=== PATIENT | male | born 1950 | race Caucasian/White ===

== ENCOUNTER 2024-12-12 05:59 | Emergency (ER) | payer MEDICARE, MEDICAID, SELFPAY ==
[2024-12-12 06:08] VITALS: BP 168/84; BMI 22.7
--- NOTE | 2024-12-12 06:55 | ED.GENMED ---
History of Present Illness
General
Chief Complaint: Crisis Evaluation
Source: patient
Time Seen by Provider: 12/12/24 06:47
History of Present Illness
History of Present Illness:
74-year-old male presents to the emergency room complaining of running out of his medication, Klonopin, 7 days ago. He is feeling withdrawal symptoms which is increased anxiety and restlessness. He states today he felt like slitting his wrists
because of these feelings. He did not actually do anything to hurt himself. Patient receives his medication from his primary care provider. However he ran out of the medicine because he was taking extra as so his primary care doctor would not
refill it early. Otherwise patient has no complaints.
Past History
Past History
ED Past Medical History: CAD, COPD, HTN, [place] (2001, 2003), Psychiatric (Depression) and Other (Hep C, GI bleeding, Cellulitis of the finger, Peripheral neuropahcy, Suicidal behavior, MRSA, Pancreatitis)
ED Past Surgical History: Appendectomy, Cardiac (PTCA with stent 1991, 1992), Tonsilectomy and Other (Hernia repair)
Social History
Tobacco: Smoker
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
Drug: Narcotics (Prescription drug abuse)
Personal:
Living: with family
Employment: Not employed
Family History
Family History: Other (Father with alcoholism and coronary disease and stroke)
Phy Exam
Physical Exam
Physical Exam:
General: Awake, Alert, Oriented X3. No acute distress. Appears stated age
Vitals: unremarkable
Head: Atraumatic
Eyes: Pupils equal, EOMI
Throat: Airway intact, no exudates
Neck: Trachea midline
Lungs: Clear and equal b/l
Heart: Regular rate, no murmurs
Abd: Soft, Nontender, No pulsatile mass
Neuro: Grossly nonfocal exam normal
Skin: Warm, dry, no rash
Extremities: pulses equal b/l, no edema
Course
Orders/Labs/Results
Orders:
Orders
12/12/24 06:15
1:1 Observation - Suicide/ Violent Behavior As Directed
Crisis Consult Urgent
Reason for Consult: SI
12/12/24 06:54
Clonazepam [Klonopin] 1 mg PO NOW STA
12/12/24 07:19
CR Chest - 2 Views Urgent
Comment:
Reason For Exam: copd
12/12/24 07:27
Alcohol Urgent
Aspirin level [Salicylate] Urgent
Basic Metabolic Panel Urgent
Complete Blood Count/With Diff Urgent
TSH Reflex To Free T4 Urgent
Tylenol [Acetaminophen] Urgent
12/12/24 10:40
Urine Drug Abuse Screen Urgent
Date Specimen was Collected: 12/12/24
Time Specimen was Collected: 10:32
Abnormal Lab Results
12/12/24 12/12/24
07:27 10:40
RBC 4.44 L 10^6/uL
(4.70-6.10)
Hgb 12.7 L g/dL
(13.0-18.0)
Hct 37.7 L %
(39.0-52.0)
RDW 21.4 H %
(11.5-14.5)
Abs Immat Gran (auto) 0.6 H 10^3/uL
(0-0.05)
Absolute Monos (auto) 1.0 H 10^3/uL
(0.1-0.6)
Absolute Basos (auto) 0.4 H 10^3/uL
(0-0.2)
Immature Gran % 6.6 H %
(0-0.5)
Lymphocytes % 14.4 L %
(20.5-51.1)
Monocytes % 10.5 H %
(1.7-9.3)
Basophils % 3.8 H %
(0-2)
Sodium 131 L mmol/L
(135-145)
Chloride 97 L mmol/L
(98-107)
Creatinine 0.6 L mg/dL
(0.7-1.3)
Salicylates < 1.0 L mg/dl
(2.0-20.0)
Ur Tricyclics Screen Positive H
(Negative)
12/12/24 07:27
12/12/24 07:27
Vital Signs
Initial and Last Documented VS:
Initial Vital Signs
Temp Pulse Resp BP Pulse Ox
98.9 F 94 22 168/84 97
12/12/24 06:08 12/12/24 06:08 12/12/24 06:08 12/12/24 06:08 12/12/24 06:08
Last Documented Vital Signs
Temp Pulse Resp BP Pulse Ox
97.5 F 75 20 145/86 99
12/12/24 12:00 12/12/24 12:00 12/12/24 12:00 12/12/24 12:00 12/12/24 12:00
MDM/Problems Addressed
Differential Diagnosis Includes:
Suicidal ideations, depression, benzo withdrawal
MDM/Problems Addressed:
Patient presents with suicidal ideations. He is willing to voluntarily sign in for psychiatric care. Physical exam shows no acute or unstable medical conditions. Labs are obtained and showed no unstable conditions that would prevent him from
obtaining inpatient psychiatric care. He does have some chronic medical conditions including COPD and hypertension. However all of these issues are well-controlled at this point. Patient is medically stable and medically cleared for psychiatric
treatment
*Radiology
Radiology exam reviewed: preliminary read by ED provider (No acute disease based on my review of the patient's chest x-ray)
*Pulse Oximetry
Patient hypoxic: no
*Critical Care Note
Total Time (30-74mins, 75-104mins- exclusive of procedures): Not Applicable
ED Attending Note
-
Portions of this chart may have been created with voice recognition software.� Occasional wrong word or��sound alike� substitutions may have occurred due to the inherent limitations of voice recognition software.
Discharge Plan
Departure
Patient Disposition: Psych Facility
Date of Disposition: 12/12/24
Time of Disposition: 09:41
Condition: Fair
Discharge Problem:
Suicidal ideations
Prescriptions:
No Action
trazodone 50 MG tablet
25 mg PO BID@0800,1800
clonazepam 0.5 MG tablet
0.5 mg PO BIDPRN PRN (Reason: anxiety)
clonazepam 0.5 MG tablet
0.5 mg PO DAILY@1800
quetiapine 100 MG tablet
100 mg PO BID
trazodone 100 MG tablet
200 mg PO HS
gabapentin 300 MG capsule
600 mg PO HS
lithium carbonate 300 MG tablet
300 mg PO BID
gabapentin 400 MG capsule
400 mg PO BID@0800,1800
Referrals:
UNKNOWN - PT NOT,INTERVIEWE [Family Provider] -
Interventions
Interventions:
*Risk Screen - Suicide Last Done: 12/12/24 06:08
*General Assessment Last Done: 12/12/24 06:08
*Neglect/Abuse Screening Last Done: 12/12/24 06:08
ED- Fall Risk Assessment Last Done: 12/12/24 07:18
*ED COVID-19 Vaccine History Last Done: 12/12/24 07:18
ED-Psychological Assessment Last Done: 12/12/24 07:18
Discharge Date and Time
Print Language: UPPER SORBIAN
[2024-12-12] MEDS: KLONOPIN 1 MG PO ×2 (07:11→14:56)
[2024-12-12 07:18] VITALS: BP 131/85
[2024-12-12 07:42] LABS: Hematocrit 37.7 % (39.0-52.0); Hemoglobin 12.7 g/dL (13.0-18.0); Mean Corp Hgb Conc. 33.7 g/dL (33.0-37.0); Mean Corpuscular Hgb 28.6 pg (27.0-31.0); Mean Corpuscular Volume 84.9 fL (80.0-94.0); Mean Platelet Volume 9.3 fL (7.4-10.4); Platelet Count 243 10^3/uL (130-400); Red Blood Cell Count 4.44 10^6/uL (4.70-6.10); Red Cell Dist. Width 21.4 % (11.5-14.5); White Blood Cell Count 9.3 10^3/uL (4.8-10.8)
[2024-12-12 07:55] LABS: Acetaminophen 10 ug/ml (10-30); Blood Urea Nitrogen 16 mg/dl (9-20); Calcium 8.8 mg/dl (8.4-10.2); Carbon Dioxide 28 mmol/L (22-30); Chloride 97 mmol/L (98-107); Estimated Creatinine Clearance 117 ml/min; Glucose 98 mg/dl (70-99); Potassium 4.6 mmol/L (3.5-5.1); Salicylate < 1.0 mg/dl (2.0-20.0); Sodium 131 mmol/L (135-145); eGFR > 60.00
[2024-12-12 07:56] LABS: Alcohol None Detected
[2024-12-12 08:16] LABS: % Basophils 3.8 % (0-2); % Eosinophils 5.1 % (0-6); % Immature Granulocytes 6.6 % (0-0.5); % Lymphocytes 14.4 % (20.5-51.1); % Monocytes 10.5 % (1.7-9.3); % Neutrophils 59.6 % (42.2-75.2); Absolute Basophils 0.4 10^3/uL (0-0.2); Absolute Eosinophils 0.5 10^3/uL (0-0.7); Absolute Immature Granulocytes 0.6 10^3/uL (0-0.05); Absolute Lymphocytes 1.3 10^3/uL (1.2-3.4); Absolute Neutrophils 5.6 10^3/uL (1.4-6.5); Nucleated Red Blood Cells % 0 % (-)
[2024-12-12 08:31] LABS: TSH Reflex To Free T4 1.25 uIU/ml (0.47-4.68)
[2024-12-12 11:24] LABS: Amphetamines Negative (Negative); Barbiturates Negative (Negative); Benzodiazepines Negative (Negative); Buprenorphine Negative (Negative); Cocaine Negative (Negative); Marijuana Negative (Negative); Methadone Negative (Negative); Methamphetamines Negative (Negative); Opiates Negative (Negative); Phencyclidine Negative (Negative); Tricyclic Antidepressants Positive (Negative)
[2024-12-12 12:00] VITALS: BP 145/86
[2024-12-12 16:00] VITALS: BP 142/75
--- NOTE | 2024-12-12 19:15 | EDRN ---
Report received, patient is sleeping, should be going to [facility] tonight, transport delayed due to power issues
== END 2024-12-12 22:53 ==
LOC: EMR 05:59
PROVIDERS: EMERGENCY PHYSICIAN Emergency Medicine
DX: R45.851 Suicidal ideations (principal); F41.9 Anxiety disorder, unspecified; F32.A Depression, unspecified; F17.200 Nicotine dependence, unspecified, uncomplicated; I10 Essential (primary) hypertension; I25.10 Atherosclerotic heart disease of native coronary artery without angina pectoris; I25.2 Old myocardial infarction; J44.9 Chronic obstructive pulmonary disease, unspecified; Z86.19 Personal history of other infectious and parasitic diseases; Z95.5 Presence of coronary angioplasty implant and graft; Z79.899 Other long term (current) drug therapy
CPT/HCPCS: 99285; 71046; 80048; 80143; 80179; 80306; 82077; 84443; 85025

== ENCOUNTER 2025-09-09 09:55 | Inpatient (IN) | payer OTHER, MEDICAID, SELFPAY ==
[2025-09-08] VITALS (10 sets, daily range): BP systolic 95–130; BP diastolic 50–119; PULSE 66–76; BMI 20.9; BMI 20.2
[2025-09-08 18:50] LABS: Glucose - Point of Care 91 mg/dl (70-99)
[2025-09-08 19:04] LABS: ALT (SGPT) 19 U/L (0-50); AST (SGOT) 26 U/L (17-59); Albumin 3.7 g/dl (3.5-5.0); Alkaline Phosphatase 67 U/L (38-126); Blood Urea Nitrogen 18 mg/dl (9-20); Calcium 8.8 mg/dl (8.4-10.2); Carbon Dioxide 32 mmol/L (22-30); Chloride 95 mmol/L (98-107); Estimated Creatinine Clearance 80 ml/min; Glucose 86 mg/dl (70-99); Potassium 4.5 mmol/L (3.5-5.1); Sodium 129 mmol/L (135-145); Total Protein 6.8 g/dl (6.3-8.2); eGFR > 60.00
[2025-09-08 19:09] LABS: Hematocrit 34.3 % (39.0-52.0); Hemoglobin 10.6 g/dL (13.0-18.0); Mean Corp Hgb Conc. 30.9 g/dL (33.0-37.0); Mean Corpuscular Volume 91.2 fL (80.0-94.0); Platelet Count 198 10^3/uL (130-400); Red Cell Dist. Width 19.6 % (11.5-14.5)
[2025-09-08 19:16] LABS: Troponin I 0.014 ng/ml
--- NOTE | 2025-09-08 19:26 | ED.GENMED ---
History of Present Illness
General
Chief Complaint: Failure to Thrive
Source: patient
Exam Limitations: none
Time Seen by Provider: 09/08/25 19:03
Nursing documentation reviewed up to this point in time: agreed with
History of Present Illness
History of Present Illness:
Patient presents to ED secondary to fall at home, secondary to feeling lightheaded along with 'tremor'. Patient reports hitting his forehead on the floor when he fell down. Denies loss of consciousness. Denies neck pain. Denies preceding chest
pain or palpitations. Denies nausea, vomiting, or diarrhea. Denies headache. Denies blurry vision. Denies loss of sensation or weakness. Patient reports that his of over 50 years recently passed. Patient reports feeling sad and only
eating maybe 1 meal a day, or whenever he feels hungry. Denies lack of sleep. Denies suicidal ideation. Denies recent change in medications. Denies recent illness.
Past History
Past History
ED Past Medical History: CAD, COPD, HTN, [place] (2001, 2003), Psychiatric (Depression) and Other (Hep C, GI bleeding, Cellulitis of the finger, Peripheral neuropahcy, Suicidal behavior, MRSA, Pancreatitis)
ED Past Surgical History: Appendectomy, Cardiac (PTCA with stent 1991, 1992), Tonsilectomy and Other (Hernia repair)
Social History
Tobacco: Smoker
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
Drug: Narcotics (Prescription drug abuse)
Personal:
Living: with family
Employment: Not employed
Family History
Family History: Other (Father with alcoholism and coronary disease and stroke)
Review of Systems
Review of Systems
Allergies reviewed?: Yes
All Other Systems: ROS reviewed and negative except as documented in HPI and ROS
Constitutional: Reports no symptoms; Denies fever
Respiratory: Reports no symptoms
Cardiac: Reports no symptoms
ABD/GI: Reports no symptoms
Musculoskeletal: Reports no symptoms
Skin: Reports no symptoms
Neurological: Reports weakness and other (tremor)
Phy Exam
Physical Exam
Physical Exam:
Physical Exam
General: no apparent distress, not acutely ill. afebrile
Head: an approx 1cm area of ecchymosis/swelling over left forehead without active bleeding. minimally tender to palpation
Neck: supple. normal range of motion. no midline tenderness
Heart: s1/s2 regular rate and rhythm
Lungs: no acute respiratory distress. clear bilaterally
Abdomen: normal bowel sounds. not tender.
Neuro: alert and oriented x 3. no focal neurological deficits. normal speech
Skin: no rash
Psychiatric: well kept. interactive and cooperative
Extremities: no edema. no calf tenderness.
Course
Orders/Labs/Results
Orders:
Orders
09/08/25 18:33
Electrocardiogram (*1) Urgent
Reason for Study: Vertigo / Dizzy
EKG- Treatment ONCE
09/08/25 18:42
CMP [Comprehensive Metabolic Panel] Urgent
Complete Blood Count/With Diff Urgent
Magnesium Urgent
Comment: ADD ON
Manual Differential Urgent
TSH Reflex To Free T4 Urgent
Comment: ADD ON
Troponin I Urgent
09/08/25 19:24
Add On- LAB Urgent
Tests Added?: TSH to reflex Free 4. Magnesium, serum osm
Orthostatic VS- Treatment ONCE
09/08/25 19:32
0.9% Sodium Chloride 1000 ml [Nss] 1,000 ml IV BOLUS
09/08/25 19:39
CT Head W/o Iv Contrast Urgent
Comment:
Reason For Exam: trauma to left frontal scalp
09/08/25 20:40
0.9% Sodium Chloride 500 ml [Nss] 500 ml IV BOLUS
09/08/25 21:24
CR Chest - 2 Views Urgent
Comment:
Reason For Exam: cough/sob
09/08/25 21:46
Bladder Scan- Treatment ONCE
Uribe Placement- Treatment ONCE
Reason for insertion: Acute Retention
09/08/25 21:48
Albuterol Nebs [Ventolin Nebules] 2.5 mg INH R NOW STA
Dexamethasone Sod Phosphate [Decadron] 6 mg IV NOW STA
09/08/25 22:00
0.9% Sodium Chloride 500 ml [Nss] 500 ml IV 100 mls/hr
09/08/25 22:19
Admit/Transfer Patient As Directed
Co-Sign Provider:
Level of Care: Observation services
Assign to:: Telemetry
Physician / Group: robinson
Diagnosis: orthostatic hypotension, fall
Reason for Telemetry: Arrhythmia
Date to Stop Telemetry: 09/11/25
Time to Stop Telemetry: 11:00
Code Status As Directed
Resuscitation Status: Do not resuscitate
Reached after discussion with pt or family/Healthcare POA: Yes
Urine Osmolality Random [Osmolality, Random Urine] Urgent
Date Specimen was Collected: 09/08/25
Time Specimen was Collected: 22:14
Urine Sodium Urgent
Date Specimen was Collected: 09/08/25
Time Specimen was Collected: 22:14
PRN Pain Medication Management As Directed
May give lesser potent ordered pain med per pt: Yes
preference::
Protocol:: Medication orders for pain may be administered in a
manner that supports deferring to patient preference
when the pt is:
- Requesting an ordered lesser potent pain medication.
Least to most potent pain medications are defined
as: acetaminophen < NSAID < tramadol < opioids
(morphine, oxycodone, hydromorphone).
- Requesting a lesser dose of the same medication IF
ORDERED.
- Requesting a less intrusive route of administration
if both routes are prescribed by the provider (PO <
IV).
11/13/25 22:20
COVID-19 Antigen Urgent
Source: Nasal Swab
D-Dimer Urgent
Urinalysis Reflex To Culture Urgent
Date Specimen was Collected: 09/08/25
Time Specimen was Collected: 22:14
Urine Microscopic Reflex Cult Urgent
DNR Bracelet Application ONCE
09/11/25 11:00
DC Protocol for Telemetry ONCE
Abnormal Lab Results
09/08/25 09/08/25 09/08/25
18:42 22:19 22:20
RBC 3.76 L 10^6/uL
(4.70-6.10)
Hgb 10.6 L g/dL
(13.0-18.0)
Hct 34.3 L %
(39.0-52.0)
MCHC 30.9 L g/dL
(33.0-37.0)
RDW 19.6 H %
(11.5-14.5)
Lymphocytes (Manual) 14 L %
(20-51)
Eosinophils (Manual) 10 H %
(0-6)
D-Dimer 0.95 H ug/mlFEU
(0.00-0.50)
Sodium 129 L mmol/L
(135-145)
Chloride 95 L mmol/L
(98-107)
Carbon Dioxide 32 H mmol/L
(22-30)
Urine Bacteria (Reflex) Few A
(Negative)
Urine Osmolality 252 L mOsm/kg
(300-900)
Urine Albumin (Reflex) 1+ A
(Neg - Trace)
09/08/25 18:42
09/08/25 18:42
Vital Signs
Initial and Last Documented VS:
Initial Vital Signs
Temp Pulse Resp BP Pulse Ox
98.4 F 75 16 110/59 92
09/08/25 18:35 09/08/25 18:35 09/08/25 18:35 09/08/25 18:35 09/08/25 18:35
Last Documented Vital Signs
Temp Pulse Resp BP Pulse Ox
98.4 F 58 16 110/59 92
09/08/25 18:35 09/08/25 22:45 09/08/25 22:45 09/08/25 22:00 09/08/25 20:45
MDM/Problems Addressed
MDM/Problems Addressed:
Orthostatic vital signs noted. When standing up, patient noted to become mildly hypertensive, but more importantly, very unstable on his feet and shaking, as if trying to prevent himself from falling down. Patient assisted back onto the stretcher
and lay down.
Patient found to be hypoxic (87% room air) on initial arrival, improved with supplemental oxygen. In addition, after 1.5 L of normal saline, patient unable to urinate. As such, bladder scan performed, which reveals urine greater than 1 L. Patient
with history of BPH, reports that he has required Uribe catheter in the past secondary to urinary difficulties. Uribe catheter will be inserted in ED, with consultation to urology.
Dr. Galarza, urology, notified via [facility] text.
*Pulse Oximetry
SaO2: 96
Oxygen Mode of Delivery: Room air
Patient hypoxic: yes
*EKG
Interpreted by ED Provider?: Yes
EKG Intrepretation Date: 09/08/25
Heart Rate: 70
Rate: normal
Rhythm: sinus
[place]: normal axis
Interval: normal interval
*Critical Care Note
Total Time (30-74mins, 75-104mins- exclusive of procedures): Not Applicable
ED Attending Note
-
Portions of this chart may have been created with voice recognition software.� Occasional wrong word or��sound alike� substitutions may have occurred due to the inherent limitations of voice recognition software.
Discharge Plan
Departure
Patient Disposition: Admit
Date of Disposition: 09/08/25
Time of Disposition: 21:53
Admit to: Telemetry
Presentation/result/management discussed w/ accepting MD/DO: Hospitalist
Discharge Problem:
Weakness, Acute hyponatremia, Acute urinary retention, COPD exacerbation
Interventions
Interventions:
*Risk Screen - Suicide Last Done: 09/08/25 18:35
*General Assessment Last Done: 09/08/25 20:07
*Neglect/Abuse Screening Last Done: 09/08/25 18:35
*ED- Fall Risk Assessment Last Done: 09/08/25 18:35
*ED COVID-19 Vaccine History Last Done: 09/08/25 20:07
*ED Influenza Vaccine History Last Done: 09/08/25 20:07
*Nursing Disposition Last Done: 09/08/25 23:09
Discharge Date and Time
Discharge Date/Time: 09/08/25 23:09
[2025-09-08 19:48] LABS: Absolute Neutrophils -Man Diff 5.3 10^3/uL (1.4-6.5); Anisocytosis 2+; Hypochromasia 1+; Normal RBC Morphology No; Platelets Checked Yes; Poikilocytosis 1+
[2025-09-08 19:49] LABS: Ovalocytes 1+; Total Cells Counted 100
[2025-09-08 20:03] LABS: Magnesium 1.7 mg/dl (1.6-2.3)
[2025-09-08] MEDS: NSS 1000 IV (20:13)
[2025-09-08] MEDS: NSS 500 IV ×2 (20:43→23:58)
[2025-09-08] MEDS: DECADRON 6 MG IV (22:15)
[2025-09-08] MEDS: VENTOLIN NEBULES 2.5 MG INH (22:15)
--- NOTE | 2025-09-08 22:23 | HPS.HSE ---
Family Physician
-
Family Physician: Tre Cosme MD
Chief Complaint
-
fall, shortness of breath
History of Present Illness
75-year-old male past medical history of BPH status post TURP, history of urinary retention, CAD, COPD, orthostatic hypotension, anxiety/depression, peripheral neuropathy, former alcohol use disorder, active smoker, presenting with fall at home.
He states that he has had lightheadedness and low blood pressure with ambulation for several years after prior MS.
He felt lightheaded and had a tremor. He hit his forehead on the floor when he fell down. Denies headache or blurry vision. Denies loss of consciousness. Denies neck pain. Denies chest pain or palpitations. Denies nausea vomiting or diarrhea.
He has been having shortness of breath for years secondary to COPD. Shortness of breath has been dry but changed to more productive over the past year. Denies any sore throat or bodyaches.
His recently . He reports that he has been eating and sleeping well. Denies suicidal ideation. He has had suicide attempts in the past.
He has a history of significant alcohol use in the past. Smokes daily.
Medical History
Past Medical History
Past Medical History: Reports Other (BPH status post TURP, history of urinary retention, CAD, COPD, orthostatic hypotension, anxiety/depression, peripheral neuropathy, former alcohol use disorder, active smoker)
Past Surgical History: Reports Other (Appendectomy, Cardiac (PTCA with stent 1991, 1992), Tonsilectomy and Other (Hernia repair))
Social History
Tobacco: Non-smoker
Alcohol: None
Drug: None
Family History
Family History: Not pertinent
Allergies / Home Medications
Allergies reflects when Allergies were last updated in [facility].
Home Medications with original date entered in [facility]
Allergy/Medication List:
Allergies
Allergy/AdvReac Type Severity Reaction Status Date / Time
clopidogrel bisulfate (From AdvReac Intermediate upper GI Verified 08/09/18 11:03
Plavix) bleed
Home Medications
clonazepam 0.5 mg tablet 0.5 mg PO BIDPRN PRN anxiety 06/04/18
clonazepam 0.5 mg tablet 0.5 mg PO DAILY@1800 06/04/18
gabapentin 300 mg capsule 600 mg PO HS 06/04/18
gabapentin 400 mg capsule 400 mg PO BID@0800,1800 06/04/18
lithium carbonate 300 mg tablet 300 mg PO BID 06/04/18
quetiapine 100 mg tablet 100 mg PO BID 06/04/18
trazodone 100 mg tablet 200 mg PO HS 06/04/18
trazodone 50 mg tablet 25 mg PO BID@0800,1800 06/04/18
Review of Systems
-
History Source: Patient
A 12 point ROS was completed and negative except as noted: Yes
Constitutional: Reports No Symptoms
EENT: Reports No Symptoms
Respiratory: Reports No Symptoms
Cardiac: Reports No Symptoms
Abdomen/GI: Reports No Symptoms
: Reports No Symptoms
Musculoskeletal: Reports No Symptoms
Skin: Reports No Symptoms
Neurological: Reports No Symptoms
Endocrine: Reports No Symptoms
Hematologic/Lymphatic: Reports No Symptoms
Psych: Reports No Symptoms
Physical Exam
Vital Signs
Vital Signs
Temp Pulse Resp BP Pulse Ox
98.4 F 69 17 98/55 92
09/08/25 18:35 09/08/25 21:00 09/08/25 21:00 09/08/25 21:00 09/08/25 20:45
Physical Exam
General: Well Developed, Well Nourished and No Apparent Distress
HEENT: NormoCephalic, Moist mucous membranes and Atraumatic
Respiratory: Wheezes
Cardiac: S1/S2 and Regular Rhythm; No Murmur or Rub
GI: Soft, Non Tender, Non Distended and Normal Bowel Sounds; No Organomegaly
Rectal: Deferred by Provider
Musculoskeletal: No Clubbing, No Cyanosis and No Edema
Skin: No Rash
Neuro: Nonfocal/grossly intact
Laboratory Results
-
09/08/25 18:42
09/08/25 18:42
Laboratory Results
Total Bilirubin 0.9 mg/dl (0.2-1.3) 09/08/25 18:42
AST 26 U/L (17-59) 09/08/25 18:42
ALT 19 U/L (0-50) 09/08/25 18:42
Alkaline Phosphatase 67 U/L (38-126) 09/08/25 18:42
Troponin I 0.014 ng/ml 09/08/25 18:42
Data Reviewed
-
Lab Data: Labs Reviewed by me
Old Records: Reviewed
Impression/Plan
-
IMPRESSION:
PLAN:
# Falls likely secondary to orthostatic hypotension
# History of orthostatic hypotension
- IV fluids given
-Check orthostatic vitals
- PT OT
# Urinary retention secondary to BPH
# History of BPH status post TURP
-Bladder scan revealed 1500 cc
- Uribe catheter placed
# Acute hypoxemia secondary to possible acute COPD exacerbation versus chronic COPD/active smoker
-Minimal wheezing on examination and symptoms appear to be more chronic rather than acute exacerbation
- O2 saturation 87%
- COVID pending
- DuoNebs every 6 hours
-Dexamethasone 4 mg every 12
CAD
Anxiety/depression
Peripheral neuropathy likely secondary to former alcohol use
Former alcohol use disorder
Active smoker
- Nicotine patch
DNR/DNI
DVT prophylaxis�heparin
Regular diet
[2025-09-08 22:28] LABS: Urine Character Clear (Clear)
[2025-09-08 22:38] LABS: D-Dimer 0.95 ug/mlFEU (0.00-0.50)
[2025-09-08 22:45] LABS: COVID-19 Antigen Negative (Negative)
[2025-09-08 22:55] LABS: Urine Red Blood Cell 0-2 /HPF (0-2)
--- NOTE | 2025-09-08 23:24 | PTCARENOTE ---
Pt arrived onto floor via stretcher. Pt AAOx3 and a open shank coverer to the bed. Pt with no complaints of pain at this time. Pt oriented to room and call strange; will continue to monitor.
[2025-09-09] VITALS (11 sets, daily range): BP systolic 86–130; BP diastolic 46–72; PULSE 59–72; O2SAT 93
[2025-09-09] MEDS: NSS IV ×2 (04:31→16:53)
[2025-09-09] MEDS: KLONOPIN 1 MG PO ×3 (06:33→21:46)
[2025-09-09 07:10] LABS: Hematocrit 35.4 % (39.0-52.0); Hemoglobin 10.7 g/dL (13.0-18.0); Mean Corp Hgb Conc. 30.2 g/dL (33.0-37.0); Mean Corpuscular Volume 93.9 fL (80.0-94.0); Platelet Count 185 10^3/uL (130-400); Red Cell Dist. Width 19.6 % (11.5-14.5)
[2025-09-09 07:19] LABS: ALT (SGPT) 17 U/L (0-50); AST (SGOT) 25 U/L (17-59); Albumin 3.4 g/dl (3.5-5.0); Alkaline Phosphatase 62 U/L (38-126); Blood Urea Nitrogen 14 mg/dl (9-20); Calcium 8.2 mg/dl (8.4-10.2); Carbon Dioxide 32 mmol/L (22-30); Chloride 101 mmol/L (98-107); Estimated Creatinine Clearance 88 ml/min; Glucose 155 mg/dl (70-99); Potassium 4.8 mmol/L (3.5-5.1); Sodium 135 mmol/L (135-145); Total Protein 6.3 g/dl (6.3-8.2); eGFR > 60.00
[2025-09-09] MEDS: DUONEB 3 ML INH ×4 (07:41→19:18)
[2025-09-09 07:47] LABS: Absolute Neutrophils -Man Diff 2.6 10^3/uL (1.4-6.5); Normal RBC Morphology No; Platelets Checked Yes
[2025-09-09 07:48] LABS: Anisocytosis 1+; Hypochromasia 1+; Polychromasia 1+
[2025-09-09 07:49] LABS: Acanthocytes 1+; Ovalocytes 1+; Total Cells Counted 100; Toxic Granulation 1+
--- NOTE | 2025-09-09 07:50 | W.PN.HOSP.TC ---
Today's Communication/Plan
-
see a/p
Assessment / Plan
Assessment / Plan
Physical Exam
General: No acute distress, appears relatively comfortable at this time.
HEENT: NormoCephalic, Moist mucous membranes and Atraumatic
Respiratory: clear to auscultation b/l
Cardiac: S1/S2 and Regular Rhythm; No Murmur or Rub
GI: Soft, Non Tender, Non Distended and Normal Bowel Sounds; No Organomegaly
Musculoskeletal: No Clubbing, No Cyanosis and No Edema
Skin: No Rash
Neuro: AOx3 conversant coherent
Psych: Calm
75M BPH TURP CAD COPD Orthostatic hypotension Anxiety/Depression Neuropathy Chronic Pain on Suboxone Former ETOH abuse current Tobacco here for evaluation fall found to be hypoxic requiring oxygen supplementation 3L and retaining urine requiring
Uribe placement. CXR would note right middle lobe foreign body determined to be a Dime following removal via bronchoscopy by Pulm. Patient denies any recollection of aspirating coin.
# Acute hypoxemia likely 2/2 Dime aspiration possible associate COPD exacerbation
-Pulm eval appreciated s/p bronchoscopy foreign body removal 09/09
-DuoNebs every 6 hours
-Dexamethasone 4 mg every 12
# Falls likely secondary to orthostatic hypotension
# History of orthostatic hypotension
- IV fluids given
-Monitor Orthostatic vitals
- PT OT appreciated SNF rehab
# Urinary retention secondary to BPH
# History of BPH status post TURP
-Bladder scan revealed 1500 cc
- Uribe catheter placed
-Urology Eval appreciated Flomax discontinued given risk of falls, outpt follow up with his urologist at [facility] recommended.
#CAD
-cont asa statin
Anxiety/depression/Insomnia
Neuropathy, Chronic pain
-cont duloxetine, tid klonopin
-cont gabapentin duloxetine
-hold doxepin and bedtime klonopin due to concerns polypharmacy contributing to fall as above
-cont buprenorphine 4 mg daily (substituted for patient's home Suboxone)
-notably patient reports taking suboxone as needed daily instead of scheduled and at significantly reduced dose as noted in pdmp (0.5 mg daily prn instead of 1.5 mg daily)
Gluteal Cleft MASD
-wound care eval appreciated
-Tylenol PRN mild pain, Oxycodone 2.5 mg prn mod severe pain
Active smoker
- Nicotine patch
DNR/DNI
DVT prophylaxis�heparin
Regular diet
Offered to update NOK/family, patient declined
I spent a total of 50 minutes with the patient or on the floor. More than 50% of this time involved counseling and coordination of care.
Anticipated Discharge: 24 - 48 hours
Subjective/Interval History
-
Date of Service: September 09, 2025
Seen and examined at bedside in no acute distress resting comfortably in bed. reports pain from sacral wnd. On nasal cannula 3L. Denies sob.
Objective Data
-
Labs:
Laboratory Results
09/09/25
06:11
WBC 4.4 L
Hgb 10.7 L
Hct 35.4 L
Plt Count 185
Sodium 135
Potassium 4.8
Chloride 101
Carbon Dioxide 32 H
BUN 14
Creatinine 0.7
Glucose 155 H
Calcium 8.2 L
Total Bilirubin 0.5
AST 25
ALT 17
Alkaline Phosphatase 62
Vital Signs:
Vital Signs
Temp Pulse Resp BP Pulse Ox
97.4 F 59 18 113/55 97
09/09/25 03:27 09/09/25 07:44 09/09/25 07:44 09/09/25 03:27 09/09/25 07:44
I&O
09/08/25 09/09/25 09/10/25
06:59 06:59 06:59
Intake Total 1180 / 1180
Output Total 3400 / 3400
Balance -2219 / -2219
[2025-09-09] MEDS: NSS 1000 IV ×2 (08:55→23:34)
[2025-09-09] MEDS: NICODERM TRANSDERMAL 14 MG TRANSDERM (08:56)
[2025-09-09] MEDS: SUBUTEX 8 MG SL (08:56)
[2025-09-09] MEDS: HEPARIN 5000 UNITS SC ×2 (08:56→21:46)
[2025-09-09] MEDS: DECADRON 4 MG IV ×2 (08:58→21:47)
--- NOTE | 2025-09-09 10:29 | CON.PUL ---
Consultation
Consultation Request
Date/Time Consultation Requested: 09/09/2025
Date/Time Consultation Performed: 09/09/2025
Reason for Consultation: Concern for foreign body in airway
Medical History
-
Chief Complaint: Dizziness, shortness of breath
History of Present Illness:
Patient is a very pleasant 75-year-old gentleman with history of BPH and longstanding smoking history as well as underlying COPD who presented to the hospital for lightheadedness and the symptoms of orthostasis which he has had for a long time and
increased shortness of breath over the last few days. Patient reports chronic cough related to smoking and COPD for which he uses as needed albuterol only. He has not been seen by hall monitor in the past and does not recall ever having pulmonary
function testing performed. Patient does not report any episode of choking. He does not report or recall any episode of chewing on a plane or any foreign body. He was admitted to the hospital service and had a chest x-ray performed which is
concerning for around metallic foreign body in the right mainstem area. Patient reports increased cough and shortness of breath over the last few days and noted to be wheezing on exam. Patient was started on bronchodilators as well as IV steroids
and pulmonary consultation was requested for further input regarding concern for foreign body in the airway.
Past Medical History
Past Medical History: Reports Other (BPH status post TURP, history of urinary retention, CAD, COPD, orthostatic hypotension, anxiety/depression, peripheral neuropathy, former alcohol use disorder, active smoker)
Past Surgical History: Reports Other (Appendectomy, Cardiac (PTCA with stent 1991, 1992), Tonsilectomy and Other (Hernia repair))
Social History
Tobacco: Patient smokes a pack to pack and 1/2/day, 70-[id number] smoking history.
Alcohol: None
Drug: None
Family History
Family History: Not pertinent
Allergies / Home Medications
Allergies
Allergy/AdvReac Type Severity Reaction Status Date / Time
clopidogrel bisulfate (From AdvReac Intermediate upper GI Verified 08/09/18 11:03
Plavix) bleed
Home Medications
�Medication �Instructions �Recorded �Confirmed �Last Taken �Type
albuterol 90 mcg PRN SOB 09/09/25 Unknown History
aspirin 81 mg capsule 81 mg PO DAILY Blood Clot 09/09/25 09/09/25 Unknown History
Prevention/Tx
atorvastatin 20 mg tablet 20 mg PO DAILY High Cholesterol 09/09/25 09/09/25 Unknown History
buprenorphine 8 mg-naloxone 2 mg 1.5 tab sublingual DAILY Pain 09/09/25 09/09/25 Unknown History
sublingual tablet
clonazepam 0.5 mg tablet 0.5 mg PO HS 09/09/25 09/09/25 Unknown History
clonazepam 1 mg tablet 1 mg PO TID Mental Health/Anxiety 09/09/25 09/09/25 Unknown History
cyclobenzaprine 10 mg tablet 10 mg PO BID PRN muscle spasms 09/09/25 09/09/25 Unknown History
doxepin 50 mg capsule 50 mg PO HS Mental Health/Anxiety 09/09/25 09/09/25 Unknown History
duloxetine 30 mg capsule,delayed 30 mg PO DAILY Depression 09/09/25 09/09/25 Unknown History
release sprinkle
duloxetine 40 mg capsule,delayed 40 mg PO HS Depression 09/09/25 09/09/25 Unknown History
release
fluticasone furoate 100 1 inh inhalation DAILY 09/09/25 09/09/25 Unknown History
mcg-vilanterol 25 mcg/dose Lung/Breathing Issues
inhalation powder (Breo Ellipta)
gabapentin 300 mg capsule 300 mg PO TID Neurological 09/09/25 09/09/25 Unknown History
Condition
svcnbonctrcb-dgzhroah-norxif tablet 1 tab PO DAILY Supplement 09/09/25 09/09/25 Unknown History
nicotine 21 mg/24 hr daily 1 patch transdermal DAILY Smoking 09/09/25 09/09/25 Unknown History
transdermal patch Cessation
polyethylene glycol 3350 17 gram 17 g PO DAILY Constipation 09/09/25 09/09/25 Unknown History
oral powder packet (Miralax)
tamsulosin 0.4 mg capsule 0.4 mg PO DAILY Urinary Issue 09/09/25 09/09/25 Unknown History
Review of Systems
-
Hematologic/Lymphatic: Other (All 14 systems reviewed and negative except as stated above in the history of present illness.)
Vitals / Labs / Diagnostic Testing
Vital Signs
Temp Pulse Resp BP Pulse Ox
98.1 F 59 18 99/47 96
09/09/25 07:49 09/09/25 07:49 09/09/25 07:49 09/09/25 07:49 09/09/25 07:49
Lab Data
09/09/25 06:11
09/09/25 06:11
Diagnostic Testing:
Physical Exam
-
HEENT: Normocephalic
Cardiovascular: S1/S2
Respiratory: Wheeze (Mild end expiratory wheezing, right more than left)
GI: Soft and Non Distended
Neurology: Awake, Alert and Oriented
Skin: Warm
General: Comfortable
Assessment
-
#1. Suspected Foreign body in airway
- Suspect small round foreign body in right main stem area. Patient denies h/o chewing or swallowing on any coin or metallic object
- Plan for inspection bronchoscopy later today with the goal to remove foreign body. Explained patient the risks of the procedure including possibility of inability to remove the object and need for additional care, which may include transfer to
higher level of care with availability of Cryoprobe if the object is impacted. Patient ate breakfast at 8 AM this morning, placed order for n.p.o.
- Continue IV steroids, add Duoneb
#2. Acute hypoxic respiratory failure with acute exacerbation of COPD
- Currently mild wheezing in exam, suggestive of COPD exacerbation vs related to foreign body
- Add Duoneb qid scheduled, continue IV Steroids
- No infiltrates noted, not suggestive of pneumonia
- Will pursue BAL with bronchoscopy
- Patient has more than 68-pgtj-aegm smoking history, needs pulmonary function testing including spirometry, diffusion capacity assessment, lung volumes as well as 6-minute walk test as outpatient
- Recommend follow-up with pulmonary clinic as outpatient, information added to discharge section
- Supplemental O2 as needed
#3. H/o Smoking
- >60 pack years smoking history, continues to smoke
- Likely has advanced underlying COPD, needs PFTs as out patient
- Patient also qualifies for LDCT for lung cancer screening, will leave information in the discharge section for out patient follow up.
Other medical diagnoses:
- BPH with urinary retention, urology service on case
- Anxiety/depression
- Prior history of alcohol use disorder
- Peripheral neuropathy
- Coronary artery disease, history of myocardial infarction
- Prior history of suicidal behavior
Total time spent on this consultation/encounter __65__ minutes which includes review of history, physical exam, medications, laboratory data, personal review of imaging, extensive review of outpatient records, discussion with care team and
respiratory therapy.
Data:
CXR 08/2025: Radiopaque foreign body is seen in the medial aspect of the right mid to lower lung. This likely represents foreign body within the bronchus intermedius. It is located more laterally and anteriorly than would be expected for an
esophageal foreign body.
The lungs appear clear. Cardiac silhouette and vascular markings appear within normal limits.
ECHO 05/2018: Estimated ejection fraction is 55-60%. No regional wall motion abnormalities
are seen. Normal diastolic function.
Normal right ventricular size and function.
Mild to moderate, eccentric (posteriorly directed) mitral regurgitation.
Probably trileaflet aortic valve. Aortic valve opens normally.
Mild tricuspid regurgitation. Estimated pulmonary artery pressure of 20-25
mmHg.
--- NOTE | 2025-09-09 11:11 | WOUNDNOTE ---
[facility] RN NOTE: Reviewed chart and met with patient. Patient reports sitting in wet brief for long periods of time during the night. Upon assessment MASD is noted in his gluteal cleft. Wounds were cleaned with saline and Calazime and silicone border
foam applied. Reviewed good skin management when wearing brief (i.e changing more frequently and using barrier ointment). Patient verbalized understanding of instruction. Patient demonstrates good ability to turn in bed and ambulates with walker.
Heels intact. Air cushion in chair. Patient reports poor appetite since recently passed. Orders confirmed and discharge and care plan updated. Will follow as needed.
[2025-09-09] MEDS: ROXICODONE 2.5 MG PO ×2 (11:32→22:24)
--- NOTE | 2025-09-09 12:38 | CONS.URO ---
Consultation
-
Date/Time Consultation Performed: 0800 09/09
Performing Provider: Lennyfer
Reason for Consultation: Retention
Medical History
History of Present Illness
&4M with history of BPH and prior episode of acute urinary retention around the time of hospitalization this year
Prior history of TURP and is followed by his urologist in [place]
After last episode of retention he was supposed to follow up there for a trial of void, but removed the linder himself
He has had some worsening voiding symptoms over past several months
Now admitted for syncopal episode at home
On eval he was found to be in retention with 1500cc in bladder and a linder was placed
Urology consulted for recommendations
Past Medical History
Past Medical History: Other (BPH status post TURP, history of urinary retention, CAD, COPD, orthostatic hypotension, anxiety/depression, peripheral neuropathy, former alcohol use disorder, active smoker)
Past Surgical History: Other (TURP)
Social History
Tobacco: Non-smoker
Family History
Family History: Reviewed & Not Pertinent
Allergies/Home Medications
Allergies
Allergy/AdvReac Type Severity Reaction Status Date / Time
clopidogrel bisulfate (From AdvReac Intermediate upper GI Verified 06/04/18 11:03
Plavix) bleed
Home Medications
�Medication �Instructions �Recorded �Confirmed �Type
albuterol 90 mcg PRN SOB 09/09/25 History
aspirin 81 mg capsule 81 mg PO DAILY Blood Clot 09/09/25 09/09/25 History
Prevention/Tx
atorvastatin 20 mg tablet 20 mg PO DAILY High Cholesterol 09/09/25 09/09/25 History
buprenorphine 8 mg-naloxone 2 mg 1.5 tab sublingual DAILY Pain 09/09/25 09/09/25 History
sublingual tablet
clonazepam 0.5 mg tablet 0.5 mg PO HS 09/09/25 09/09/25 History
clonazepam 1 mg tablet 1 mg PO TID Mental Health/Anxiety 09/09/25 09/09/25 History
cyclobenzaprine 10 mg tablet 10 mg PO BID PRN muscle spasms 09/09/25 09/09/25 History
doxepin 50 mg capsule 50 mg PO HS Mental Health/Anxiety 09/09/25 09/09/25 History
duloxetine 30 mg capsule,delayed 30 mg PO DAILY Depression 09/09/25 09/09/25 History
release sprinkle
duloxetine 40 mg capsule,delayed 40 mg PO HS Depression 09/09/25 09/09/25 History
release
fluticasone furoate 100 1 inh inhalation DAILY 09/09/25 09/09/25 History
mcg-vilanterol 25 mcg/dose Lung/Breathing Issues
inhalation powder (Breo Ellipta)
gabapentin 300 mg capsule 300 mg PO TID Neurological 09/09/25 09/09/25 History
Condition
sbanpqqjtmwc-kseeiqwd-qfwmqc tablet 1 tab PO DAILY Supplement 09/09/25 09/09/25 History
nicotine 21 mg/24 hr daily 1 patch transdermal DAILY Smoking 09/09/25 09/09/25 History
transdermal patch Cessation
polyethylene glycol 3350 17 gram 17 g PO DAILY Constipation 09/09/25 09/09/25 History
oral powder packet (Miralax)
tamsulosin 0.4 mg capsule 0.4 mg PO DAILY Urinary Issue 09/09/25 09/09/25 History
Review of Systems
-
EENT: Denies Tearing
Physical Exam
Vital Signs
Vital Signs
Temp Pulse Resp BP Pulse Ox
98.0 F 59 18 94/52 97
09/09/25 11:03 09/09/25 11:21 09/09/25 11:21 09/09/25 11:03 09/09/25 11:21
Lab / Testing Results
Laboratory Results
09/09/25 06:11
09/09/25 06:11
Physical Exam
General: Well Developed, Well Nourished and No Apparent Distress
GI: Soft and Non Tender
Genito-urinary: No Costovertebral Tend, Clear Urine and Linder Catheter
Neuro: AO x 3
Psych: Calm and Intact Judgement
Assessment / Plan
-
75M with hx of BPH s/p TURP and recurrent urinary retention
Admitted with syncope and fall at home
Acute on chronic retention with 1500cc in bladder
- Discharge with linder catheter in place
- Tamsulosin was started but given syncope and fall would recommend stopping this if he is thought to be high risk for hypotension and syncope
- Outpatient follow up with his urologist in [place] for additional evaluation
Urology will sign off - please call with further questions
--- NOTE | 2025-09-09 14:02 | WOUNDNOTE ---
SACRUM and Gluteal Cleft
[2025-09-09] MEDS: DUONEB INH (15:56)
--- NOTE | 2025-09-09 16:25 | CM ---
Initial assessment completed. Patient is a 75-year-old male past medical history of BPH status post TURP, history of urinary retention, CAD, COPD, orthostatic hypotension, anxiety/depression, peripheral neuropathy, former alcohol use disorder,
active smoker, presenting with fall at home.
Patient resides alone in an apartment, elevator access. Independent w/ cane for ambulation, independent w/ ADLs and personal care. Patient has food delivery service, cab service for appointments.
PCP: Tre Cosme
Pharmacy: [facility]
Therapy rec SNF at d/c
Plan: SNF recommended
[2025-09-09] MEDS: MELATONIN 5 MG PO (22:24)
[2025-09-10] VITALS (7 sets, daily range): BP systolic 101–143; BP diastolic 50–73; PULSE 66–74
[2025-09-10 07:04] LABS: Hematocrit 32.6 % (39.0-52.0); Hemoglobin 9.6 g/dL (13.0-18.0); Mean Corp Hgb Conc. 29.4 g/dL (33.0-37.0); Mean Corpuscular Volume 93.4 fL (80.0-94.0); Platelet Count 164 10^3/uL (130-400); Red Cell Dist. Width 19.7 % (11.5-14.5)
[2025-09-10] MEDS: DUONEB 3 ML INH ×4 (07:19→19:29)
[2025-09-10 07:21] LABS: Blood Urea Nitrogen 13 mg/dl (9-20); Calcium 8.2 mg/dl (8.4-10.2); Carbon Dioxide 30 mmol/L (22-30); Chloride 102 mmol/L (98-107); Estimated Creatinine Clearance 88 ml/min; Glucose 118 mg/dl (70-99); Magnesium 1.9 mg/dl (1.6-2.3); Potassium 4.4 mmol/L (3.5-5.1); Sodium 133 mmol/L (135-145); eGFR > 60.00
--- NOTE | 2025-09-10 07:56 | W.PN.HOSP.TC ---
Today's Communication/Plan
-
discharge planning SNF rehab
wean O2 supplementation as tolerated
Psych eval
PT/OT
steroids bronchodilators
Assessment / Plan
Assessment / Plan
Physical Exam
General: No acute distress, appears relatively comfortable at this time.
HEENT: NormoCephalic, Moist mucous membranes and Atraumatic
Respiratory: clear to auscultation b/l
Cardiac: S1/S2 and Regular Rhythm; No Murmur or Rub
GI: Soft, Non Tender, Non Distended and Normal Bowel Sounds; No Organomegaly
Musculoskeletal: No Clubbing, No Cyanosis and No Edema
Skin: No Rash
Neuro: AOx3 conversant coherent
Psych: Calm
75M BPH TURP CAD COPD Orthostatic hypotension Anxiety/Depression Neuropathy Chronic Pain on Suboxone Former ETOH abuse current Tobacco here for evaluation fall found to be hypoxic requiring oxygen supplementation 3L and retaining urine requiring
Uribe placement. CXR would note right middle lobe foreign body determined to be a Dime following removal via bronchoscopy by Pulm. Patient denies any recollection of aspirating coin.
# Acute hypoxemia likely 2/2 Dime aspiration possible associate COPD exacerbation
-Pulm eval appreciated s/p bronchoscopy foreign body removal 09/09
-DuoNebs every 6 hours
-Dexamethasone 4 mg every 12
# Falls likely secondary to orthostatic hypotension
# History of orthostatic hypotension
- IV fluids given
-Monitor Orthostatic vitals
- PT OT appreciated SNF rehab
# Urinary retention secondary to BPH
# History of BPH status post TURP
-Bladder scan revealed 1500 cc
- Uribe catheter placed
-Urology Eval appreciated Flomax discontinued given risk of falls, outpt follow up with his urologist at [place] recommended.
#CAD
-cont asa statin
Anxiety/depression/Insomnia
Neuropathy, Chronic pain
Polypharmacy
-cont tid klonopin
-cont gabapentin
-duloxetine reduced to 30 mg HS
-hold bedtime klonopin due to concerns polypharmacy contributing to fall as above
-Doxepin resumed at reduced dose 25 mg HS
-patient reports tapering off suboxone, occasionally takes as needed for pain.
-scheduled buprenorphine discontinued
-significant concern polypharmacy contributing to cognitive impairment, appears improved on reduced regimen as above, however patient has no memory aspirating dime as above or how he came to hospital.
-Psych eval requested
Gluteal Cleft MASD
-wound care eval appreciated
-Tylenol PRN mild pain, Oxycodone 2.5 mg prn mod severe pain
Active smoker
- Nicotine patch
DNR/DNI
DVT prophylaxis�heparin
Regular diet
I spent a total of 45 minutes with the patient or on the floor. More than 50% of this time involved counseling and coordination of care.
Anticipated Discharge: 24 - 48 hours
Subjective/Interval History
-
Date of Service: September 10, 2025
No acute distress, sitting up comfortably in chair. Overall reports improvement in symptoms. Weaning down on oxygen supplementation.
Objective Data
-
Labs:
Laboratory Results
09/10/25
06:31
WBC 10.7
Hgb 9.6 L
Hct 32.6 L
Plt Count 164
Sodium 133 L
Potassium 4.4
Chloride 102
Carbon Dioxide 30
BUN 13
Creatinine 0.7
Glucose 118 H
Calcium 8.2 L
Vital Signs:
Vital Signs
Temp Pulse Resp BP Pulse Ox
98.4 F 58 18 125/60 95
09/10/25 03:38 09/10/25 07:20 09/10/25 07:20 09/10/25 03:38 09/10/25 07:20
I&O
09/09/25 09/10/25 09/11/25
06:59 06:59 06:59
Intake Total 1180 / 1180 690 / 690
Output Total 3400 / 3400 2790 / 2790
Balance -2219 / -2219 -2099 / -2099
[2025-09-10] MEDS: SUBUTEX 4 MG SL (09:38)
[2025-09-10] MEDS: CYMBALTA DELAYED RELEASE 30 MG PO (09:39)
[2025-09-10] MEDS: NEURONTIN 300 MG PO ×3 (09:39→20:59)
[2025-09-10] MEDS: KLONOPIN 1 MG PO ×3 (09:40→20:58)
[2025-09-10] MEDS: ASPIR LOW (ENTERIC COATED) 81 MG PO (09:40)
[2025-09-10] MEDS: LIPITOR 20 MG PO (09:40)
[2025-09-10] MEDS: DECADRON 4 MG IV ×2 (09:40→20:58)
[2025-09-10] MEDS: THERAGRAN 1 TABLET PO (09:40)
[2025-09-10] MEDS: HEPARIN 5000 UNITS SC ×2 (09:41→20:59)
[2025-09-10] MEDS: NICODERM TRANSDERMAL 14 MG TRANSDERM (09:42)
--- NOTE | 2025-09-10 09:53 | PTCARENOTE ---
pt aox3, forgetful. pt denies sob, 02 1.5l, states that he gets dizzy when standing, orthos being checked per md order, linder in place with yellow urine, oob to chair for meals, call strange in reach
[2025-09-10] MEDS: NSS 1000 IV (10:07)
--- NOTE | 2025-09-10 15:09 | CM ---
CM reviewed chart, patient seen bedside.
Patient obtained emergency contact for patient- son, Jun Ivan [phone].
Patient reports his son is only available after 5:00 p.m. or on the weekends.
Patient very upset as passed three weeks ago, family has not been in to visit him.
Patient agreeable for SNF- aware facilities limited due to insurance- reports insurance switching to [place] [phone] in October.
Psych in to meet with patient.
CM will continue to follow for all d/c planning needs.
Plan; SNF, referrals placed. Will need [employer] auth.
--- NOTE | 2025-09-10 15:57 | W.PN.UPDATE ---
Update Note
Progress Note Update
Psychiatric evaluation dictated.
Patient las very long psychiatric history reporting 30+ inpatient hospitalizations including several overdoses with stays in ICU and having cut his wrists several times. He has history of alcoholism but reports he is sober for many years; still a
smoker. of 54 years only 3 weeks ago.
Interestingly it was found he inhaled a dime which was removed bronchoscopically; he does not remember inhaling it but denies it being a suicide attempt. He is seeing an OP psychiatrist and is on cocktail of psychotropic meds. Cymbalta was decreased
to 30 mg daily from 70 mg and doxepin to 25 mg hs from 50. He is concerned about the reduction but his sodium level is slightly low at 133.
Given the severity of past history I would continue current treatment as he seems stable.
Will follow up in hospital.
--- NOTE | 2025-09-10 16:29 | W.PN.PUL3 ---
Today's Communication / Plan
-
Dime removed during bronchoscopy yesterday
He continues to smoke - -> continue nicotine patch
Outpatient PFTs and 6MWT recommended - -> office follow up will be arranged
Wean steroids - -> tomorrow will start prednisone 40mg daily and reduce by 10mg every 4th day until off
DuoNebs QID
DC home on Breo ellipta
Monitor off ABx
Follow up RLL BAL
Pulmonary service will now sign off. Please call back with any questions or concerns.
Assessment
-
#1. Foreign body in airway (dime)
- Small round foreign body in right main stem/BI area per imaging with CXR.
- Pt. underwent bronchoscopy yesterday and a dime was removed from bronchus intermedius with mucoid impaction. Patient denies h/o chewing or swallowing on any coin or metallic object
- Follow up RLL BAL (Cx shows NGTD)
- Monitor off ABx
- Continue IV steroids, Duoneb
#2. Acute hypoxic respiratory failure with acute exacerbation of COPD
- On 09/09 he was wheezing in exam, this is now resolved. Wheezing is suggestive of COPD exacerbation vs related to foreign body
- Added Duoneb qid scheduled, continue IV Steroids
- Continue to wean steroids as he clinically improves - -> tomorrow will start prednisone 40mg daily and reduce by 10mg every 4th day until off
- Given his Hx of eosinophilia (1000 in February 2017; 500 in November 2024), believe that he is benefiting from a LABA/ICS. If he continues to be SOB, however, then would need triple inhaler therapy
- No infiltrates noted, not suggestive of pneumonia
- Patient has more than 71-dghj-bamj smoking history and continues to smoke; needs pulmonary function testing including spirometry, diffusion capacity assessment, lung volumes as well as 6-minute walk test as outpatient
- Recommend follow-up with pulmonary clinic as outpatient, information added to discharge section
- Supplemental O2 as needed to keep SpO2 >90%
#3. H/o Smoking
- >60 pack years smoking history, continues to smoke
- Likely has advanced underlying COPD, needs PFTs as outpatient
- Patient also qualifies for LDCT for lung cancer screening, will leave information in the discharge section for out patient follow up.
Other medical diagnoses:
- BPH with urinary retention, urology service on case
- Anxiety/depression
- Prior history of alcohol use disorder
- Peripheral neuropathy
- Coronary artery disease, history of myocardial infarction
- Prior history of suicidal behavior
Pulmonary service will now sign off. Outpatient office follow-up will be arranged. Thank you for allowing us to be involved in the care of this patient. Please call back with any questions or concerns.
Patient was seen and evaluated on 09/10/2025. Total time spent today was 38 minute for this encounter. Time includes reviewing laboratory tests/imaging results, reviewing pertinent medical records, obtaining and reviewing medical history,
performing an appropriate physical exam, ordering medications, tests and procedures. Time also includes documentation of this encounter, coordinating patient care and communicating with other healthcare professionals. Total time does not include
separately billed tests or procedures performed on this date of service.
Data:
CXR 08/2025: Radiopaque foreign body is seen in the medial aspect of the right mid to lower lung. This likely represents foreign body within the bronchus intermedius. It is located more laterally and anteriorly than would be expected for an
esophageal foreign body.
The lungs appear clear. Cardiac silhouette and vascular markings appear within normal limits.
ECHO 05/2018: Estimated ejection fraction is 55-60%. No regional wall motion abnormalities
are seen. Normal diastolic function.
Normal right ventricular size and function.
Mild to moderate, eccentric (posteriorly directed) mitral regurgitation.
Probably trileaflet aortic valve. Aortic valve opens normally.
Mild tricuspid regurgitation. Estimated pulmonary artery pressure of 20-25
mmHg.
Subjective Data
-
Date of Service:
Date of Service: September 10, 2025
Chief Complaint: Pulmonary Follow Up
Subjective:
Patient seen and evaluated this afternoon at bedside (late note entry). Currently denies shortness of breath. Continues to smoke at least 1 PPD. Currently on to 2 L/min and breathing comfortably.
Review of Systems
General: Other (Negative unless mentioned above)
Objective Data
Data Reviewed
Vital Signs / I&O / Oxygen:
Vital Signs
Temp Pulse Resp BP Pulse Ox
97.6 F 58 18 134/65 95
09/10/25 07:17 09/10/25 07:20 09/10/25 07:20 09/10/25 07:17 09/10/25 07:20
Intake and Output
09/09/25 09/10/25 09/11/25
06:59 06:59 06:59
Intake Total 1180 / 1180 690 / 690
Output Total 3400 / 3400 2790 / 2790 1850 / 1850
Balance -2220 / -2220 -2100 / -2100 -1850 / -1850
SaO2 95
Nasal Cannula flow liters per 3
minute
Physical Exam
General: Respiratory Distress (negative), Comfortable, Chills (negative) and Sweats (negative)
HEENT: Normocephalic and Anicteric
Cardiovascular: S1-S2 and Peripheral Edema (negative)
Respiratory: Wheeze (negative), Crackles (Bibasilar (L >R)), Rhonchi (negative) and Non-Labored Respirations
GI: Soft, Non Distended, Non Tender and Normal Bowel Sounds
Neurology: Awake, Alert, Oriented and Tremors (negative)
Skin: Warm, Dry, Cyanosis (negative) and Jaundice (negative)
Labs/Micro/Reports
Lab Data
09/10/25 06:31
09/10/25 06:31
Microbiology
09/09/25 03:24 Nose MRSA Screen - Final
No Methicillin Resistant Staphylococcus aureus isolated.
09/09/25 15:25 Bronch Right Lower Lobe Gram Stain - Preliminary
09/09/25 15:25 Bronch Right Lower Lobe Fungal Culture - Preliminary
Culture in progress.
Positive cultures are reported as soon as detected.
Final report to follow in four to five weeks.
[2025-09-10] MEDS: SINEQUAN 25 MG PO (20:58)
[2025-09-10] MEDS: TUMS CHEWABLE TABLET 200 MG PO (22:11)
[2025-09-11 03:44] VITALS: BP 151/72
[2025-09-11 07:03] LABS: Hematocrit 34.7 % (39.0-52.0); Hemoglobin 10.5 g/dL (13.0-18.0); Mean Corp Hgb Conc. 30.3 g/dL (33.0-37.0); Mean Corpuscular Volume 93.3 fL (80.0-94.0); Platelet Count 175 10^3/uL (130-400); Red Cell Dist. Width 19.5 % (11.5-14.5)
[2025-09-11 07:16] LABS: Blood Urea Nitrogen 13 mg/dl (9-20); Calcium 8.5 mg/dl (8.4-10.2); Carbon Dioxide 29 mmol/L (22-30); Chloride 104 mmol/L (98-107); Estimated Creatinine Clearance 103 ml/min; Glucose 105 mg/dl (70-99); Potassium 4.5 mmol/L (3.5-5.1); Sodium 137 mmol/L (135-145); eGFR > 60.00
[2025-09-11 07:25] LABS: Magnesium 1.9 mg/dl (1.6-2.3)
[2025-09-11] MEDS: DUONEB 3 ML INH ×4 (07:43→19:37)
--- NOTE | 2025-09-11 08:19 | W.PN.HOSP.TC ---
Today's Communication/Plan
-
wean O2 supplementation as tolerated
maintain Uribe
IV valium prn anxiety/agitation
discharge planning SNF rehab
Duoneb switched from scheduled to PRN
steroid taper
Scheduled Buprenorphine 8 mg daily
Assessment / Plan
Assessment / Plan
Physical Exam
General: No acute distress, appears relatively comfortable at this time.
HEENT: NormoCephalic, Moist mucous membranes and Atraumatic
Respiratory: clear to auscultation b/l
Cardiac: S1/S2 and Regular Rhythm; No Murmur or Rub
GI: Soft, Non Tender, Non Distended and Normal Bowel Sounds; No Organomegaly
Musculoskeletal: No Clubbing, No Cyanosis and No Edema
Skin: No Rash
Neuro: AOx3 conversant coherent
Psych: Calm
75M BPH TURP CAD COPD Orthostatic hypotension Anxiety/Depression Neuropathy Chronic Pain on Suboxone Former ETOH abuse current Tobacco here for evaluation fall found to be hypoxic requiring oxygen supplementation 3L and retaining urine requiring
Uribe placement. CXR would note right middle lobe foreign body determined to be a Dime following removal via bronchoscopy by Pulm. Patient denies any recollection of aspirating coin.
# Acute hypoxemia likely 2/2 Dime aspiration possible associate COPD exacerbation
-Pulm eval appreciated s/p bronchoscopy foreign body removal 09/09
-DuoNebs every 6 hours switched to PRN
-Dexamethasone tapered to Prednisone 40 mg to be reduced by 10 mg every 4th day till off as per pulm
# Falls likely secondary to orthostatic hypotension
# History of orthostatic hypotension
-IV fluids given
-Monitor Orthostatic vitals
-PT OT appreciated SNF rehab
# Urinary retention secondary to BPH
# History of BPH status post TURP
-Bladder scan revealed 1500 cc
- Uribe catheter placed
-Urology Eval appreciated Flomax discontinued given risk of falls, outpt follow up with his urologist at [facility] recommended, discharge with Uribe recommended.
#CAD
-cont asa statin
Anxiety/depression/Insomnia
Neuropathy, Chronic pain
Polypharmacy
-cont tid Klonopin, IV valium prn agitation/anxiety/panic attack (required a dose 09/11 due to panic over passing of his )
-cont gabapentin
-duloxetine reduced to 30 mg HS
-hold bedtime klonopin due to concerns polypharmacy contributing to fall as above
-Doxepin resumed at reduced dose 25 mg HS
-patient reports tapering off Suboxone, occasionally takes as needed for pain, unclear how much or how often patient uses at home, cont w/ scheduled 8 mg buprenorphine daily for now.
-significant concern polypharmacy contributing to cognitive impairment, appears improved on reduced regimen as above, however patient has no memory aspirating dime as above or how he came to hospital.
-Psych eval appreciated
Gluteal Cleft MASD
-wound care eval appreciated
-Tylenol PRN mild pain, Oxycodone 2.5 mg prn mod severe pain
Active smoker
- Nicotine patch
DNR/DNI
DVT prophylaxis�heparin
Regular diet
Discussed with patient and patient's son also named Jun [phone]
I spent a total of 45 minutes with the patient or on the floor. More than 50% of this time involved counseling and coordination of care.
Anticipated Discharge: 24 - 48 hours
Subjective/Interval History
-
Date of Service: September 11, 2025
patient panicking reporting need to be home with 's 'things.' Eventually calmed down after prn valium, early dose Klonopin, and much verbal redirection. Assisted patient with his cellphone to look at pictures of his - which also helped
significantly..
Objective Data
-
Labs:
Laboratory Results
09/11/25
06:34
WBC 8.4
Hgb 10.5 L
Hct 34.7 L
Plt Count 175
Sodium 137
Potassium 4.5
Chloride 104
Carbon Dioxide 29
BUN 13
Creatinine 0.5 L
Glucose 105 H
Calcium 8.5
Vital Signs:
Vital Signs
Temp Pulse Resp BP Pulse Ox
98.3 F 62 16 151/72 97
09/11/25 03:44 09/11/25 07:46 09/11/25 07:46 09/11/25 03:44 09/11/25 07:46
I&O
09/10/25 09/11/25 09/12/25
06:59 06:59 06:59
Intake Total 690 / 690 1140 / 1140
Output Total 2790 / 2790 3990 / 3990 3250 / 3250
Balance -2100 / -2100 -2850 / -2850 -3250 / -3250
[2025-09-11 08:29] VITALS: BP 155/90; BP 174/90; PULSE 88; PULSE 95
[2025-09-11] MEDS: LIPITOR 20 MG PO (08:33)
[2025-09-11] MEDS: ASPIR LOW (ENTERIC COATED) 81 MG PO (08:33)
[2025-09-11] MEDS: DELTASONE 40 MG PO (08:33)
[2025-09-11] MEDS: NEURONTIN 300 MG PO ×3 (08:34→21:02)
[2025-09-11] MEDS: THERAGRAN 1 TABLET PO (08:34)
[2025-09-11] MEDS: KLONOPIN 1 MG PO ×3 (08:34→21:02)
[2025-09-11] MEDS: NICODERM TRANSDERMAL 14 MG TRANSDERM (08:34)
[2025-09-11] MEDS: HEPARIN 5000 UNITS SC ×2 (08:34→20:56)
--- NOTE | 2025-09-11 10:33 | W.PN.UPDATE ---
Update Note
Progress Note Update
Patient is in good mood this AM, reports he slept well and has good appetite. Still does not recall how the coin could have lodged in his bronchus.
Denies significant anxiety; very focused on being able to continue the Klonopin 1 mg tid feeling he would relapse should it be lowered or stopped.
For now I would continue given his past history.
We will continue F/U.
[2025-09-11 11:18] VITALS: BP 120/69
[2025-09-11] MEDS: VALIUM INJECTION 5 MG IV (13:59)
--- NOTE | 2025-09-11 14:12 | PTCARENOTE ---
Pt reports feeling anxious and feelings of having a panic attack currently. Reports feelings of wanting to leave because wants to see 's stuff at the house. Hospitalist present on the floor and requested pt to get prn Valium and to give
scheduled Klonopin now (early). Patient received medication and looking at photos of family. Pt seems to have calmed down. plan of care ongoing.
[2025-09-11] MEDS: SUBUTEX 8 MG SL (14:23)
[2025-09-11 15:00] VITALS: BP 143/74
[2025-09-11 19:59] VITALS: BP 139/63
[2025-09-11] MEDS: CYMBALTA DELAYED RELEASE 30 MG PO (21:02)
[2025-09-11] MEDS: SINEQUAN 25 MG PO (21:03)
[2025-09-11 23:25] VITALS: BP 128/55
[2025-09-12 03:48] VITALS: BP 139/67
[2025-09-12 07:32] VITALS: BP 110/55; BP 111/54; BP 124/65; PULSE 60; PULSE 62; PULSE 73
[2025-09-12 08:02] LABS: Hematocrit 35.4 % (39.0-52.0); Hemoglobin 10.7 g/dL (13.0-18.0); Mean Corp Hgb Conc. 30.2 g/dL (33.0-37.0); Mean Corpuscular Volume 94.1 fL (80.0-94.0); Platelet Count 177 10^3/uL (130-400); Red Cell Dist. Width 19.3 % (11.5-14.5)
[2025-09-12] MEDS: DELTASONE 40 MG PO (08:14)
[2025-09-12] MEDS: NICODERM TRANSDERMAL 14 MG TRANSDERM (08:14)
[2025-09-12] MEDS: ASPIR LOW (ENTERIC COATED) 81 MG PO (08:14)
[2025-09-12] MEDS: LIPITOR 20 MG PO (08:15)
[2025-09-12] MEDS: KLONOPIN 1 MG PO ×3 (08:15→21:00)
[2025-09-12] MEDS: NEURONTIN 300 MG PO ×3 (08:15→21:00)
[2025-09-12] MEDS: HEPARIN 5000 UNITS SC (08:15)
[2025-09-12] MEDS: THERAGRAN 1 TABLET PO (08:15)
[2025-09-12] MEDS: SUBUTEX 8 MG SL (08:15)
[2025-09-12 09:07] LABS: Blood Urea Nitrogen 16 mg/dl (9-20); Calcium 8.7 mg/dl (8.4-10.2); Carbon Dioxide 31 mmol/L (22-30); Chloride 101 mmol/L (98-107); Estimated Creatinine Clearance 88 ml/min; Glucose 79 mg/dl (70-99); Magnesium 1.8 mg/dl (1.6-2.3); Potassium 3.9 mmol/L (3.5-5.1); Sodium 135 mmol/L (135-145); eGFR > 60.00
[2025-09-12 10:02] VITALS: BP 108/60; O2SAT 95
[2025-09-12 11:29] VITALS: BP 106/51
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
[2025-09-12 15:49] VITALS: BP 128/58
[2025-09-12 15:57] LABS: Iron 39 ug/dl (49-181)
[2025-09-12 16:06] LABS: Total Iron Binding Capacity 360 ug/dl (261-462)
--- NOTE | 2025-09-12 16:08 | W.PN.HOSP.TC ---
Today's Communication/Plan
-
Stable for discharge to rehab
Assessment / Plan
Assessment / Plan
75-year-old with a fall. Patient was found to be hypoxic requiring 3 L of oxygen and urinary retention also.
Head CT-no acute changes
CVS: S1-S2 normal
Chest: CTA B/L
Abdomen: Soft, NT , Bowel sounds present
Extremities: No edema, normal pulses
# Acute hypoxic respiratory failure likely secondary to aspiration and COPD exacerbation
Status post bronchoscopy and foreign body (Dime) removal on 09/09/2025 from the right middle lobe
DuoNebs every 6 hours and as needed
Continue Breo Ellipta or equivalent upon discharge
Dexamethasone taper
Wean oxygen as tolerated
# Falls likely secondary to orthostatic hypotension
# Urine retention likely secondary to enlarged prostate
History of TURP bladder scan here showed 1500 cc of urine
Uribe catheter placed.
Flomax discontinued given falls. Outpatient urology follow-up with [facility] recommended and discharged with Uribe
# Coronary disease-history of cardiac stents in 2001 and 2003 continue aspirin and statin
# Valvular heart disease-mild to moderate mitral regurgitation, mild tricuspid regurgitation
# Anemia-check iron studies
# Hyponatremia-resolved
# Peripheral neuropathy NOS-continue gabapentin
# Hyperlipidemia-continue statin
# Anxiety/depression/insomnia-3 times daily Klonopin. Holding bedtime dose of Klonopin
IV Valium-required a dose on 09/11 due to passing of his (3 weeks ago)- Now stopped
Continue duloxetine
Continue doxepin 25 mg at bedtime
Patient reported tapering off of Suboxone occasionally takes for pain-unclear how often he was using it at home. Continue scheduled 8 mg buprenorphine for now
Likely has cognitive impairment-no recollection of aspiration
Psychiatric valuation appreciated
Patient has history of suicidal attempt in the past
# Gluteal area MASD-wound care
# History of alcohol use disorder in the past
# History of hepatitis C
# Active smoker-nicotine patch-cessation counseling
# DVT prophylaxis-Lovenox
# DNR
D/W Son
D/W Case management re Discharge
Part of this note was created using voice recognition system. Occasional wrong word or��sound alike� substitutions may have inadvertently occurred due to the inherent limitations of voice recognition software. If noted kindly bring it to my
attention for correction.
Anticipated Discharge: Within 24 hours
Subjective/Interval History
-
Date of Service: September 12, 2025
Objective Data
-
Labs:
Laboratory Results
09/12/25
06:44
WBC 9.3
Hgb 10.7 L
Hct 35.4 L
Plt Count 177
Sodium 135
Potassium 3.9
Chloride 101
Carbon Dioxide 31 H
BUN 16
Creatinine 0.7
Glucose 79
Calcium 8.7
Vital Signs:
Vital Signs
Temp Pulse Resp BP Pulse Ox
98.1 F 66 20 128/58 95
09/12/25 15:49 09/12/25 15:49 09/12/25 15:49 09/12/25 15:49 09/12/25 15:49
I&O
09/11/25 09/12/25 09/13/25
06:59 06:59 06:59
Intake Total 1140 / 1140 1320 / 1320
Output Total 3990 / 3990 9900 / 9900
Balance -2850 / -2850 -8580 / -8580
[2025-09-12 16:33] LABS: Ferritin 15.4 ng/ml (17.9-464.0)
[2025-09-12 16:47] LABS: Vitamin B12 > 1000 pg/ml (239-931)
[2025-09-12] MEDS: LOVENOX 40 MG SC (18:12)
[2025-09-12] MEDS: CYMBALTA DELAYED RELEASE 30 MG PO (21:00)
[2025-09-12] MEDS: SINEQUAN 25 MG PO (21:00)
[2025-09-12 23:00] VITALS: BP 136/74
[2025-09-13 07:00] VITALS: BP 95/57
[2025-09-13 07:56] LABS: Hematocrit 37.8 % (39.0-52.0); Hemoglobin 11.5 g/dL (13.0-18.0); Mean Corp Hgb Conc. 30.4 g/dL (33.0-37.0); Mean Corpuscular Volume 91.3 fL (80.0-94.0); Platelet Count 196 10^3/uL (130-400); Red Cell Dist. Width 19.4 % (11.5-14.5)
[2025-09-13] MEDS: SUBUTEX 8 MG SL (08:09)
[2025-09-13] MEDS: ASPIR LOW (ENTERIC COATED) 81 MG PO (08:10)
[2025-09-13] MEDS: LIPITOR 20 MG PO (08:10)
[2025-09-13] MEDS: THERAGRAN 1 TABLET PO (08:10)
[2025-09-13] MEDS: NEURONTIN 300 MG PO ×3 (08:10→21:28)
[2025-09-13] MEDS: KLONOPIN 1 MG PO ×3 (08:11→21:29)
[2025-09-13] MEDS: NICODERM TRANSDERMAL 14 MG TRANSDERM (08:11)
[2025-09-13 08:18] LABS: Blood Urea Nitrogen 18 mg/dl (9-20); Calcium 8.5 mg/dl (8.4-10.2); Carbon Dioxide 32 mmol/L (22-30); Chloride 100 mmol/L (98-107); Estimated Creatinine Clearance 103 ml/min; Glucose 85 mg/dl (70-99); Magnesium 1.8 mg/dl (1.6-2.3); Potassium 4.5 mmol/L (3.5-5.1); Sodium 132 mmol/L (135-145); eGFR > 60.00
[2025-09-13] MEDS: DELTASONE 40 MG PO (08:32)
--- NOTE | 2025-09-13 09:42 | CM ---
Addendum entered by Moira Omer 09/13/25 12:00:
CM called [facility] to initiate auth. Requesting clinicals faxed to [phone] for review
Pending ref # [id number]
Original Note:
Chart reviewed. Plan is for patient to d/c to SNF
[facility] accepted, discussed w/ [facility]/admissions, confirmed physician can prescribe patient Suboxone
TT OT to see patient for auth initiation
Updated patient bedside, continue to be agreeable to SNF. Cont supplemental O2, wean as tolerated
Plan: [facility]
[2025-09-13 11:25] VITALS: BP 106/56; BP 91/57; PULSE 69; O2SAT 88
--- NOTE | 2025-09-13 11:54 | W.PN.HOSP.TC ---
Today's Communication/Plan
-
Medically stable for discharge
Assessment / Plan
Assessment / Plan
75-year-old with a fall. Patient was found to be hypoxic requiring 3 L of oxygen and urinary retention also.
Head CT-no acute changes
CVS: S1-S2 normal
Chest: few scattered Wheezes.
Abdomen: Soft, NT , Bowel sounds present
Extremities: No edema, normal pulses
# Acute hypoxic respiratory failure likely secondary to aspiration and COPD exacerbation
Status post bronchoscopy and foreign body (Dime) removal on 09/09/2025 from the right middle lobe
DuoNebs every 6 hours and as needed
Continue Breo Ellipta or equivalent upon discharge
Steroid taper
Off O2
# Falls likely secondary to orthostatic hypotension
# Urine retention likely secondary to enlarged prostate
History of TURP bladder scan here showed 1500 cc of urine
Uribe catheter placed.
Flomax discontinued given falls. Outpatient urology follow-up with [facility] recommended and discharged with Uribe
# Coronary disease-history of cardiac stents in 2001 and 2003 continue aspirin and statin
# Valvular heart disease-mild to moderate mitral regurgitation, mild tricuspid regurgitation
# Anemia-NASEEM- Add IV iron.
# Hyponatremia-resolved
# Peripheral neuropathy NOS-continue gabapentin
# Hyperlipidemia-continue statin
# Anxiety/depression/insomnia-
Holding bedtime dose of Klonopin
IV Valium-required a dose on 09/11 due to passing of his (3 weeks ago)- Now stopped
Continue duloxetine 30 mg, 3 times daily Klonopin., Continue doxepin 25 mg at bedtime
Patient reported tapering off of Suboxone occasionally takes for pain-unclear how often he was using it at home. Continue scheduled 8 mg buprenorphine for now
Likely has cognitive impairment-no recollection of aspiration
Psychiatric valuation appreciated
Patient has history of suicidal attempt in the past
# Gluteal area MASD-wound care
# History of alcohol use disorder in the past
# History of hepatitis C
# Active smoker-nicotine patch-cessation counseling
# DVT prophylaxis-Lovenox
# DNR
D/W Son yesterday
D/W Case management re Discharge
Part of this note was created using voice recognition system. Occasional wrong word or��sound alike� substitutions may have inadvertently occurred due to the inherent limitations of voice recognition software. If noted kindly bring it to my
attention for correction.
Anticipated Discharge: Today
Subjective/Interval History
-
Date of Service: September 13, 2025
Objective Data
-
Labs:
Laboratory Results
09/13/25
07:38
WBC 12.2 H
Hgb 11.5 L
Hct 37.8 L
Plt Count 196
Sodium 132 L
Potassium 4.5
Chloride 100
Carbon Dioxide 32 H
BUN 18
Creatinine 0.6 L
Glucose 85
Calcium 8.5
Vital Signs:
Vital Signs
Temp Pulse Resp BP Pulse Ox
97.6 F 60 18 95/57 95
09/13/25 07:00 09/13/25 07:00 09/13/25 07:00 09/13/25 07:00 09/13/25 07:00
I&O
09/12/25 09/13/25 09/14/25
06:59 06:59 06:59
Intake Total 1320 / 1320 2820 / 2820
Output Total 9900 / 9900 4500 / 4500 50 / 50
Balance -8580 / -8580 -1680 / -1680 -50 / -50
--- NOTE | 2025-09-13 13:44 | W.PN.UPDATE ---
Update Note
Progress Note Update
patient seen chart reviewed. discussed with nursing. mr parry was able to talk about current situation...the loss of his , his worries about clearing up his disability issue, his possible transfer to snf. he was particularly concerned about
which snf he will be referred to. said he has had experiences with different some + some a waste of time and he is not interested in going to the ones who exist simply to make money. he said he feels he can go home safely. he has friends and family
who are supportive. he also may be a candidate for PT in the home which [employer] is more likely to pay for. re snf, i checked with cm and he has [employer] which limits his choices. he informed me that as of oct 27 he will have [employer] [facility] as he had
been unhappy with [employer]. we also talked about the issue of getting him a new rep payee or him taking care of his own disability payments. i feel he is capable of handling his own finances. i told him he should call and get the from which he
will need to have signed by his doctor attesting to his capacity to handle his own finances . he can call me (i gave him my number here at ) if he needs help. (it is my impression that he will be dc today or tomorrow. he should be dc on current
med. i would give him a one week supply of klonopin and his other meds as follows gabapentin 300 mg tid cymbalta 30 mg qd doxepin 25 mg q hs and buprenorphine 8 mg daily. patient does seem to be coping with the of his but obviously this
does not happen in three or four weeks. he says he has several friends who are widows or widowers and they have formed a support group informally.
[2025-09-13] MEDS: FERRLECIT 110 MG IV (13:52)
[2025-09-13 14:57] VITALS: BP 112/55
[2025-09-13] MEDS: LOVENOX 40 MG SC (18:23)
[2025-09-13] MEDS: SINEQUAN 25 MG PO (21:28)
[2025-09-13] MEDS: CYMBALTA DELAYED RELEASE 30 MG PO (21:29)
[2025-09-13 22:59] VITALS: BP 102/51
--- NOTE | 2025-09-14 04:21 | DOWNTIME ---
There was a [employer] Client Capacity Analyst Downtime on 09/14/2025 from 0100 to 09/14/2025 at 0255. Downtime documentation of patient's care, including medication administrations, has been reconciled in the electronic record per guidelines. Refer to the
patient's paper chart under the miscellaneous tab to see printed paper medication records and downtime forms.
[2025-09-14] MEDS: ASPIR LOW (ENTERIC COATED) 81 MG PO (07:18)
[2025-09-14] MEDS: NEURONTIN 300 MG PO ×2 (07:18→16:24)
[2025-09-14] MEDS: LIPITOR 20 MG PO (07:19)
[2025-09-14] MEDS: THERAGRAN 1 TABLET PO (07:19)
[2025-09-14] MEDS: KLONOPIN 1 MG PO ×2 (07:20→16:24)
[2025-09-14] MEDS: SUBUTEX 8 MG SL (07:20)
[2025-09-14] MEDS: NICODERM TRANSDERMAL 14 MG TRANSDERM (07:20)
[2025-09-14 07:25] VITALS: BP 117/63
[2025-09-14] MEDS: DELTASONE 30 MG PO (09:08)
[2025-09-14] MEDS: MUCINEX 600 MG PO (09:08)
--- NOTE | 2025-09-14 09:27 | CM ---
CM received approved auth from [facility]. Start date 09/13 NRD 09/15
Approved auth # [id number]
Updated hospitalist, patient stable for discharge today
Updated [facility] admissions, with auth info
Patient updated bedside. IMM verbally reviewed, copy provided, copy on chart
Patient possibly can transport via w/c van
[facility]
Report: [phone]

Plan: D/c to [facility] today
[2025-09-14] MEDS: FERRLECIT 110 MG IV (13:46)
--- NOTE | 2025-09-14 14:18 | W.PN.HOSP.TC ---
Today's Communication/Plan
-
Discharge
Assessment / Plan
Assessment / Plan
75-year-old with a fall. Patient was found to be hypoxic requiring 3 L of oxygen and urinary retention also.
Head CT-no acute changes
CVS: S1-S2 normal
Chest: CTA
Abdomen: Soft, NT , Bowel sounds present
Extremities: No edema, normal pulses
# Acute hypoxic respiratory failure likely secondary to aspiration and COPD exacerbation
Status post bronchoscopy and foreign body (Dime) removal on 09/09/2025 from the right middle lobe
DuoNebs every 6 hours and as needed
Continue Breo Ellipta upon discharge
Steroid taper
Off O2
# Falls likely secondary to orthostatic hypotension
# Urine retention likely secondary to enlarged prostate
History of TURP bladder scan here showed 1500 cc of urine
Uribe catheter placed.
Flomax discontinued given falls. Outpatient urology follow-up with [facility] recommended and discharge with Uribe
# Coronary disease-history of cardiac stents in 2001 and 2003 continue aspirin and statin
# Valvular heart disease-mild to moderate mitral regurgitation, mild tricuspid regurgitation
# Anemia-NASEEM- PO iron for DC
# Hyponatremia-resolved
# Peripheral neuropathy NOS-continue gabapentin
# Hyperlipidemia-continue statin
# Anxiety/depression/insomnia-
Holding bedtime dose of Klonopin
IV Valium-required a dose on 09/11 due to passing of his (3 weeks ago)- Now stopped
Continue duloxetine 30 mg, 3 times daily Klonopin., Continue doxepin 25 mg at bedtime
Patient reported tapering off of Suboxone occasionally takes for pain-unclear how often he was using it at home. Continue scheduled 8 mg buprenorphine for now
Likely has cognitive impairment-no recollection of aspiration
Psychiatric evaluation appreciated
Patient has history of suicidal attempt in the past
# Gluteal area MASD-wound care
# History of alcohol use disorder in the past
# History of hepatitis C
# Active smoker-nicotine patch-cessation counseling
# DVT prophylaxis-Lovenox
# DNR
D/W RN
D/W Case management re Discharge
Pt not very happy re SNF, But wants to go and see.
He is aware needs an Appt with pcp and Psyche as OP.
Psyche prescribes his Klonopin. He is aware needs to get script from her.
More than 30 minutes spent in discharge including
Final examination of the patient
Summarizing hospital stay
Instructions for continuing care to all relevant caregivers
Preparation of discharge records, prescriptions, and referral forms
Part of this note was created using voice recognition system. Occasional wrong word or��sound alike� substitutions may have inadvertently occurred due to the inherent limitations of voice recognition software. If noted kindly bring it to my
attention for correction.
Anticipated Discharge: Today
Subjective/Interval History
-
Date of Service: September 14, 2025
Objective Data
-
Vital Signs:
Vital Signs
Temp Pulse Resp BP Pulse Ox
98.1 F 62 12 117/63 91
09/14/25 07:25 09/14/25 07:25 09/14/25 07:25 09/14/25 07:25 09/14/25 07:25
I&O
09/13/25 09/14/25 09/15/25
06:59 06:59 06:59
Intake Total 2820 / 2820 1500 / 1500
Output Total 4500 / 4500 4300 / 4300
Balance -1680 / -1680 -2800 / -2800
--- NOTE | 2025-09-14 14:24 | W.DS.TRANS ---
Addendum entered and electronically signed by Matt Mario MD 09/14/25 16:36:
Dictation- [id number]
Original Note:
DC Summary - Cutter Machine
-
Discharge Instructions:
Discharge Diagnosis/Procedures Acute hypoxic respiratory failure secondary to
COPD exacerbation and aspiration
Falls
Urine retention status post Uribe catheter
placement
Coronary artery disease with history of stents
Valvular heart disease-mild to moderate MR, mild
TR
Iron deficiency anemia
Hyponatremia
Peripheral neuropathy
Hyperlipidemia
Anxiety/depression/insomnia
Active smoker
Diet As tolerated
Activity As tolerated
Driving Restrictions As prior to admission
Others Tests Chest x-ray 4 to 6 weeks
Other Services PT,OT
Instructions:
Stand-Alone Forms:
Changes to Home Medications: Yes
Discharge Medications:
DC Medications w/original date entered in [facility]
albuterol 90 mcg PRN SOB 09/09/25
aspirin 81 mg capsule 81 mg PO DAILY Blood Clot Prevention/Tx 09/09/25
atorvastatin 20 mg tablet 20 mg PO DAILY High Cholesterol 09/09/25
duloxetine 30 mg capsule,delayed release sprinkle 30 mg PO DAILY Depression 09/09/25
fluticasone furoate 100 mcg-vilanterol 25 mcg/dose inhalation powder (Breo Ellipta) 1 inh inhalation DAILY Lung/Breathing Issues 09/09/25
gabapentin 300 mg capsule 300 mg PO TID Neurological Condition 09/09/25
ceucomahhcat-rftwblko-wttaul tablet 1 tab PO DAILY Supplement 09/09/25
nicotine 21 mg/24 hr daily transdermal patch 1 patch transdermal DAILY Smoking Cessation 09/09/25
polyethylene glycol 3350 17 gram oral powder packet (Miralax) 17 g PO DAILY Constipation 09/09/25
acetaminophen 325 mg tablet 650 mg (2 x 325 mg) PO Q4HPRN PRN pain/fever/headache #0 tabs 09/14/25
buprenorphine HCl 8 mg sublingual tablet 8 mg sublingual DAILY pain #3 tabs 09/14/25
clonazepam 1 mg tablet 1 mg PO TID Mental Health/Anxiety #9 tabs 09/14/25
cyclobenzaprine 5 mg tablet 5 mg PO BID PRN spasm #14 tabs 09/14/25
doxepin 50 mg capsule 25 mg (1/2 x 50 mg) PO HS Mental Health/Anxiety #0 caps 09/14/25
ferrous sulfate 325 mg (65 mg iron) tablet 325 mg PO DAILY anemia #30 tabs 09/14/25
guaifenesin 600 mg tablet, extended release 12 hr 600 mg PO Q12 cough #0 tabs 09/14/25
prednisone 10 mg tablet See Rx Instructions .Route .COMPLEX Lung/breathing issues #30 tabs 09/14/25
Home Medication Changes
new
ferrous sulfate 325 mg (65 mg iron) tablet 325 mg PO DAILY anemia #30 tabs 09/14/25
guaifenesin 600 mg tablet, extended release 12 hr 600 mg PO Q12 cough #0 tabs 09/14/25
prednisone 10 mg tablet See Rx Instructions .Route .COMPLEX Lung/breathing issues #30 tabs 09/14/25
Dose change
nicotine 21 mg/24 hr daily transdermal patch 1 patch transdermal DAILY Smoking Cessation 09/09/25
polyethylene glycol 3350 17 gram oral powder packet (Miralax) 17 g PO DAILY Constipation 09/09/25
doxepin 50 mg capsule 25 mg (1/2 x 50 mg) PO HS Mental Health/Anxiety #0 caps 09/14/25
Cymbalta
Pending Results: No
[2025-09-14] MEDS: FLEXERIL 5 MG PO (14:43)
[2025-09-14 15:10] VITALS: BP 124/67
--- NOTE | 2025-09-14 16:36 | W.DS.TRANS ---
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
-
Discharge Instructions:
Discharge Diagnosis/Procedures Acute hypoxic respiratory failure secondary to
COPD exacerbation and aspiration
Falls
Urine retention status post Uribe catheter
placement
Coronary artery disease with history of stents
Valvular heart disease-mild to moderate MR, mild
TR
Iron deficiency anemia
Hyponatremia
Peripheral neuropathy
Hyperlipidemia
Anxiety/depression/insomnia
Active smoker
Diet As tolerated
Activity As tolerated
Driving Restrictions As prior to admission
Others Tests Chest x-ray 4 to 6 weeks
Other Services PT,OT
Instructions:
Stand-Alone Forms:
Changes to Home Medications: Yes
Discharge Medications:
DC Medications w/original date entered in [employer]
albuterol 90 mcg PRN SOB 09/09/25
aspirin 81 mg capsule 81 mg PO DAILY Blood Clot Prevention/Tx 09/09/25
atorvastatin 20 mg tablet 20 mg PO DAILY High Cholesterol 09/09/25
duloxetine 30 mg capsule,delayed release sprinkle 30 mg PO DAILY Depression 09/09/25
fluticasone furoate 100 mcg-vilanterol 25 mcg/dose inhalation powder (Breo Ellipta) 1 inh inhalation DAILY Lung/Breathing Issues 09/09/25
gabapentin 300 mg capsule 300 mg PO TID Neurological Condition 09/09/25
xstgamtwaijj-hbsmarvm-dcbkuw tablet 1 tab PO DAILY Supplement 09/09/25
nicotine 21 mg/24 hr daily transdermal patch 1 patch transdermal DAILY Smoking Cessation 09/09/25
polyethylene glycol 3350 17 gram oral powder packet (Miralax) 17 g PO DAILY Constipation 09/09/25
acetaminophen 325 mg tablet 650 mg (2 x 325 mg) PO Q4HPRN PRN pain/fever/headache #0 tabs 09/14/25
buprenorphine HCl 8 mg sublingual tablet 8 mg sublingual DAILY pain #3 tabs 09/14/25
clonazepam 1 mg tablet 1 mg PO TID Mental Health/Anxiety #9 tabs 09/14/25
cyclobenzaprine 5 mg tablet 5 mg PO BID PRN spasm #14 tabs 09/14/25
doxepin 50 mg capsule 25 mg (1/2 x 50 mg) PO HS Mental Health/Anxiety #0 caps 09/14/25
famotidine 20 mg tablet (Pepcid) 20 mg PO BID while on steroids #14 tabs 09/14/25
ferrous sulfate 325 mg (65 mg iron) tablet 325 mg PO DAILY anemia #30 tabs 09/14/25
guaifenesin 600 mg tablet, extended release 12 hr 600 mg PO Q12 cough #0 tabs 09/14/25
prednisone 10 mg tablet See Rx Instructions .Route .COMPLEX Lung/breathing issues #30 tabs 09/14/25
sennosides 8.6 mg tablet (senna) 8.6 mg PO BID Constipation #30 tabs 09/14/25
Home Medication Changes
new
famotidine 20 mg tablet (Pepcid) 20 mg PO BID while on steroids #14 tabs 09/14/25
ferrous sulfate 325 mg (65 mg iron) tablet 325 mg PO DAILY anemia #30 tabs 09/14/25
guaifenesin 600 mg tablet, extended release 12 hr 600 mg PO Q12 cough #0 tabs 09/14/25
prednisone 10 mg tablet See Rx Instructions .Route .COMPLEX Lung/breathing issues #30 tabs 09/14/25
sennosides 8.6 mg tablet (senna) 8.6 mg PO BID Constipation #30 tabs 09/14/25
Doxepin dose change
Pending Results: No
[2025-09-14] MEDS: CITROMA 300 ML PO (16:39)
[2025-09-14] MEDS: LOVENOX SC (18:56)
[2025-09-14 19:20] VITALS: BP 111/61
--- NOTE | 2025-09-14 22:32 | W.PN.UPDATE ---
Update Note
Progress Note Update
pt seen to discuss impending discharge. in good spirits, though states he wishes he would be going home rather than to rehab. hoping for a quick stay there. Spoke about loss of , becomes teary but able to refocus on remaining family. continuing
psychotropic agents as he has been receiving here.
== END 2025-09-14 20:43 | DRG 163 ==
LOC: 4 WEST ACU 09:55
PROVIDERS: Emergency Medicine; Internal Medicine; ADMITTING PHYSICIAN Hospitalist; ATTENDING PHYSICIAN Hospitalist; CONSULT PHYSICIAN Psychiatry & Neurology Psychiatry; CONSULT PHYSICIAN Urology; EMERGENCY PHYSICIAN Emergency Medicine; FAMILY PHYSICIAN Family Medicine; OTHER PHYSICIAN Internal Medicine
PROC: 0B9F8ZX Drainage of Right Lower Lung Lobe, Via Natural or Artificial Opening Endoscopic, Diagnostic (ICD-10-PCS; 2025-09-09)
PROC: 0BCF8ZZ Extirpation of Matter from Right Lower Lung Lobe, Via Natural or Artificial Opening Endoscopic (ICD-10-PCS; 2025-09-09)
DX: J44.1 Chronic obstructive pulmonary disease with (acute) exacerbation (principal); J96.01 Acute respiratory failure with hypoxia; E87.1 Hypo-osmolality and hyponatremia; T17.898A Other foreign object in other parts of respiratory tract causing other injury, initial encounter; F17.200 Nicotine dependence, unspecified, uncomplicated; Z91.51 Personal history of suicidal behavior; I95.1 Orthostatic hypotension; I25.10 Atherosclerotic heart disease of native coronary artery without angina pectoris; F10.10 Alcohol abuse, uncomplicated; Z66 Do not resuscitate; W44.9XXA Unspecified foreign body entering into or through a natural orifice, initial encounter; E11.40 Type 2 diabetes mellitus with diabetic neuropathy, unspecified; D50.9 Iron deficiency anemia, unspecified; F41.1 Generalized anxiety disorder; G47.00 Insomnia, unspecified; Z91.52 Personal history of nonsuicidal self-harm; Z62.810 Personal history of physical and sexual abuse in childhood; Z11.52 Encounter for screening for COVID-19
CPT/HCPCS: 51702; 51798; 70450; 71046; 80048; 80053; 81003; 81015; 82607; 82728; 82962; 83540; 83550; 83735; 83935; 84100; 84300; 84443; 84484; 85025; 85027; 85379; 87015; 87070; 87102; 87106; 87116; 87205; 87811; 93005; 94640; 96361; 96374; 97163; 97167; 97530; 97535; 99285; 99406; J2916

== ENCOUNTER 2025-10-08 16:14 | Inpatient (IN) | payer OTHER, MEDICAID, SELFPAY ==
[2025-10-08] VITALS (32 sets, daily range): BP systolic 91–198; BP diastolic 60–104; BMI 23.6
--- NOTE | 2025-10-08 14:29 | ED.GENMED ---
History of Present Illness
General
Chief Complaint: Overdose Intentional
Source: patient
Exam Limitations: none
Time Seen by Provider: 10/08/25 14:21
History of Present Illness
History of Present Illness:
See MDM
Past History
Past History
ED Past Medical History: CAD, COPD, HTN, AL (2001, 2003), Psychiatric (Depression) and Other (Hep C, GI bleeding, Cellulitis of the finger, Peripheral neuropahcy, Suicidal behavior, MRSA, Pancreatitis)
ED Past Surgical History: Appendectomy, Cardiac (PTCA with stent 1991, 1992), Tonsilectomy and Other (Hernia repair)
Social History
Tobacco: Smoker
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
Drug: Narcotics (Prescription drug abuse)
Personal:
Living: with family
Employment: Not employed
Family History
Family History: Other (Father with alcoholism and coronary disease and stroke)
Phy Exam
Physical Exam
Physical Exam:
See MDM
Course
Orders/Labs/Results
Orders:
Orders
10/08/25 14:29
EKG [Electrocardiogram (*1)] Urgent
Reason for Study: Chest Pain
10/08/25 14:53
Acetaminophen Urgent
Alcohol Urgent
Complete Blood Count/With Diff Urgent
Comprehensive Metabolic Panel Urgent
Magnesium Urgent
Salicylate Urgent
Triglycerides Routine
Comment: baseline levels with propofol infusion
10/08/25 15:09
Propofol 1,000,000 Mcg/100 ml [Diprivan] 1,000,000 mcg in 100 ml IV NOW
Indication:: Light Sedation
Begin Infusion:: Now
Goal:: RASS 0 to -2
Maximum dose in mcg/kg/min:: 50
Initial dose based on RASS:: Yes
If RASS is:: +1 or pt hemodynamically unstable (SBP < 90mmHg), initiate at 10 mcg/kg/min
If RASS is:: +2, initiate at 20 mcg/kg/min
If RASS is:: greater than or equal to +3, initiate at 30 mcg/kg/min
Titration Instructions:: Titrate by 5-10 mcg/kg/min every 5 minutes until RASS 0 to -2 achieved.
Taper Instructions:: If RASS is at or below goal for 4 consecutive hours decrease infusion by
Taper Instructions:: 5-10 mcg/kg/min every 2 hours to off.
Over-sedation Instructions:: If CPOT 0-2 (at goal) AND RASS -3 to -5 (below goal) decrease sedative by
Over-sedation Instructions:: 50% first. If pain score remains at goal and RASS remains below goal in
Over-sedation Instructions:: 1 hour, decrease opioid infusion by 50%.
Notify provider:: immediately if patient exhibits signs/symptoms of propofol-related
Notify provider:: infusion syndrome.
Additional Instructions:: Patient MUST be mechanically ventilated and MUST receive analgesia.
10/08/25 15:11
Charcoal, Activated [Actidose-Aqua] 25 grams TUBE NOW STA
Charcoal/Sorbitol Solution [Actidose with Sorbitol] 25 grams TUBE NOW STA
Propofol 1,000,000 Mcg/100 ml [Diprivan] 1,000,000 mcg in 100 ml .ROUTE .STK-MED
10/08/25 15:27
CR Chest Portable - 1 View Urgent
Comment:
Reason For Exam: intubated
Reason Study Needs to be Portable: Patient Unstable
Ventilator Initial Settings [RESP] Urgent
Tidal Volume: 500
Rate: 16
FIO2: 60
PEEP: 5
10/08/25 15:48
Admit/Transfer Patient As Directed
Co-Sign Provider:
Level of Care: Inpatient admission
Assign to:: ICU
Physician / Group: Hospitalist
Diagnosis: Medication overdose
Reason for Hospitalization: Medication overdose
Expected length of stay greater than two midnights?: Yes
ELOS- Estimated Length of Stay in days: 3
I certify the patient meets the requirements for IP care: Yes
PRN Pain Medication Management As Directed
May give lesser potent ordered pain med per pt: Yes
preference::
Protocol:: Medication orders for pain may be administered in a
manner that supports deferring to patient preference
when the pt is:
- Requesting an ordered lesser potent pain medication.
Least to most potent pain medications are defined
as: acetaminophen < NSAID < tramadol < opioids
(morphine, oxycodone, hydromorphone).
- Requesting a lesser dose of the same medication IF
ORDERED.
- Requesting a less intrusive route of administration
if both routes are prescribed by the provider (PO <
IV).
10/08/25 15:50
Code Status As Directed
Resuscitation Status: Full Code
10/08/25 16:01
Add On- LAB Urgent
Tests Added?: PT, PTT, INR, d- DIMER
10/08/25 16:07
Hourly Shift Manager Consult Urgent
Consulting Provider: Amilcar Odell
Was physician already notified: Yes
10/08/25 16:21
Urine Drug Abuse Screen Urgent
Date Specimen was Collected: 10/08/25
Time Specimen was Collected: 16:20
10/08/25 16:22
Arterial Blood Gas Routine
%Oxygen/Room Air: 96 intubated
Urinalysis Reflex To Culture Urgent
Date Specimen was Collected: 10/08/25
Time Specimen was Collected: 16:20
10/08/25 17:01
0.9% Sodium Chloride 1000 ml [Nss] 1,000 ml IV 100 mls/hr
Bisacodyl [Dulcolax] 10 mg RECTAL [id number] PRN
Docusate W/Senna [Senokot-S] 1 tablet PO BIDPRN PRN
Polyethylene Glycol Powder [Miralax] 17 grams PO DAILYPRN PRN
10/08/25 17:01
Activity As Directed
Activity Level: Out of Bed-Early Mobility
Neurological Checks As Directed
Frequency: Per unit guidelines
Pneumatic Compression Sleeves As Directed
Type: Knee high
Vital Signs As Directed
Frequency: Per unit guidelines
DX Deep Vein Thrombosis Video Routine
10/09/25 06:00
Basic Metabolic Panel IN AM
Complete Blood Count/With Diff IN AM
10/09/25 08:00
Polyethylene Glycol Powder [Miralax] 17 grams TUBE DAILY
Polyethylene Glycol Powder [Miralax] 17 grams TUBE DAILY
Abnormal Lab Results
10/08/25
14:53
WBC 12.0 H 10^3/uL
(4.8-10.8)
RBC 4.29 L 10^6/uL
(4.70-6.10)
Hgb 12.3 L g/dL
(13.0-18.0)
Hct 38.7 L %
(39.0-52.0)
MCHC 31.8 L g/dL
(33.0-37.0)
RDW 22.1 H %
(11.5-14.5)
Abs Immat Gran (auto) 1.2 H 10^3/uL
(0-0.05)
Absolute Monos (auto) 1.2 H 10^3/uL
(0.1-0.6)
Absolute Eos (auto) 0.8 H 10^3/uL
(0-0.7)
Absolute Basos (auto) 0.3 H 10^3/uL
(0-0.2)
Immature Gran % 9.6 H %
(0-0.5)
Monocytes % 9.8 H %
(1.7-9.3)
Eosinophils % 7.0 H %
(0-6)
Basophils % 2.3 H %
(0-2)
Creatinine 0.6 L mg/dL
(0.7-1.3)
Salicylates < 1.0 L mg/dl
(2.0-20.0)
Acetaminophen < 10 L ug/ml
(10-30)
10/08/25 14:53
10/08/25 14:53
Vital Signs
Initial and Last Documented VS:
Initial Vital Signs
Pulse Resp BP Pulse Ox
85 20 122/79 98
10/08/25 14:21 10/08/25 14:21 10/08/25 14:21 10/08/25 14:21
Last Documented Vital Signs
Temp Pulse Resp BP Pulse Ox
98.7 F 81 16 112/71 98
10/08/25 14:31 10/08/25 16:20 10/08/25 16:20 10/08/25 16:20 10/08/25 16:00
Procedures
Intubations
Procedure completed by: Rikki Canales DO
Method of Intubation: glidescope
Tube size (cm): 8.0
Placement confirmed by: auscutation, CXR, capnography and direct visualization
Breath sounds after intubation: equal
Intubation complications: no complications
MDM/Problems Addressed
Differential Diagnosis Includes:
Note:
CHIEF COMPLAINT(S)
Overdose.
HISTORY OF PRESENT ILLNESS
The patient is a 75-year-old male who presented to the emergency department following an intentional ingestion of multiple medications in a suicide attempt. The patient reported taking a significant quantity of various medications a couple of hours
prior to presentation, including 180 tablets of gabapentin 300 mg, 60 tablets of gabapentin 100 mg, 20 tablets of cyclobenzaprine 10 mg, 90 tablets of doxepin 75 mg, and 90 tablets of duloxetine 30 mg. There is an empty bottle of 90 tablets of
clonazepam 0.5 mg but he states he did not take that. The patient indicated distress related to personal events occurring approximately five to six weeks ago. He also mentioned contact with a suicide hotline. The patient denied ingesting his other
medication, namely paroxetine, stating that the bottle was empty.
PHYSICAL EXAM
General: Awake and alert. Answers all questions appropriately
Skin: Warm, dry.
Head: Normocephalic, atraumatic
Neck: Appears supple, trachea midline.
Eyes, Ears, Nose, Mouth, and Throat: Moist mucous membranes. Pupils equal and reactive
Cardiovascular: No signs of cyanosis. Regular rate and rhythm
Respiratory: Respirations are non-labored.
Abdomen: Non-distended
Musculoskeletal: No deformities
Neurological: No focal neurological deficit observed.
Psychiatric: Depressed
PLAN
- Conduct basic blood work to monitor the patients physical condition post-ingestion.
- Continuous monitoring for any acute changes in condition.
- Psychosocial support and psychiatric evaluation.
DIFFERENTIAL DIAGNOSIS
The Differential Diagnosis includes, in no particular order and is not limited to:
- Medication overdose
- Intentional self-harm
- Depression
- Anxiety disorder
- Substance use disorder
- Altered mental status due to polypharmacy
- Acute intoxication
- Sedative-hypnotic overdose
- Antidepressant overdose
- Benzodiazepine overdose
SUMMARY OF ENCOUNTER
The patient was seen in the emergency department due to an overdose involving multiple medications in an apparent suicide attempt. His ingestion included large quantities of gabapentin, cyclobenzaprine, doxepin, clonazepam, and duloxetine. He is
currently awake and conversant. Basic blood work and continuous observation have been initiated. An EKG was performed indicating normal sinus rhythm. Psychosocial support and psychiatric evaluation are part of the ongoing management plan.
DISPOSITION
Discharge planning or admission decisions not explicitly detailed requires ongoing assessment based on the patients clinical progress and psychiatric evaluation outcomes.
ASSESSMENT
Polypharmacy overdose in context of suspected intentional self-harm with components of major depressive disorder or another underlying psychological condition.
EMERGENCY TREATMENTS ADMINISTERED
No emergency medications have been administered as the patient is stable and monitoring is ongoing.
MANAGEMENT OF THE PATIENTS CARE WAS DISCUSSED WITH
Admission or psychiatric consultation suggested but not specifically mentioned in the transcript; requires further evaluation.
INDEPENDENT REVIEW OF LABS AND INTERPRETATION OF TESTS
Basic blood work ordered to monitor the metabolic profile and drug levels post-overdose.
MEDICAL DECISION MAKING
- Number and Complexity of Problems Addressed: Polypharmacy overdose due to intentional self-harm with potentially severe mental health implications.
- Data:
- Category 1: Basic lab tests ordered to evaluate metabolic derangements following ingestion.
- Category 2: My independent interpretation of the EKG shows normal sinus rhythm.
- Risk: High due to medication overdose with potential for life-threatening complications. Close psychiatric follow-up and monitoring indicated.
DIAGNOSIS
- Polypharmacy overdose (ICD-10: T50.902A)
- Intentional self-harm (ICD-10: X84.0XXA)
- Major depressive disorder, recurrent, severe, without psychotic features (ICD-10: F33.2) (requires confirmation through psychiatric evaluation)
EKG
My independent EKG interpretation is:
- Time of EKG: Not specified
- Rhythm: Sinus rhythm
- Heart Rate: 79 beats per minute
- [place]: Normal axis
- MS Interval: Within normal limits
- QRS Duration: Within normal limits
- QT Interval: Within normal limits
- ST Segment: No ST elevation
- T Wave: Not specified
- Arrhythmias: None noted
CARE-UPDATE
10/08/25 - 14:52
The patient is at risk for altered mental status and potential seizures due to the quantity and type of medications ingested. Symptomatic treatment will be provided, with consideration of charcoal administration, although there is a high risk of
vomiting and aspiration. Electrolyte levels will be optimized. The patient is likely to be admitted to the ICU for close monitoring and management. Poison control involved. They discussed keeping calcium above 8 and potassium above 4. We also
discussed giving bicarb as needed if QRS widening is seen
10/08/25 - 15:08
Patient became excessively sleepy and difficult to arouse with painful stimuli. Developed hypoxia while asleep. Decision made to intubate.
SUMMARY OF ENCOUNTER
The patient, a 75-year-old male, presented to the emergency department following an intentional overdose involving multiple medications. He ingested a significant quantity of gabapentin, cyclobenzaprine, doxepin, clonazepam, and duloxetine as part
of a suicide attempt. Due to the patients worsening mental status, he was intubated for airway protection and began receiving activated charcoal to reduce absorption of the ingested medications. Poison control was consulted, advising monitoring of
the patients mental status and QRS interval, and administering bicarbonate if any QRS widening occurs. They also suggested maintaining calcium levels above 8 and potassium levels above 4.
DISPOSITION
Admit for further workup and care.
ASSESSMENT
Polypharmacy overdose due to intentional self-harm with potential complications related to central nervous system depression and cardiovascular effects.
EMERGENCY TREATMENTS ADMINISTERED
Activated charcoal administered following intubation for gastric decontamination.
MANAGEMENT OF THE PATIENTS CARE WAS DISCUSSED WITH
Consultation with the poison control center to provide guidance on monitoring and treatment parameters post-overdose.
PLAN
Admit the patient for close monitoring and further treatment. Continue to monitor and manage the patient�s QRS interval, and maintain appropriate electrolyte levels as per poison control recommendations. Begin psychiatric evaluation once the patient
is medically stable. Continue supportive care.
MEDICAL DECISION MAKING
- Number and Complexity of Problems Addressed: Chronic conditions affecting care include polypharmacy overdose, intentional self-harm, and potential underlying major depressive disorder.
- Data:
- Category 1: My independent interpretation of the EKG shows normal sinus rhythm with no acute abnormalities; however, ongoing monitoring is needed in light of potential changes due to drug effects.
- Category 3: Discussion of management with poison control center regarding post-overdose monitoring and treatment strategies.
DIAGNOSIS
- Polypharmacy overdose (ICD-10: T50.902A)
- Intentional self-harm (ICD-10: X84.0XXA)
- Major depressive disorder, recurrent, severe, without psychotic features (ICD-10: F33.2) (pending psychiatric evaluation)
*Pulse Oximetry
Patient hypoxic: no
*Critical Care Note
Total Time (30-74mins, 75-104mins- exclusive of procedures): 35 min
comment:
The high probability of a clinically significant, sudden or life threatening deterioration of the neurovascular system(s) required my full and direct attention, intervention and personal management. The aggregate critical care time was 35 minutes.
This time is in addition to time spent performing reported procedures but includes the following:
[x] Data Review and interpretation
[x] Patient assessment and monitoring of vital signs
[x] Documentation
[x] Medication orders and management
ED Attending Note
-
Portions of this chart may have been created with voice recognition software.� Occasional wrong word or��sound alike� substitutions may have occurred due to the inherent limitations of voice recognition software.
Discharge Plan
Departure
Patient Disposition: Admit
Date of Disposition: 10/08/25
Time of Disposition: 15:35
Admit to: ICU
Presentation/result/management discussed w/ accepting MD/DO: Hospitalist
Discharge Problem:
Intentional overdose, Acute respiratory distress
[2025-10-08 15:22] LABS: Hematocrit 38.7 % (39.0-52.0); Hemoglobin 12.3 g/dL (13.0-18.0); Mean Corp Hgb Conc. 31.8 g/dL (33.0-37.0); Mean Corpuscular Volume 90.2 fL (80.0-94.0); Platelet Count 275 10^3/uL (130-400); Red Cell Dist. Width 22.1 % (11.5-14.5)
--- NOTE | 2025-10-08 15:34 | W.PN.UPDATE ---
Addendum entered and electronically signed by Rosa Gutierrez MD 10/08/25 16:03:
EKG: NSR @ 79, QTc 424
tylenol, salicylate level neg; no alcohol detected
Original Note:
Update Note
Progress Note Update
This is an addendum to H&P written by resident physician Dr. Zakia Ross
I saw and examined the patient.
The DAYCARE ASSISTANT's note was reviewed and I agree with the note.
Comment:
Mr. Jun Ivan is a 75 yo man with hx COPD, CAD s/p PCI, mild to moderate MR, HLD, anxiety/depression, recent admission 09/08-09/14 for urinary retention s/p linder and foreign body in lower lung (s/p bronch with recovered dime) presents to the
ER after suicide attempt. Suicide hotline was called, pateint was alert on arrival; EMS provided a bag of empty medication bottles:
Gabapentin 300mg 90 caps; Gabapentin 100mg 60 caps ; Flexeril 10mg 20 tabs; Doxepin 75mg 90 tabs; Clonazepam 0.5mg 90 tabs (patient initially denied taking); Duloxetine 30mg 90 tabs; missing blister caps Gabapentin 300mg
Triage VS: BP 122/79, SpO2 95% RA; RR 16
LABS: WBC 12, Hg 12.3, PLT 275, Na 137, K+ 4.4, CO2 28, Cr 0.6, Glucose 70, Mag 2.3, liver enzymes WNL
Suicide Attempt
Intentional Overdose of Gabapentin, Flexeril, Doxepin, likely Clonazepam, Duloxetine
-patient with progressive sedation during ER stay and intubated for airway protection
-follow up CXR
-ABG in one hour
-IV Propofol gtt initiated
-Activated Charcoal given
-ER discussed case with Toxicology - recommending keeping Ca > 8, K > 4; sodium bicarb if QTc prolongation
-repeat labs this evening
-monitor on telemetry, EKG q 6 hours
-Marketing Executive consult
-patient will need 1:1 and Psychiatry consult when extubated
COPD - FIRE SUPPORT MAN inhalers
s/p steroid taper last admission
CAD s/p PCI
med rec to be done when patient awake
Total Critical Care Time 60 minutes. I was immediately available to the patient and staff. I personally examined, reviewed labs, diagnostic images/reports, interpretations, treatment plans, discussed patient care with other providers and family
or caregivers (if patient is unable to make decisions), entered orders as appropriate and documented the medical record.
[2025-10-08 15:36] LABS: ALT (SGPT) 26 U/L (0-50); AST (SGOT) 31 U/L (17-59); Acetaminophen < 10 ug/ml (10-30); Albumin 4.4 g/dl (3.5-5.0); Alkaline Phosphatase 77 U/L (38-126); Blood Urea Nitrogen 15 mg/dl (9-20); Calcium 9.1 mg/dl (8.4-10.2); Carbon Dioxide 28 mmol/L (22-30); Chloride 103 mmol/L (98-107); Estimated Creatinine Clearance 119 ml/min; Glucose 70 mg/dl (70-99); Magnesium 2.3 mg/dl (1.6-2.3); Potassium 4.4 mmol/L (3.5-5.1); Salicylate < 1.0 mg/dl (2.0-20.0); Sodium 137 mmol/L (135-145); Total Protein 7.6 g/dl (6.3-8.2); Triglycerides 88 mg/dl (10-149); eGFR > 60.00
[2025-10-08 15:50] LABS: Nucleated Red Blood Cells % 0 % (-)
--- NOTE | 2025-10-08 16:07 | HPS.HSE ---
Family Physician
-
Family Physician: INTERVIEWE UNKNOWN - PT NOT
Chief Complaint
-
Suicidal ideation
History of Present Illness
75-year-old male past medical history of BPH status post TURP, history of urinary retention, CAD, COPD, orthostatic hypotension, anxiety/depression, peripheral neuropathy, former alcohol use disorder, active smoker, presented to ED after suicidal
attempt. Patient overdosed himself with Flexeril, clonazepam, gabapentin and called the suicide hotline for help. The suicide hotline called 911 and the patient was brought to the ED. There are empty bottles of the above medications. Recent
passing away of .
Upon arrival to the ED he was awake, toxicology was called and activated charcoal was given. However he desaturated around 15:00 and patient was intubated for airway protection. Propofol drip started. Vent setting: tidal volume 464 ml, ppeak 27,
rate 16.
Medical History
Past Medical History
Past Medical History: Reports Other (BPH status post TURP, history of urinary retention, CAD, COPD, orthostatic hypotension, anxiety/depression, peripheral neuropathy, former )
Past Surgical History: Reports Other
Social History
Unable to obtain full social history at this time due to: Patient Intubation
Family History
Family History: Not pertinent
Allergies / Home Medications
Allergies reflects when Allergies were last updated in [facility].
Home Medications with original date entered in [facility] [facility]
Allergy/Medication List:
Allergies
Allergy/AdvReac Type Severity Reaction Status Date / Time
clopidogrel bisulfate (From AdvReac Intermediate upper GI Verified 10/08/25 14:48
Plavix) bleed
Home Medications
albuterol 90 mcg PRN SOB 09/09/25
aspirin 81 mg capsule 81 mg PO DAILY Blood Clot Prevention/Tx 09/09/25
atorvastatin 20 mg tablet 20 mg PO DAILY High Cholesterol 09/09/25
duloxetine 30 mg capsule,delayed release sprinkle 30 mg PO DAILY Depression 09/09/25
fluticasone furoate 100 mcg-vilanterol 25 mcg/dose inhalation powder (Breo Ellipta) 1 inh inhalation DAILY Lung/Breathing Issues 09/09/25
gabapentin 300 mg capsule 300 mg PO TID Neurological Condition 09/09/25
jlwnzxjaodmf-otznvlhf-gfqgpb tablet 1 tab PO DAILY Supplement 09/09/25
nicotine 21 mg/24 hr daily transdermal patch 1 patch transdermal DAILY Smoking Cessation 09/09/25
polyethylene glycol 3350 17 gram oral powder packet (Miralax) 17 g PO DAILY Constipation 09/09/25
acetaminophen 325 mg tablet 650 mg (2 x 325 mg) PO Q4HPRN PRN pain/fever/headache #0 tabs 09/14/25
buprenorphine HCl 8 mg sublingual tablet 8 mg sublingual DAILY pain #3 tabs 09/14/25
clonazepam 1 mg tablet 1 mg PO TID Mental Health/Anxiety #9 tabs 09/14/25
cyclobenzaprine 5 mg tablet 5 mg PO BID PRN spasm #14 tabs 09/14/25
doxepin 50 mg capsule 25 mg (1/2 x 50 mg) PO HS Mental Health/Anxiety #0 caps 09/14/25
famotidine 20 mg tablet (Pepcid) 20 mg PO BID while on steroids #14 tabs 09/14/25
ferrous sulfate 325 mg (65 mg iron) tablet 325 mg PO DAILY anemia #30 tabs 09/14/25
guaifenesin 600 mg tablet, extended release 12 hr 600 mg PO Q12 cough #0 tabs 09/14/25
prednisone 10 mg tablet See Rx Instructions .Route .COMPLEX Lung/breathing issues #30 tabs 09/14/25
sennosides 8.6 mg tablet (senna) 8.6 mg PO BID Constipation #30 tabs 09/14/25
Review of Systems
-
Unable to obtain full review of systems at this time due to: Patient Intubation
Physical Exam
Vital Signs
Vital Signs
Temp Pulse Resp BP Pulse Ox
98.7 F 78 16 122/79 95
10/08/25 14:31 10/08/25 14:31 10/08/25 14:31 10/08/25 14:31 10/08/25 14:31
Physical Exam
General: Intubated
Respiratory: Clear
Cardiac: S1/S2 and Regular Rhythm
GI: Soft and Non Distended
Musculoskeletal: No Edema
Laboratory Results
-
10/08/25 14:53
10/08/25 14:53
Laboratory Results
Total Bilirubin 0.9 mg/dl (0.2-1.3) 10/08/25 14:53
AST 31 U/L (17-59) 10/08/25 14:53
ALT 26 U/L (0-50) 10/08/25 14:53
Alkaline Phosphatase 77 U/L (38-126) 10/08/25 14:53
Data Reviewed
-
Lab Data: Labs Reviewed by me and Discussed with Physician
Impression/Plan
-
IMPRESSION:
Suicide attempt
History of COPD
History of CAD s/p PCI
History of BPH
Active smoker
History of anxiety/depression
PLAN:
Suicide attempt
Intentional overdose of Flexeril, clonazepam, gabapentin
Patient was awake initially however desaturated pretty quickly and was intubated for airway protection
Check chest x ray now
IV propofol gtt. initiated
Toxicology consulted, advised to keep calcium>8 , K>4, sodium bicarb if QTc prolongation
Repeat BMP in evening
Check ABG in an hour
Monitor on telemetry
Staffing And Scheduling Coordinator aware
Consider 1:1 observation when extubated.
Consult psychiatry post extubation
IV PPI -- protection from stress ulcer.
History of COPD
Continue home inhaler/mucinex when extubated
Hold prednisone.
History of CAD s/p PCI
History of BPH
Active smoker
History of anxiety/depression
Full code
SCD
[2025-10-08 16:34] LABS: Urine Character Cloudy (Clear)
[2025-10-08 16:48] LABS: Urine Squamous Cell 0-2 /LPF (Few)
[2025-10-08 16:50] LABS: B.E. 1.4 mmol/L; HCO3 27.2 mmol/L (21-28); O2 Saturation % 97.6 % (94-98); PCO2 47 mmHg (35-48); PO2 79 mmHg (83-108)
[2025-10-08] MEDS: ACTIDOSE WITH SORBITOL 25 GRAMS TUBE (17:13)
[2025-10-08] MEDS: DIPRIVAN 100 IV ×2 (17:13→21:00)
[2025-10-08 18:10] LABS: INR 1.06; PT 13.9 Sec (11.4-14.6)
[2025-10-08 18:11] LABS: APTT 31.3 Sec (23.4-35.0)
[2025-10-08] MEDS: NSS 1000 IV (18:11)
[2025-10-08 18:13] LABS: D-Dimer 0.88 ug/mlFEU (0.00-0.50)
--- NOTE | 2025-10-08 18:45 | PTCARENOTE ---
Pt arrived to [id number] via stretcher from ER at 1700. Pt received intubated w/ #8 ETT, 24cm Rt lip. Placed on vent by RT: AC 16, 500, 40%, +5, Pox 97%. OGT present and clamped at time of arrival w/ residual dark coloring from charcoal administered
in ER- despite flushing tubing, unable to verify distance marking. Pt turned side to side for assessment and care- reached for ETT w/ repositioning. Bilateral soft wrist restraints in place to protect tubing. Pt received w/ Propofol infusing at
30mcg/kg/min. Dr Odell in room to assess pt- order received to exchange pt's existing Uribe catheter from home- replaced w/ #16F temp sensing Uribe catheter (temp sensor not providing accurate temp and not in use). UA obtained and sent to lab.
Bilateral SCDs placed per order. Silicone bordered foam placed to stage 1 pressure wound noted to sacrum. Dry scabbed area to lateral Lt foot ROBERT. Physical assessment completed as documented. Safe environment maintained. No family present- per ER
RN, pt stated he did not have family that he wanted to notify. GAS ANALYST states that Dr Gutierrez stated intent to attempt to contact family noted on medical record.
--- NOTE | 2025-10-08 20:30 | PTCARENOTE ---
Patient received Intubated/Ventilator. #8.0 ETT 24cm Right lip. Ventilator settings: AC Rate 16 TV 500 PEEP 5 FiO2 40%. SpO2 98%. Patient arouses with verbal and tactile stimulation. Pupils size 3 with sluggish to brisk reaction - Equal in
size and reaction. Patient moves all extremities. Strong hand strength. Will not follow commands. Attempts to grab endotracheal tube when awake. Diprivan gtt. IVF at 100 ml/hr. Lungs with scattered rhonchi. Suctioned for thick tannish, brown
secretions via endotracheal tube. Sinus Rhythm. Heart rate 70's. Blood pressure via cuff right upper extremity 118/73 (86). Patient with no c/o chest pain, pressure or discomfort. Abdomen soft, nontender, nondistended. Hypoactive to
normoactive bowel sounds. No BM. No emesis. Orogastric tube intact - Clamped. Uribe catheter - Temperature sensing - Light agustina to yellow urine - Outputs as documented. No edema noted. Positive pulses. Afebrile. Assessment as documented.
[2025-10-08] MEDS: SUBLIMAZE 75 MCG IV (20:54)
[2025-10-08] MEDS: SUBLIMAZE 100 IV (21:00)
[2025-10-08 22:43] LABS: Hematocrit 33.9 % (39.0-52.0); Hemoglobin 10.9 g/dL (13.0-18.0)
--- NOTE | 2025-10-08 23:00 | PTCARENOTE ---
Fentanyl bolus and gtt per order. New PIV #20P placed left wrist. EKG completed. Lab collected and sent. Poison control called ICU and updated on patient. Assessment as documented.
[2025-10-08 23:05] LABS: Triglycerides 114 mg/dl (10-149)
[2025-10-08 23:08] LABS: Blood Urea Nitrogen 15 mg/dl (9-20); Calcium 8.3 mg/dl (8.4-10.2); Carbon Dioxide 26 mmol/L (22-30); Chloride 107 mmol/L (98-107); Estimated Creatinine Clearance 102 ml/min; Glucose 93 mg/dl (70-99); Magnesium 2.3 mg/dl (1.6-2.3); Potassium 4.1 mmol/L (3.5-5.1); Sodium 138 mmol/L (135-145); eGFR > 60.00
[2025-10-09] VITALS (72 sets, daily range): BP systolic 74–187; BP diastolic 40–122
[2025-10-09] MEDS: DIPRIVAN 100 IV ×5 (01:20→23:43)
[2025-10-09] MEDS: NSS 1000 IV ×5 (03:30→22:02)
[2025-10-09 04:57] LABS: B.E. 1.2 mmol/L; HCO3 26.0 mmol/L (21-28); O2 Saturation % 100.0 % (94-98); PCO2 41 mmHg (35-48); PO2 110 mmHg (83-108)
[2025-10-09 05:37] LABS: Hematocrit 34.5 % (39.0-52.0); Hemoglobin 10.8 g/dL (13.0-18.0); Mean Corp Hgb Conc. 31.3 g/dL (33.0-37.0); Mean Corpuscular Volume 92.7 fL (80.0-94.0); Platelet Count 202 10^3/uL (130-400); Red Cell Dist. Width 22.1 % (11.5-14.5)
[2025-10-09 05:42] LABS: Blood Urea Nitrogen 15 mg/dl (9-20); Calcium 8.3 mg/dl (8.4-10.2); Carbon Dioxide 26 mmol/L (22-30); Chloride 106 mmol/L (98-107); Estimated Creatinine Clearance 102 ml/min; Glucose 86 mg/dl (70-99); Magnesium 2.3 mg/dl (1.6-2.3); Potassium 4.3 mmol/L (3.5-5.1); Sodium 136 mmol/L (135-145); eGFR > 60.00
--- NOTE | 2025-10-09 06:00 | PTCARENOTE ---
Patient given CHG bath and linens changed. EKG completed. Portable CXR completed. AM labs collected and sent. Continues on Fentanyl gtt and Propofol gtt. Assessment/Interventions as documented.
[2025-10-09 07:19] LABS: Nucleated Red Blood Cells % 0.2 % (-)
[2025-10-09] MEDS: SUBLIMAZE 50 MCG IV ×6 (07:56→19:54)
--- NOTE | 2025-10-09 08:20 | PTCARENOTE ---
Assumed care of pt at 0730 following shift report. Pt received intubated, on ventilator at ordered settings w/ POx mid 90's. Propofol and Fentanyl gtts infusing- titrated per ordered parameters. MAEW, inconsistently following commands. Attempting
to communicate w/ gestures/mouthing words- Pt w/ periods of restlessness/agitation. Fentanyl bolus given per DEC. OGT remains in place and clamped. Uribe catheter draining clear dark yellow urine. Physical assessment completed as documented.
Turned/repositioned and comfort care/hygiene provided. Safe environment maintained.
--- NOTE | 2025-10-09 08:28 | CON.INTV ---
Consultation
Consultation Request
Date/Time Consultation Requested: 10/08/20251606
Date/Time Consultation Performed: 10/09/2025825
Requesting Provider: Dr. Ross
Performing Provider: Dr. Odell
Reason for Consultation: Drug overdose; intubated
Medical History
-
Chief Complaint: Drug overdose/AMS
History of Present Illness:
75-year-old male with a past medical history of suspected COPD, history of smoking, BPH with urinary retention, anxiety/depression, history of alcohol use disorder, peripheral neuropathy, history of suicidal behavior, and CAD with history of NE who
presents with suicide attempt. Patient recently lost his and felt depressed. He stated that he took all of the medications including his gabapentin, Flexeril, doxepin, clonazepam, and duloxetine. Patient arrived to the ER with blister packs
and medications where all the doses were missing. Many of the blister packs were missing as well. Initially he was afebrile, pulse rate 85, respiratory rate 20, BP 122/79 and saturating 97% on room air. Toxicology called and activated
charcoal was given. He did end up desaturating into the mid 80s and was intubated for airway protection. Initial labs showed Hb 12.3, WBC 12, absolute eosinophil count of 800, urinalysis with positive nitrites, +2 leukocyte esterase, with urine
toxicology negative and alcohol level negative. CXR showed no acute disease of the chest. Patient was started on propofol and admitted to the ICU for further care. Website Optimization Strategist service consulted for additional management/recommendations.
When I saw the patient this morning, he was resting in bed, intubated on AC/CMV at 16/500/50%/5, with PIP 18 cmH2O, VTe 420 mL, and breathing at 16 breaths/min. Heart rate currently 61, and SpO2 99%. Currently sedated on fentanyl at 100 mcg/h and
propofol at 50 mcg/kg/min. When he does awaken from sedation, he becomes significantly agitated, tries to sit up and take the tube out.
PMHx: History of suspected COPD, history of smoking, BPH with urinary retention, anxiety/depression, history of alcohol use disorder, peripheral neuropathy, history of suicidal behavior, CAD with history of NE with coronary stents x 3, colonic
arterial rupture s/p surgical correction, history of GI bleed, history of pancreatitis, bipolar disorder, depression
PSHx: TURP, T&A, left hernia repair, right elbow surgery, left foot fifth toe amputation, coronary stents x 3, screen placed in artery and colon secondary to rupture,
Past Medical History
Past Medical History: Other (Above as per HPI)
Past Surgical History: Other (Above as per HPI)
Social History
Tobacco: Smoker (>37-xfhg-mrcp history)
Alcohol: Former
Drug: None
Family History
Family History: Reviewed & Not Pertinent
Allergies / Home Medications
Allergies
Allergy/AdvReac Type Severity Reaction Status Date / Time
clopidogrel bisulfate (From AdvReac Intermediate upper GI Verified 10/08/25 14:48
Plavix) bleed
Home Medications
�Medication �Instructions �Recorded �Confirmed �Last Taken �Type
albuterol 90 mcg PRN SOB 09/09/25 Unknown History
aspirin 81 mg capsule 81 mg PO DAILY Blood Clot 09/09/25 09/09/25 Unknown History
Prevention/Tx
atorvastatin 20 mg tablet 20 mg PO DAILY High Cholesterol 09/09/25 09/09/25 Unknown History
duloxetine 30 mg capsule,delayed 30 mg PO DAILY Depression 09/09/25 09/09/25 Unknown History
release sprinkle
fluticasone furoate 100 1 inh inhalation DAILY 09/09/25 09/09/25 Unknown History
mcg-vilanterol 25 mcg/dose Lung/Breathing Issues
inhalation powder (Breo Ellipta)
gabapentin 300 mg capsule 300 mg PO TID Neurological 09/09/25 09/09/25 Unknown History
Condition
blcyhynqggje-lehdslde-ybkmqy tablet 1 tab PO DAILY Supplement 09/09/25 09/09/25 Unknown History
nicotine 21 mg/24 hr daily 1 patch transdermal DAILY Smoking 09/09/25 09/09/25 Unknown History
transdermal patch Cessation
polyethylene glycol 3350 17 gram 17 g PO DAILY Constipation 09/09/25 09/09/25 Unknown History
oral powder packet (Miralax)
acetaminophen 325 mg tablet 650 mg (2 x 325 mg) PO Q4HPRN PRN 09/14/25 Unknown Rx
pain/fever/headache #0 tabs
buprenorphine HCl 8 mg sublingual 8 mg sublingual DAILY pain #3 tabs 09/14/25 Unknown Rx
tablet
clonazepam 1 mg tablet 1 mg PO TID Mental Health/Anxiety 09/14/25 09/09/25 Unknown Rx
#9 tabs
cyclobenzaprine 5 mg tablet 5 mg PO BID PRN spasm #14 tabs 09/14/25 Unknown Rx
doxepin 50 mg capsule 25 mg (1/2 x 50 mg) PO HS Mental 09/14/25 09/09/25 Unknown Rx
Health/Anxiety #0 caps
famotidine 20 mg tablet (Pepcid) 20 mg PO BID while on steroids #14 09/14/25 Unknown Rx
tabs
ferrous sulfate 325 mg (65 mg 325 mg PO DAILY anemia #30 tabs 09/14/25 Unknown Rx
iron) tablet
guaifenesin 600 mg tablet, 600 mg PO Q12 cough #0 tabs 09/14/25 Unknown Rx
extended release 12 hr
prednisone 10 mg tablet See Rx Instructions .Route 09/14/25 Unknown Rx
.COMPLEX Lung/breathing issues #30
tabs
sennosides 8.6 mg tablet (senna) 8.6 mg PO BID Constipation #30 tabs 09/14/25 Unknown Rx
Review of Systems
-
Unable to Obtain full review of systems at this time due to: Patient Intubation
Vitals / Labs / Diagnostic Testing
Vital Signs
Temp Pulse Resp BP Pulse Ox
97.5 F 62 8 107/60 97
10/09/25 11:59 10/09/25 10:27 10/09/25 10:27 10/09/25 10:00 10/09/25 12:00
Lab Data
10/09/25 04:41
10/09/25 04:41
Laboratory Results
10/08/25 10/08/25 10/09/25
16:22 17:50 04:13
PT 13.9
INR 1.06
APTT 31.3
pH 7.37 7.41
pCO2 47 41
pO2 79 L 110 H
HCO3 27.2 26.0
O2 Delivery Level
Diagnostic Testing:
Physical Exam
-
HEENT: Normocephalic, Anicteric and Other (ETT in place)
Cardiovascular: S1/S2 and Peripheral Edema (negative)
Respiratory: Wheeze (negative), Rales (negative), Rhonchi (negative), Non-Labored Respirations and Other (Mechanical breath sounds heard bilaterally)
GI: Soft, Non Distended, Non Tender and Normal Bowel Sounds
Neurology: Tremors (negative) and Other (Sedated, although occasionally awakening and becomes extremely agitated)
Skin: Warm and Dry
General: Respiratory Distress (negative), Comfortable, Fever (negative) and Chills (negative)
Assessment
-
Assessment: 75-year-old male with a past medical history of suspected COPD, history of smoking, BPH with urinary retention, anxiety/depression, history of alcohol use disorder, peripheral neuropathy, history of suicidal behavior, and CAD with
history of NE who presents with suicide attempt. Patient recently lost his and felt depressed. He stated that he took all of the medications including his gabapentin, Flexeril, doxepin, clonazepam, and duloxetine. Patient arrived to the ER
with blister packs and medications where all the doses were missing. Many of the blister packs were missing as well. Initially he was afebrile, pulse rate 85, respiratory rate 20, BP 122/79 and saturating 97% on room air. Toxicology
called and activated charcoal was given. He did end up desaturating into the mid 80s and was intubated for airway protection. Initial labs showed Hb 12.3, WBC 12, absolute eosinophil count of 800, urinalysis with positive nitrites, +2 leukocyte
esterase, with urine toxicology negative and alcohol level negative. CXR showed no acute disease of the chest. Patient was started on propofol and admitted to the ICU for further care. Website Optimization Strategist service consulted for additional
management/recommendations.
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
x 3, colonic arterial rupture s/p surgical correction, history of GI bleed, history of pancreatitis, bipolar disorder, depression
Impression:
#Ventilator dependent respiratory failure s/p suicide attempt
#Suicide attempt with ingestion of multiple home medications
#Hypotension which is likely sedation related
#Abnormal urinalysis with concern for UTI
#History of COPD on Breo as an outpatient
#Elevated eosinophil count (peak count of 1100 and November 2016; levels are now 800 on admission)
#CAD s/p PCI
#Chronic anemia
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
Plan:
- Patient was reported to have taken many packs of his medications, unclear the exact quantity of what he took
- He was feeling depressed regarding his 's
- There were empty bottles of Flexeril, clonazepam, and gabapentin and activated charcoal given to the patient in the ER
- Do not suction the activated charcoal to allow it to pass entirely through the guide
- Once patient extubated, will need psychiatry consult with 1:1
- Continue with mechanical ventilation with daily SAT/SBT if clinically appropriate
- Maintain plateau pressure <30 and titrate FiO2 + PEEP to keep SpO2 >90-94%
- Continue aspiration precautions; keep HOB >30-45�
- prn nebulized bronchodilators - not currently bronchospastic
- Oropharyngeal + deep ETT suctioning with subglottic as needed
- Daily CXR + blood gas
- Daily vent adjustments as needed based on blood gas and SaO2
- Low level of sedation with goal RASS as 0 to -2 - -> patient is requiring high amounts of fentanyl + propofol; start Precedex in an attempt to wean down on propofol
- Maintain MAP>65, with low threshold to start vasopressors
- Give additional bolus of IVF now given he is having hypotension with reduced urine output, which is likely sedation related
- Maintenance IVF
- Trend UOP and sCr; I/O
- Given abnormal urinalysis, start ceftriaxone; follow-up urine culture
- Patient is a tobacco smoker and has suspected COPD
- Given that he takes Breo as an outpatient, start DuoNebs + budesonide
- No wheezing on exam, hence no need for systemic steroids at this time
- Nicotine patch
- Replete electrolytes with K>4, Mg>2
- Maintain euglycemia with goal BG 140-180; check A1C
- Trend H/H and transfuse if needed to keep Hb>7g/dL; keep plt>20k, unless there is concern for bleeding then keep plt>50k
- Bowel regimen
- Early nutrition
-Stress ulcer prophylaxis: Not indicated at this juncture given not in shock and no current concern for sepsis
- DVT ppx
Critical care statement: A total of 37 minutes of critical care time was provided for this patient today. This includes management of unstable vital signs, evaluation of the patient at bedside, reviewing the patient's pertinent medical records
including radiographs, microbiology, laboratory evaluations, and discussion with primary team, consultants, pharmacy, nutrition, physical therapy, case management, charge nurse, critical care nursing, and respiratory therapy.
--- NOTE | 2025-10-09 08:43 | W.PN.HOSP.TC ---
Today's Communication/Plan
-
Wean from ventilator per pulmonary
Place him on one-to-one and obtain psychiatry evaluation after extubation
Assessment / Plan
Assessment / Plan
Suicide Attempt
Intentional Overdose of possible gabapentin, Flexeril, Doxepin, likely Clonazepam, Duloxetine
Anxiety/depression
-patient with progressive sedation during ER stay and intubated for airway protection
-IV Propofol gtt initiated
-Activated Charcoal given
-ER discussed case with Toxicology - recommending keeping Ca > 8, K > 4; sodium bicarb if QTc prolongation
- Potassium more than 4 and calcium more than 8. QTc this morning is 431.
-repeat labs this morning are okay
-monitor on telemetr
- Serum and urine drug screen is negative
-patient will need 1:1 and Psychiatry consult when extubated
- Wean and extubate per pulmonary
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
s/p steroid taper last admission
No active bronchospasm
CAD s/p PCI
No acute ST/T changes on admitting EKG
Will reassume his medications once extubated
Discussed with WELT BEATER
Total time spent on today's encounter was 52 minutes which included time spent in counseling the patient/family regarding diagnosis and treatment plan as listed above, goals of care, and symptom management. Case was discussed with nursing staff,
specialists, and care coordinators/case management. All labs and imaging personally reviewed by me. Remainder the time spent in detailed review of previous records, lab data, imaging, and other medical provider documentation.
Portions of this chart may have been created with voice recognition software. Occasional wrong word or 'sound alike' substitutions may have occurred due to the inherent limitations of voice recognition software.
Anticipated Discharge: > 48 hours
Subjective/Interval History
-
Date of Service: October 09, 2025
Patient is intubated and sedated.
Patient woke up provide I called his name and started to become agitated. He is clinically lethargic.
According to RN patient having waves of agitation and sedation.
Objective Data
-
Labs:
Laboratory Results
10/08/25 10/09/25 10/09/25
22:35 04:13 04:41
WBC 9.7
Hgb 10.9 L 10.8 L
Hct 33.9 L 34.5 L
Plt Count 202 D
HCO3 26.0
Sodium 138 136
Potassium 4.1 4.3
Chloride 107 106
Carbon Dioxide 26 26
BUN 15 15
Creatinine 0.5 L 0.6 L
Glucose 93 86
Calcium 8.3 L 8.3 L
Vital Signs:
Vital Signs
Temp Pulse Resp BP Pulse Ox
97.6 F 56 18 122/64 97
10/09/25 07:39 10/09/25 06:45 10/09/25 06:45 10/09/25 06:05 10/09/25 08:01
I&O
10/08/25 10/09/25 10/10/25
06:59 06:59 06:59
Intake Total 1413 / 1532 242.5 / 242.5
Output Total 625 / 665 80 / 80
Balance 788 / 867 162.5 / 162.5
Review of Systems
-
Unable to obtain full review of systems at this time due to: Patient Intubation
Physical Exam
-
General: No Apparent Distress
Respiratory: Clear to Auscultation (Anterior) and Non Labored Respirations; Negative Accessory Resp Muscle Use
Cardiac: Regular Rhythm and S1/S2; Negative Tachycardic
GI: Soft, Nondistended and Normal Bowel Sounds
Musculoskeletal: No Edema
Neuro: Sedated
Data Reviewed
-
Labs: Labs Reviewed by me
--- NOTE | 2025-10-09 10:49 | PTCARENOTE ---
Spontaneous awakening trial/ SBT. Sedation on hold at 1000 and by 1015 pt awake, agitated, nodding appropriately to questions and trying to communicate w/ gestures and mouthing words (very difficult to understand). Pt appears angry. Attempts to
reassure, provide emotional support unsuccessful. Pt attempting to remove ETT and combative w/ staff. When pt not agitated and combative and pt more restful, pt noted to have periods of apnea w/ Pox dropping into mid 80's. RR 6-10 bpm. SBT ended at
1040 due to dropping POx and extreme agitation requiring four staff members to keep pt from self extubating. Fentanyl bolus given and Fentanyl and Propofol gtts resumed. Dr Hunt in room to evaluate pt and updated on events.
[2025-10-09] MEDS: MIRALAX 17 GRAMS TUBE (11:00)
[2025-10-09] MEDS: PRECEDEX 100 IV ×2 (13:48→20:17)
--- NOTE | 2025-10-09 15:40 | PTCARENOTE ---
Pt's SBP in 70-80's w/ MAPs in 50's. Dr Odell notified and orders received. 1L NSS bolus started infusing. Will monitor
--- NOTE | 2025-10-09 16:00 | PTCARENOTE ---
1550 pt becoming increasingly agitated and combative. Attempting to remove ETT using tongue and placing secure airway in jeopardy. When informed pt that the ETT was important to his safety, pt became more angry and started shaking his head 'no'.
When asked pt if his 'no' meant that he didn't want to be safe and would like to harm self, he emphatically nodded his head. Resp Therapy called to bedside to help resecure ETT. Fentanyl bolus given and Propofol gtt restarted in conjunction w/
infusing Precedex gtt. Will continue to monitor closely.
--- NOTE | 2025-10-09 16:30 | PTCARENOTE ---
Pt's son 'Bill' here to visit. Updated on pt's present condition, including pt's recent agitation w/ clearly expressed desire to continue to harm self. Pt's son indicated that this was typical of his's father's behavior 'I'm 55 and I've been dealing
with this all my life'. Pt's son given bag brought in from home w/ pt that contain empty prescription bottles and blister packs of meds. Son planning to take bag w/ bottles/pills with him when he goes home. Son provided phone number for ICU and
encouraged to call for updates if desired. Son presently sitting at bedside. Pt currently resting quietly w/ eyes closed- no further restlessness/agitation
[2025-10-09] MEDS: LEVOPHED 250 IV (19:02)
[2025-10-09] MEDS: SUBLIMAZE 100 IV (19:58)
--- NOTE | 2025-10-09 20:00 | PTCARENOTE ---
Rec'd pt w/ wrists restrained for pt safety, precedex gtt at 0.8, dip gtt at 30mic, fent at 100mic, pre med w/ fent 50mic before turning & moving ett, VINCENT at 2mm, sluggish, SR, to keep MAP > 65 w/ levo, bp very labile, see flow sheet for
titrations, weak distal pulses, skin warm/dry, #8 oral ett- repos in center at 24 cm, ac 16, tv 500, 5 peep, decr to 40% by resp, sat 100, lungs w/ few rhonchi, decr in basessm amt thick stinson secretions, oral [place] clamped for med, hypo bowel sounds,
no bm, abd soft, no vomiting, npo, linder draining agustina urine
[2025-10-09] MEDS: SENNA SYRUP 8.8 MG TUBE (21:00)
[2025-10-10] VITALS (68 sets, daily range): BP systolic 72–179; BP diastolic 41–76; PULSE 58; BMI 21.1
--- NOTE | 2025-10-10 | PTCARENOTE ---
sys reviewed, changes noted, CHG bath done, linens changed
[2025-10-10] MEDS: PROTONIX IV 40 MG IV ×2 (01:07→08:17)
[2025-10-10] MEDS: ROCEPHIN 2000 MG IV ×2 (01:07→23:25)
[2025-10-10] MEDS: NSS (PRESERVATIVE FREE) 10 ML IV ×2 (01:07→08:17)
[2025-10-10] MEDS: STERILE WATER FOR INJECTION 20 ML IV ×2 (01:08→23:25)
[2025-10-10 03:23] LABS: Hematocrit 33.6 % (39.0-52.0); Hemoglobin 10.4 g/dL (13.0-18.0); Mean Corp Hgb Conc. 31.0 g/dL (33.0-37.0); Mean Corpuscular Volume 91.8 fL (80.0-94.0); Platelet Count 187 10^3/uL (130-400); Red Cell Dist. Width 21.8 % (11.5-14.5)
[2025-10-10] MEDS: PRECEDEX 100 IV ×3 (03:39→18:29)
[2025-10-10 03:45] LABS: Blood Urea Nitrogen 11 mg/dl (9-20); Calcium 7.9 mg/dl (8.4-10.2); Carbon Dioxide 23 mmol/L (22-30); Chloride 110 mmol/L (98-107); Estimated Creatinine Clearance 102 ml/min; Glucose 81 mg/dl (70-99); Magnesium 2.0 mg/dl (1.6-2.3); Potassium 4.3 mmol/L (3.5-5.1); Sodium 136 mmol/L (135-145); eGFR > 60.00
[2025-10-10] MEDS: SUBLIMAZE 50 MCG IV ×2 (03:45→08:10)
--- NOTE | 2025-10-10 04:41 | PTCARENOTE ---
sys reviewed, ett repos on left side at 24 cm, new ett palacios applied
[2025-10-10] MEDS: SUBLIMAZE 100 IV (04:59)
[2025-10-10 05:10] LABS: B.E. -1.7 mmol/L; HCO3 24.3 mmol/L (21-28); O2 Saturation % 98.4 % (94-98); PCO2 45 mmHg (35-48); PO2 83 mmHg (83-108)
[2025-10-10] MEDS: DIPRIVAN 100 IV (05:51)
[2025-10-10] MEDS: MIRALAX 17 GRAMS TUBE (08:05)
[2025-10-10] MEDS: SENNA SYRUP 8.8 MG TUBE (08:05)
[2025-10-10] MEDS: PULMICORT 0.5 MG INH ×2 (08:16→20:43)
[2025-10-10] MEDS: DUONEB 3 ML INH ×4 (08:16→20:42)
[2025-10-10] MEDS: NICODERM TRANSDERMAL 14 MG TRANSDERM (08:17)
--- NOTE | 2025-10-10 08:33 | W.PN.INTV ---
Today's Communication / Plan
Recommendations
- Tolerated SAT/SBT well, extubated to nasal cannula
- Psychiatry consult
- Wean Precedex as tolerated
Assessment
-
Assessment: 75-year-old male with a past medical history of suspected COPD, history of smoking, BPH with urinary retention, anxiety/depression, history of alcohol use disorder, peripheral neuropathy, history of suicidal behavior, and CAD with
history of CO who presents with suicide attempt. Patient recently lost his and felt depressed. He stated that he took all of the medications including his gabapentin, Flexeril, doxepin, clonazepam, and duloxetine. Patient arrived to the ER
with blister packs and medications where all the doses were missing. Many of the blister packs were missing as well. Initially he was afebrile, pulse rate 85, respiratory rate 20, BP 122/79 and saturating 97% on room air. Toxicology
called and activated charcoal was given. He did end up desaturating into the mid 80s and was intubated for airway protection. Initial labs showed Hb 12.3, WBC 12, absolute eosinophil count of 800, urinalysis with positive nitrites, +2 leukocyte
esterase, with urine toxicology negative and alcohol level negative. CXR showed no acute disease of the chest. Patient was started on propofol and admitted to the ICU for further care. Fire Prevention Inspector service consulted for additional
management/recommendations.
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
x 3, colonic arterial rupture s/p surgical correction, history of GI bleed, history of pancreatitis, bipolar disorder, depression
Assessment and plan
#1. Acute hypoxic respiratory failure in the setting of suicide attempt, probably medication overdose
- S/p intubation and mechanical ventilation in the setting of hypoxia and inability to protect airway
- 10/10, tolerated SAT/SBT well, stopped all sedation, extubated to nasal cannula
#2. Suicide attempt with ingestion of multiple home medications
- Status post activated charcoal emergency room
- Intubated for airway protection, extubated 10/10
- Psychiatric consult
#3. Hypotension which is likely sedation related
- Resolved since off sedation and extubated.
#4. Abnormal urinalysis with concern for UTI
-IV Rocephin, await cultures
#5. History of COPD
- on Breo as an outpatient
- Continue budesonide and DuoNeb as scheduled
Other medical diagnoses:
- Elevated eosinophil count (peak count of 1100 and November 2016; levels are now 800 on admission)
- H/o CAD s/p PCI
- Chronic anemia
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
- Anxiety. Resume clonazepam. Requiring Precedex postextubation
Critical Care time 48 mins -- The patient is admitted for acute critical illness for the treatment of vital organ failure and/or prevention of further life-threatening conditions. Total care includes time spent in review of history, physical exam,
medications, hemodynamic/ventilator parameters, laboratory data, imaging and discussion with house staff, pharmacy, respiratory therapy, checker and packer, and nursing.
Subjective Dataa
Subjective Data
Date of Service:
Date of Service: October 10, 2025
Subjective:
Patient intubated, mechanically ventilated and sedated
Review of Systems
General: Unobtainable - Sedation
Genitourinary: Other
Objective Data
Data Reviewed
Vital Signs / I&O / Oxygen:
Vital Signs
Temp Pulse Resp BP Pulse Ox
98.1 F 75 18 90/51 100
10/10/25 07:22 10/10/25 08:20 10/10/25 08:20 10/10/25 06:30 10/10/25 08:21
Intake and Output
10/09/25 10/10/25 10/11/25
06:59 06:59 06:59
Intake Total 1413 / 1532 5090.1 / 5229.3 139.2 / 139.2
Output Total 625 / 665 2210 / 2385 175 / 175
Balance 788 / 867 2880.1 / 2844.3 -35.8 / -35.8
SaO2 [A/C] 95
SaO2 100
Physical Exam
General: Comfortable
HEENT: Normocephalic
Cardiovascular: S1-S2
Respiratory: Non-Labored Respirations
GI: Soft and Non Distended
Neurology: Awake and Alert
Skin: Warm
Labs/Micro/Reports
Lab Data
10/10/25 03:01
10/10/25 03:01
Laboratory Results
10/10/25
04:30
pH 7.34 L
pCO2 45
pO2 83
HCO3 24.3
O2 Delivery Level
[2025-10-10 09:29] LABS: Glycohemoglobin (HgbA1c) 5.1 % (4.0-5.9)
[2025-10-10] MEDS: NSS 1000 IV (09:44)
[2025-10-10] MEDS: TYLENOL 650 MG PO ×2 (11:20→17:38)
[2025-10-10] MEDS: ATIVAN 0.5 MG IV (11:21)
--- NOTE | 2025-10-10 12:04 | PTCARENOTE ---
Patient extubated at 1045, on 5L NC. Oral secretions suctioned. Patient agitated stating 'I have a lot to say and its not [place] Hodge'. Pt reports feeling anxiety and demanding his clonazepam. Pt clenching fist, unable to get accurate Sp02
reading.
Support provided, offered to put on TV or music, pt declined. 0.5mg IV Ativan given. Pt febrile 103. Passed bedside swallow eval. Tylenol given. Blood cultures drawn and sent.
[2025-10-10] MEDS: CALCIUM GLUCONATE 100 IV (12:47)
--- NOTE | 2025-10-10 12:47 | W.PN.HOSP.TC ---
Today's Communication/Plan
-
Extubated remains in stable respiratory status.
Aspiration precautions
Speech assessment
Psychiatry assessment.
Maintain Uribe.
Ceftriaxone pending urine and blood culture.
Monitor temperature trend
Assessment / Plan
Assessment / Plan
Impression
VDRF.
Suicidal attempt with ingestion of multiple home medications.
Transient hypotension secondary to sedation
Fever
Suspected catheter associated UTI
Other conditions
COPD.
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
Chronic anemia.
Plan
Ventilator dependent respiratory failure secondary to intentional overdose with multiple substances.
Stable respiratory status and patient extubated on 10/10.
Imaging with no evidence of focal infiltrate.
Blood gas with no evidence of CO2 retention
Continue aspiration precautions.
Speech assessment postintubation
Transient hypotension without evidence of sepsis or septic shock and possibly related to sedation.
Improved with IV fluids.
Continue monitoring.
Intentional overdose with multiple medications.
History of anxiety and depression
Suspect benzodiazepine dependence while on clonazepam standing dose at 0.5 mg 3 times daily.
Preadmission regimen including duloxetine, clonazepam, gabapentin
Psychiatry evaluation for further recommendations
Continue suicidal precautions
COPD with no evidence of exacerbation.
On Breo elliptica [employer] R[employer]TON.
CAD with history of PCI.
Resume aspirin, statin,
Suspect catheter associated UTI.
Chronic indwelling Uribe catheter exchanged on admission.
Urine cultures pending
Blood cultures pending.
Empiric ceftriaxone initiated
On Flomax
Anticipated Discharge: 24 - 48 hours
Subjective/Interval History
-
Date of Service: October 10, 2025
Objective Data
-
Labs:
Laboratory Results
10/10/25 10/10/25
03:01 04:30
WBC 12.2 H
Hgb 10.4 L
Hct 33.6 L
Plt Count 187
HCO3 24.3
Sodium 136
Potassium 4.3
Chloride 110 H
Carbon Dioxide 23
BUN 11
Creatinine 0.5 L
Glucose 81
Calcium 7.9 L
Vital Signs:
Vital Signs
Temp Pulse Resp BP Pulse Ox
102.5 F H 79 16 93/69 96
10/10/25 11:02 10/10/25 12:30 10/10/25 12:30 10/10/25 12:30 10/10/25 12:08
I&O
10/09/25 10/10/25 10/11/25
06:59 06:59 06:59
Intake Total 1413 / 1532 5090.1 / 5229.3 724.4 / 724.4
Output Total 625 / 665 2210 / 2385 995 / 995
Balance 788 / 867 2880.1 / 2844.3 -270.6 / -270.6
Physical Exam
-
General: Well Developed and No Apparent Distress
HEENT: Normocephalic, Atraumatic and Moist Mucous Membranes
Respiratory: Clear to Auscultation
Cardiac: Regular Rhythm and S1/S2; Negative Murmur, Rub or Gallop
GI: Soft, Nontender, Nondistended and Normal Bowel Sounds; Negative Organomegaly
Rectal: Deferred by Provider
Musculoskeletal: No Clubbing, No Cyanosis and No Edema
Skin: Negative Rash
Neuro: Nonfocal/Grossly Intact
--- NOTE | 2025-10-10 15:32 | PTCARENOTE ---
Patient clenching fist and shaking head. States 'I need something for anxiety'. Dr. Cervantes made aware. Ordered 1mg PO Clonazepam x1 now; administered per the MAR. Patient states he takes 1mg Clonazepam TID at home. Upon reassessment pt resting eyes
closed in bed, respirations even and unlabored. Precedex tapered down to 0.8mcg/hr/min. 100% Sp02 on 5L NC. 02 decreased to 2L NC, Sp02 96-100%. Offered to help patient out of bed into a chair. Pt refused. 1:1 sitter at bedside for SI. Psych consult
in place and pending.
--- NOTE | 2025-10-10 16:42 | CM ---
Patient seen at bedside, Patient son spoke with CM via phone. Patient son stated that his father lived alone in an apartment. Patient 08/23/25 and patient has been very depressed. Patient son stated that his father is a recovering
alcoholic and he is concerned about his ability to care for himself. Patient niece was the caregiver prior to her move to [place]. Patient had been seen at home with VN according to patient for the last 2 weeks. Patient son does feel that this was
intentional, pending Psych assessment. Pending psych assessment. CM will continue to follow for discharge planning needs.
Plan; pending psych assessment. psych placement pending medical treatment plan
--- NOTE | 2025-10-10 16:45 | PTCARENOTE ---
Dr. Quinn at bedside speaking with patient.
[2025-10-10] MEDS: LOVENOX 40 MG SC (17:16)
--- NOTE | 2025-10-10 17:47 | PTCARENOTE ---
Evening reassessment: A/O x3, [place]. Follows commands. + PERRLA. Reports chronic anxiety since his late passing. 2-3L NC in place, Sp02 95-100%. Lungs dim with rhonchi at bases R>L. +cough, scant yellow sputum. NSR on tele. SBP 90s-130s. Afebrile
since this morning. PRN Tylenol provided for SUÁREZ after dinner. Tolerating regular diet, great appetite. Swallowing w/o s/s of aspiration. IVF stopped. Uribe draining yellow urine with some sediment. No BM, +BS throughout. Sacrum is intact with
non-blanchable redness. Foam mepliex in place. Refused OOB today. Patient has been encouraged to reposition self while in bed, able to pull himself up in bed. SCDs on. Precedex weaning down; infusing via Right PIV. New PIV placed earlier today to
Left wrist; saline locked. 18g LAC and 20g in LFA removed d/t infiltration & phlebitis. Pt denies pain in those areas. 1:1 at bedside. Offered pt to turn on TV or music, pt declined.
[2025-10-10] MEDS: SENOKOT 8.6 MG PO (19:07)
--- NOTE | 2025-10-10 19:17 | PTCARENOTE ---
Rec'd pt on 1:1 suicide observation, precedex being weaned off as lucio, presently at 0.5, oriented, cooperative, NUGENT, Sinus lasha, bp stable, weak distal pulses, skin warm/dry, o2 decr to 2 liters nc, sat 99, lungs decr in bases, + bowel sounds, no
bm, abdsoft, no n/v, lucio diet, linder draining yellow uirne
--- NOTE | 2025-10-10 21:29 | PTCARENOTE ---
c/o chest pain- ekg done, - B MCKAYLA Ramos aware, ekg showed NSR w/o changes, 2200 klonopin dose given as ordered
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
--- NOTE | 2025-10-10 22:51 | PTCARENOTE ---
still w/ chest discomfort, 'at home I take klonopin to help relieve the Pain', Eugenie Ramos NP in to see pt, trop sent, klonopin 0.5 mg po given as ordered
[2025-10-10 23:19] LABS: Troponin I 0.014 ng/ml
[2025-10-11] VITALS (15 sets, daily range): BP systolic 89–165; BP diastolic 39–77; BMI 22.0
--- NOTE | 2025-10-11 00:04 | PTCARENOTE ---
sys reviewed, dozing on & off, prec decr to 0.2 neftaly for bp
--- NOTE | 2025-10-11 02:00 | PTCARENOTE ---
tylenol 650mg po given for headache
[2025-10-11] MEDS: TYLENOL 650 MG PO ×4 (02:02→23:20)
[2025-10-11] MEDS: DILAUDID 0.5 MG IV (02:27)
--- NOTE | 2025-10-11 02:30 | PTCARENOTE ---
pt still c/o chest ache, B Ramos, CORE LOADER aware, dilaudid 0.5 mg iv given as ordered
[2025-10-11 03:29] LABS: Hematocrit 28.0 % (39.0-52.0); Hemoglobin 9.0 g/dL (13.0-18.0); Mean Corp Hgb Conc. 32.1 g/dL (33.0-37.0); Mean Corpuscular Volume 90.3 fL (80.0-94.0); Platelet Count 149 10^3/uL (130-400); Red Cell Dist. Width 21.3 % (11.5-14.5)
[2025-10-11 03:45] LABS: Blood Urea Nitrogen 13 mg/dl (9-20); Calcium 8.0 mg/dl (8.4-10.2); Carbon Dioxide 24 mmol/L (22-30); Chloride 100 mmol/L (98-107); Estimated Creatinine Clearance 108 ml/min; Glucose 100 mg/dl (70-99); Magnesium 1.9 mg/dl (1.6-2.3); Potassium 4.3 mmol/L (3.5-5.1); Sodium 129 mmol/L (135-145); eGFR > 60.00
--- NOTE | 2025-10-11 03:57 | PTCARENOTE ---
sys reviewed,weaning precedex
--- NOTE | 2025-10-11 05:00 | PTCARENOTE ---
precedex off, pt calm, eating a snack at this time
[2025-10-11] MEDS: DUONEB INH (07:47)
[2025-10-11] MEDS: PULMICORT INH (07:47)
[2025-10-11] MEDS: NICODERM TRANSDERMAL 14 MG TRANSDERM (08:06)
[2025-10-11] MEDS: MIRALAX 17 GRAMS PO ×2 (08:06→19:57)
[2025-10-11] MEDS: NSS (PRESERVATIVE FREE) 10 ML IV (08:07)
[2025-10-11] MEDS: SENOKOT 8.6 MG PO (08:07)
[2025-10-11] MEDS: PROTONIX IV 40 MG IV (08:07)
[2025-10-11 09:12] LABS: Nucleated Red Blood Cells % 0.2 % (-)
--- NOTE | 2025-10-11 09:30 | CM ---
Chart reviewed
Psych consult reviewed
Rec: inpatient admission 1:1 continues
VINNIE Mendoza at [facility]
If going home, send a referral to her
DC over 48 hours
[2025-10-11] MEDS: LIDOCAINE 4% PATCH 1 PATCH TOPICAL (10:17)
[2025-10-11] MEDS: LOW STRENGTH ASPIRIN 81 MG PO (10:18)
[2025-10-11] MEDS: CALCIUM GLUCONATE 100 IV (11:21)
[2025-10-11] MEDS: CYMBALTA DELAYED RELEASE 40 MG PO (11:21)
--- NOTE | 2025-10-11 11:21 | CM ---
Consult received. Reviewed chart
Psych consult done and following for dcp:
CM is available for dcp needs and will continue to follow up
--- NOTE | 2025-10-11 11:33 | PTCARENOTE ---
went in room to give pt his cymbalta and he was requesting klonopin. he was made aware this wasn't due until 4pm. he became agitated/angry and insisted that 'the girl' told me I was getting it with lunch and after taking his cymbalta, threw empty
medicine cup to floor. When I told him that this behavior was inappropriate and unacceptable, pt began to yell that he could just sign himself out. Made aware that this was not necessarily true given his admission was for suicide attempt. Pt did
eventually settle then became irritated again when his lunch came and coffee was not on tray which he ordered. Maintained on 1:1 for safety.
--- NOTE | 2025-10-11 11:51 | W.PN.HOSP.TC ---
Today's Communication/Plan
-
Psychiatric assessment and planning
Continue antibiotics for catheter associated UTI. Plan is to transition to oral regimen over the next 24 hours once blood culture available.
PT assessment.
Follow hyponatremia while on free water restriction
Assessment / Plan
Assessment / Plan
Impression
VDRF.
Suicidal attempt with ingestion of multiple home medications.
Transient hypotension secondary to sedation
Fever
Suspected catheter associated UTI
Acute on chronic hyponatremia
Other conditions
COPD.
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
Chronic anemia.
Plan
Ventilator dependent respiratory failure secondary to intentional overdose with multiple substances.
Stable respiratory status and patient extubated on 10/10.
Imaging with no evidence of focal infiltrate.
Blood gas with no evidence of CO2 retention
Continue aspiration precautions.
Diet has been advanced with speech assessment
Transient hypotension without evidence of sepsis or septic shock and possibly related to sedation.
Improved with IV fluids.
Continue monitoring.
Acute on chronic hyponatremia.
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
Continue water restriction
Follow BMP.
Monitor closely on resumed SSRI (Cymbalta)
Intentional overdose with multiple medications.
History of anxiety and depression
Suspect benzodiazepine dependence while on clonazepam standing dose at 0.5 mg 3 times daily.
Preadmission regimen including duloxetine, clonazepam, gabapentin
Psychiatry input appreciated
Continue suicidal precautions
Resumed Cymbalta and Klonopin.
COPD with no evidence of exacerbation.
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
CAD with history of PCI.
Resume aspirin, statin,
Catheter associated UTI
Chronic indwelling Uribe catheter exchanged on admission.
Urine culture with sensitive Klebsiella
Blood cultures pending.
Empiric ceftriaxone initiated on 10/10
Continue Flomax
Anticipated Discharge: 24 - 48 hours
Subjective/Interval History
-
Date of Service: October 11, 2025
Objective Data
-
Labs:
Laboratory Results
10/11/25 10/11/25
03:04 16:00
WBC 8.6
Hgb 9.0 L
Hct 28.0 L
Plt Count 149 D
Sodium 129 L Pending
Potassium 4.3 Pending
Chloride 100 Pending
Carbon Dioxide 24 Pending
BUN 13 Pending
Creatinine 0.5 L Pending
Glucose 100 H Pending
Calcium 8.0 L Pending
Vital Signs:
Vital Signs
Temp Pulse Resp BP Pulse Ox
100.0 F 87 24 134/61 96
10/11/25 07:52 10/11/25 09:00 10/11/25 09:00 10/11/25 09:00 10/11/25 09:30
I&O
10/10/25 10/11/25 10/12/25
06:59 06:59 06:59
Intake Total 5090.1 / 5229.3 4049.6 / 4049.6 600 / 600
Output Total 2210 / 2385 4275 / 4275 800 / 800
Balance 2880.1 / 2844.3 -225.4 / -225.4 -200 / -200
Physical Exam
-
General: Well Developed and No Apparent Distress
HEENT: Normocephalic, Atraumatic and Moist Mucous Membranes
Respiratory: Clear to Auscultation
Cardiac: Regular Rhythm and S1/S2; Negative Murmur, Rub or Gallop
GI: Soft, Nontender, Nondistended and Normal Bowel Sounds; Negative Organomegaly
Rectal: Deferred by Provider
Musculoskeletal: No Clubbing, No Cyanosis and No Edema
Skin: Negative Rash
Neuro: Nonfocal/Grossly Intact
--- NOTE | 2025-10-11 13:02 | W.PN.INTV ---
Today's Communication / Plan
Recommendations
- Weaned off Precedex
- Start fluid restriction, 1200 mL/day, check urine sodium and urine osmolality
- Serial BMP to monitor hyponatremia
- Patient stable for transfer out of ICU
- Survey Research Associate service will sign off, please call as needed
Assessment
-
Assessment: 75-year-old male with a past medical history of suspected COPD, history of smoking, BPH with urinary retention, anxiety/depression, history of alcohol use disorder, peripheral neuropathy, history of suicidal behavior, and CAD with
history of NV who presents with suicide attempt. Patient recently lost his and felt depressed. He stated that he took all of the medications including his gabapentin, Flexeril, doxepin, clonazepam, and duloxetine. Patient arrived to the ER
with blister packs and medications where all the doses were missing. Many of the blister packs were missing as well. Initially he was afebrile, pulse rate 85, respiratory rate 20, BP 122/79 and saturating 97% on room air. Toxicology
called and activated charcoal was given. He did end up desaturating into the mid 80s and was intubated for airway protection. Initial labs showed Hb 12.3, WBC 12, absolute eosinophil count of 800, urinalysis with positive nitrites, +2 leukocyte
esterase, with urine toxicology negative and alcohol level negative. CXR showed no acute disease of the chest. Patient was started on propofol and admitted to the ICU for further care. Survey Research Associate service consulted for additional
management/recommendations.
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
x 3, colonic arterial rupture s/p surgical correction, history of GI bleed, history of pancreatitis, bipolar disorder, depression
Assessment and plan
#1. Acute hypoxic respiratory failure in the setting of suicide attempt, probably medication overdose
- S/p intubation and mechanical ventilation in the setting of hypoxia and inability to protect airway
- 10/10, tolerated SAT/SBT well, stopped all sedation, extubated to nasal cannula, doing well since.
#2. Suicide attempt with ingestion of multiple home medications
- Status post activated charcoal emergency room
- Intubated for airway protection, extubated 10/10
- Psychiatric consult, 1: sitter in place
#3. Hypotension which is likely sedation related
- Resolved since off sedation and extubated.
#4. Abnormal urinalysis with concern for UTI
-IV Rocephin, await cultures
#5. History of COPD
- on Breo as an outpatient
- Switch to Symbicort.
#6. Hyponatremia.
- Start fluid restriction 1200 ml per day
- Check urine sodium and osmolality
- ? SSRI related vs Polydipsia.
Other medical diagnoses:
- Elevated eosinophil count (peak count of 1100 and November 2016; levels are now 800 on admission)
- H/o CAD s/p PCI
- Chronic anemia
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
- Anxiety. Resume clonazepam. Requiring Precedex postextubation
Patient stable for transfer out of ICU. Survey Research Associate service will sign off.
Critical Care time 42 mins -- The patient is admitted for acute critical illness for the treatment of vital organ failure and/or prevention of further life-threatening conditions. Total care includes time spent in review of history, physical exam,
medications, hemodynamic/ventilator parameters, laboratory data, imaging and discussion with house staff, pharmacy, respiratory therapy, station operator, and nursing.
Subjective Dataa
Subjective Data
Date of Service:
Date of Service: October 11, 2025
Subjective:
Patient comfortably sitting in bed in no acute distress.
Review of Systems
Genitourinary: Other (No new symptoms reported)
Objective Data
Data Reviewed
Vital Signs / I&O / Oxygen:
Vital Signs
Temp Pulse Resp BP Pulse Ox
100.3 F 87 24 134/61 96
10/11/25 12:04 10/11/25 09:00 10/11/25 09:00 10/11/25 09:00 10/11/25 09:30
Intake and Output
10/10/25 10/11/25 10/12/25
06:59 06:59 06:59
Intake Total 5090.1 / 5229.3 4049.6 / 4049.6 600 / 600
Output Total 2210 / 2385 4275 / 4275 800 / 800
Balance 2880.1 / 2844.3 -225.4 / -225.4 -200 / -200
SaO2 [CPAP/PSV] 99
SaO2 [A/C] 95
SaO2 96
Nasal Cannula flow liters per 2
minute
Physical Exam
General: Comfortable
HEENT: Normocephalic
Cardiovascular: S1-S2
Respiratory: Non-Labored Respirations
GI: Soft and Non Distended
Neurology: Awake and Alert
Skin: Warm
Labs/Micro/Reports
Lab Data
10/11/25 03:04
Microbiology
10/10/25 11:38 Blood/Venous Blood Culture - Preliminary
No Growth in 24 hours- Final report to follow
10/10/25 11:48 Blood/Venous Blood Culture - Preliminary
No Growth in 24 hours- Final report to follow
10/08/25 16:22 Urine Urine Culture - Final
Klebsiella pneumoniae
[2025-10-11 17:03] LABS: Blood Urea Nitrogen 11 mg/dl (9-20); Calcium 8.6 mg/dl (8.4-10.2); Carbon Dioxide 28 mmol/L (22-30); Chloride 101 mmol/L (98-107); Estimated Creatinine Clearance 112 ml/min; Glucose 105 mg/dl (70-99); Potassium 4.1 mmol/L (3.5-5.1); Sodium 133 mmol/L (135-145); eGFR > 60.00
[2025-10-11] MEDS: LIPITOR 20 MG PO (17:03)
[2025-10-11] MEDS: LOVENOX 40 MG SC (17:03)
--- NOTE | 2025-10-11 17:19 | PTCARENOTE ---
pt being tx to 332. Report given to Kyra who will assume care of pt upon tx. Belongings from room including cane sent with pt as well as 1:1. Case management made aware of pt request to [facility] for [facility]pt.
[2025-10-11] MEDS: SYMBICORT 160/4.5 MCG INHALER 2 PUFF INH (19:32)
[2025-10-11] MEDS: REMOVE LIDOCAINE PATCH 1 PATCH REMOVE (19:48)
[2025-10-11] MEDS: SENOKOT PO (19:51)
--- NOTE | 2025-10-11 21:43 | W.PN.UPDATE ---
Update Note
Progress Note Update
pt seen in ICU this afternoon. angry that he is not getting more Klonpin, angry that I think he needs to be in the hospital. wants to go home, but aware that 302 is on the table if he does not agree. 'I'll only go to [facility]'
I eplain that I think that would be best for him, tells me he does not care what I think
[2025-10-11] MEDS: ROCEPHIN 2000 MG IV (23:10)
[2025-10-11] MEDS: STERILE WATER FOR INJECTION 20 ML IV (23:10)
[2025-10-12] MEDS: TORADOL 10 MG IV (01:54)
[2025-10-12 06:00] VITALS: BMI 21.4
[2025-10-12 06:25] LABS: Hematocrit 33.1 % (39.0-52.0); Hemoglobin 10.6 g/dL (13.0-18.0); Mean Corp Hgb Conc. 32.0 g/dL (33.0-37.0); Mean Corpuscular Volume 90.9 fL (80.0-94.0); Platelet Count 205 10^3/uL (130-400); Red Cell Dist. Width 21.2 % (11.5-14.5)
[2025-10-12 06:31] LABS: Blood Urea Nitrogen 10 mg/dl (9-20); Calcium 8.3 mg/dl (8.4-10.2); Carbon Dioxide 28 mmol/L (22-30); Chloride 101 mmol/L (98-107); Estimated Creatinine Clearance 112 ml/min; Glucose 102 mg/dl (70-99); Potassium 4.1 mmol/L (3.5-5.1); Sodium 133 mmol/L (135-145); eGFR > 60.00
[2025-10-12 07:14] VITALS: BP 156/79
[2025-10-12] MEDS: SYMBICORT 160/4.5 MCG INHALER 2 PUFF INH ×2 (07:31→19:21)
[2025-10-12] MEDS: LIDOCAINE 4% PATCH 1 PATCH TOPICAL (07:52)
[2025-10-12] MEDS: LOW STRENGTH ASPIRIN 81 MG PO (07:52)
[2025-10-12] MEDS: CYMBALTA DELAYED RELEASE 40 MG PO (07:53)
[2025-10-12] MEDS: NICODERM TRANSDERMAL 14 MG TRANSDERM (07:53)
[2025-10-12] MEDS: MIRALAX 17 GRAMS PO (07:53)
[2025-10-12] MEDS: SENOKOT 8.6 MG PO (07:53)
[2025-10-12 08:32] LABS: Nucleated Red Blood Cells % 0 % (-)
[2025-10-12] MEDS: TYLENOL 650 MG PO (11:15)
--- NOTE | 2025-10-12 11:25 | WOUNDNOTE ---
[facility] RN note: Patient seen during prevention rounds. Patient admitted with stage 1 sacral pressure injury. He can turn self in bed and gets out of bed. Sacral shaped silicone border foam changed. Skin on heels blanchable mild red and intact.
Protective foam applied to heels by RN educator Sophia. Air chair cushion given. Instructed patient to lie side to side while not eating to prevent worsening of his stage 1 pressure injury. Patient lying on his L side currently. Heels off bed with
pillow. Instructed patient to take air chair cushion when discharged. Patient reports a good appetite. Patient with 1:1 currently. Discussed with KAREEM Regan.
--- NOTE | 2025-10-12 12:22 | W.PN.HOSP.TC ---
Today's Communication/Plan
-
Medically optimized for placement to inpatient psychiatric facility
Assessment / Plan
Assessment / Plan
Impression
VDRF.
Suicidal attempt with ingestion of multiple home medications.
Transient hypotension secondary to sedation
Fever
Suspected catheter associated UTI
Acute on chronic hyponatremia
Other conditions
COPD.
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
Chronic anemia.
Plan
Ventilator dependent respiratory failure secondary to intentional overdose with multiple substances.
Stable respiratory status and patient extubated on 10/10.
Imaging with no evidence of focal infiltrate.
Blood gas with no evidence of CO2 retention
Continue aspiration precautions.
Diet has been advanced with speech assessment
Transient hypotension without evidence of sepsis or septic shock and possibly related to sedation.
Improved with IV fluids.
Continue monitoring.
Acute on chronic hyponatremia.
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
Sodium stable at 133
Continue water restriction
Follow BMP.
Monitor closely on resumed SSRI (Cymbalta)
Intentional overdose with multiple medications.
History of anxiety and depression
Suspect benzodiazepine dependence while on clonazepam standing dose at 0.5 mg 3 times daily.
Preadmission regimen including duloxetine, clonazepam, gabapentin
Psychiatry input appreciated
Continue suicidal precautions
Resumed Cymbalta and Klonopin.
COPD with no evidence of exacerbation.
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
CAD with history of PCI.
Resume aspirin, statin,
Catheter associated UTI
Chronic indwelling Uribe catheter exchanged on admission.
Urine culture with sensitive Klebsiella
Blood cultures negative to date
Empiric ceftriaxone initiated on 10/10 and transition to Augmentin to complete 7-day course of therapy.
Continue Flomax
Anticipated Discharge: Within 24 hours
Subjective/Interval History
-
Date of Service: October 12, 2025
Objective Data
-
Labs:
Laboratory Results
10/12/25
05:40
WBC 7.6
Hgb 10.6 L
Hct 33.1 L
Plt Count 205 D
Sodium 133 L
Potassium 4.1
Chloride 101
Carbon Dioxide 28
BUN 10
Creatinine 0.5 L
Glucose 102 H
Calcium 8.3 L
Vital Signs:
Vital Signs
Temp Pulse Resp BP Pulse Ox
98.3 F 60 16 156/79 97
10/12/25 07:14 10/12/25 07:35 10/12/25 07:35 10/12/25 07:14 10/12/25 07:35
I&O
10/11/25 10/12/25 10/13/25
06:59 06:59 06:59
Intake Total 4049.6 / 4049.6 1440 / 1440 900 / 900
Output Total 4275 / 4275 4300 / 4300 100 / 100
Balance -225.4 / -225.4 -2860 / -2860 800 / 800
Physical Exam
-
General: Well Developed and No Apparent Distress
HEENT: Normocephalic, Atraumatic and Moist Mucous Membranes
Respiratory: Clear to Auscultation
Cardiac: Regular Rhythm and S1/S2; Negative Murmur, Rub or Gallop
GI: Soft, Nontender, Nondistended and Normal Bowel Sounds; Negative Organomegaly
Rectal: Deferred by Provider
Musculoskeletal: No Clubbing, No Cyanosis and No Edema
Skin: Negative Rash
Neuro: Nonfocal/Grossly Intact
[2025-10-12] MEDS: AUGMENTIN 875 MG/125 MG 1 TABLET PO ×2 (12:23→20:15)
--- NOTE | 2025-10-12 13:16 | W.PN.UPDATE ---
Update Note
Progress Note Update
patient seen chart reviewed. discussed with nursing. the patient is well known to me from long conversations in the past. the central trauma of his life currently is the of his of decades suddenly while he was in the hospital. he was
here today bc of overdose. he is not convinced he really wanted to and at this point is agreeable to psych hospital. he also says he is not suicidal and would never hurt self while here so will dc one to one. he wants his doxepin back. he says
it is the only medication which ever helped him to sleep. it is a med that is dangerous in overdose. would try just ten mg. discussed with cm patient would like to go to [facility]. she will assess whether it is possible. will follow
--- NOTE | 2025-10-12 14:00 | PTCARENOTE ---
Psych saw pt, Dr Pelaez recommended discontinuing the 1:1. Dr Tucker notified.
[2025-10-12 15:00] VITALS: BP 157/72
[2025-10-12] MEDS: MILK OF MAGNESIA 60 ML PO (15:49)
[2025-10-12] MEDS: LOVENOX 40 MG SC (17:43)
[2025-10-12] MEDS: LIPITOR 20 MG PO (17:43)
[2025-10-12] MEDS: SENOKOT PO ×2 (20:15→20:19)
[2025-10-12] MEDS: REMOVE LIDOCAINE PATCH 1 PATCH REMOVE (20:15)
[2025-10-12] MEDS: SINEQUAN 10 MG PO (21:05)
[2025-10-12 23:00] VITALS: BP 126/68
[2025-10-13] MEDS: TYLENOL 650 MG PO (03:00)
[2025-10-13 07:00] VITALS: BP 158/73
[2025-10-13] MEDS: SYMBICORT 160/4.5 MCG INHALER 2 PUFF INH ×2 (07:25→19:20)
[2025-10-13] MEDS: NICODERM TRANSDERMAL 14 MG TRANSDERM (07:38)
[2025-10-13] MEDS: LIDOCAINE 4% PATCH 1 PATCH TOPICAL (07:39)
[2025-10-13] MEDS: LOW STRENGTH ASPIRIN 81 MG PO (07:39)
[2025-10-13] MEDS: MIRALAX 17 GRAMS PO (07:39)
[2025-10-13] MEDS: SENOKOT 8.6 MG PO ×2 (07:40→21:13)
[2025-10-13] MEDS: AUGMENTIN 875 MG/125 MG 1 TABLET PO ×2 (07:40→21:13)
[2025-10-13] MEDS: CYMBALTA DELAYED RELEASE 40 MG PO (07:40)
--- NOTE | 2025-10-13 10:35 | PN.CDI ---
CDI
- -
CDI:
Physician Documentation Request
Admit Date: 10/08/25 16:14
Dear Doctor,
Patient admitted for overdose.
Clinical panel nursing documentation wound care
10/12/25
11:25 10/12/25
11:25
Pressure injury appearance (Stage 1) [Present on admission Sacrum] Non blanchable
red Non blanchable
red
Pressure injury stage [Present on admission Sacrum] Stage 1 Stage 1
Surrounding Skin - [Present on admission Sacrum] Dry and intact
Treatment provided [Present on admission Sacrum] Silicone border
foam Cleansed with
saline
Silicone border
foam
Physician documentation of the type and location of wounds is required for compliant documentation. Based on the above clinical findings and your assessment, please provide the following in your progress note:
1. Location of the ulcer/wound, including laterality.
2. Type (etiology) of ulcer/wound:
- Diabetic ulcer
- Arterial (ischemic) ulcer
- Traumatic wound
- Venous stasis ulcer
- Pressure (decubitus) ulcer
- Non-healing surgical wound
- Other
- Unable to determine
3. For a non-pressure ulcer, please indicate the depth/severity:
- Limited to the breakdown of skin
- With fat layer exposed
- With necrosis of muscle
- With necrosis of bone
- Other
- Unable to determine
4. If a pressure ulcer, please also include the stage* of the ulcer:
- Stage 1 - Skin intact, non-blanchable redness
- Stage 2 - Partial thickness loss of dermis, includes intact or open blister
- Stage 3 - Full thickness tissue not including bone, tendon or muscle
- Stage 4 - Full thickness tissue loss, including exposed bone, tendon or muscle
- Unstageable - Full thickness loss in which the base of the ulcer is covered by slough (yellow, stinson, finney, green or brown) and/or eschar (stinson, brown or black) in the wound bed.
- Unable to determine
Use of terms such as suspected, likely, concern for, or probable (associated with a specific diagnosis that is being evaluated, monitored, or treated as if it exists) are acceptable and can be coded in the inpatient setting, when documented at the
time of discharge.
Thank you,
Jane Matthews RN, BSN
CDI Specialist
Available via [place] text
Please use your independent medical judgment in providing your response.
*Source: National Pressure Ulcer Advisory Panel (NPUAP)
--- NOTE | 2025-10-13 10:55 | W.PN.UPDATE ---
Update Note
Progress Note Update
patient seen chart reviewed. discussed with nursing patient is for tf to psych but a bed is not available at this moment. he is most interested in [facility]. he is struggling with nicotine craving. told me he 'almost' made his way o/o hospital last
night bc he was dying for a cig. we discussed the negatives of smoking which he is aware of and have ordered two nicotine patches and supplemental nicorette gum. did not make any changes in his psych meds. he did have doxepin last night at a lower
dose and did not complain of insomnia. he looked more awake and alert his am and hygiene was good (hair combed, neatly shaved etc.)
[2025-10-13] MEDS: NICODERM TRANSDERMAL 21 MG TRANSDERM (11:28)
[2025-10-13] MEDS: NICORETTE 4 MG PO ×3 (11:28→21:43)
--- NOTE | 2025-10-13 13:59 | W.PN.HOSP.TC ---
Addendum entered and electronically signed by David Tucker MD 10/13/25 14:15:
Resume Neurontin
Original Note:
Today's Communication/Plan
-
Discharge planing
Assessment / Plan
Assessment / Plan
Impression
VDRF.
Suicidal attempt with ingestion of multiple home medications.
Transient hypotension secondary to sedation
Fever
Suspected catheter associated UTI
Acute on chronic hyponatremia
Sacral pressure injury stage I present on admission
Other conditions
COPD.
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
Chronic anemia.
Plan
Ventilator dependent respiratory failure secondary to intentional overdose with multiple substances.
Stable respiratory status and patient extubated on 10/10.
Imaging with no evidence of focal infiltrate.
Blood gas with no evidence of CO2 retention
Continue aspiration precautions.
Diet has been advanced with speech assessment
Transient hypotension without evidence of sepsis or septic shock and possibly related to sedation.
Improved with IV fluids.
Continue monitoring.
Acute on chronic hyponatremia.
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
Sodium stable at 133
Continue water restriction
Follow BMP.
Monitor closely on resumed SSRI (Cymbalta)
Intentional overdose with multiple medications.
History of anxiety and depression
Suspect benzodiazepine dependence while on clonazepam standing dose at 0.5 mg 3 times daily.
Preadmission regimen including duloxetine, clonazepam, gabapentin
Psychiatry input appreciated
Continue suicidal precautions
Resumed Cymbalta and Klonopin.
COPD with no evidence of exacerbation.
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
CAD with history of PCI.
Resume aspirin, statin,
Catheter associated UTI
Chronic indwelling Uribe catheter exchanged on admission.
Urine culture with sensitive Klebsiella
Blood cultures negative to date
Empiric ceftriaxone initiated on 10/10 and transition to Augmentin to complete 7-day course of therapy through 10/17
Continue Flomax
Anticipated Discharge: Within 24 hours
Subjective/Interval History
-
Date of Service: October 13, 2025
Objective Data
-
Vital Signs:
Vital Signs
Temp Pulse Resp BP Pulse Ox
98.4 F 63 16 158/73 95
10/13/25 07:00 10/13/25 07:29 10/13/25 07:29 10/13/25 07:00 10/13/25 07:29
I&O
10/12/25 10/13/25 10/14/25
06:59 06:59 06:59
Intake Total 1440 / 1440 2520 / 2520
Output Total 4300 / 4300 3950 / 3950
Balance -2860 / -2860 -1430 / -1430
Physical Exam
-
General: Well Developed and No Apparent Distress
HEENT: Normocephalic, Atraumatic and Moist Mucous Membranes
Respiratory: Clear to Auscultation
Cardiac: Regular Rhythm and S1/S2; Negative Murmur, Rub or Gallop
GI: Soft, Nontender, Nondistended and Normal Bowel Sounds; Negative Organomegaly
Rectal: Deferred by Provider
Musculoskeletal: No Clubbing, No Cyanosis and No Edema
Skin: Negative Rash
Neuro: Nonfocal/Grossly Intact
[2025-10-13 15:15] VITALS: BP 154/76
--- NOTE | 2025-10-13 17:18 | CM ---
Repeated calls to [facility].
Called [phone] spoke wit Taylor no call back .
Called [phone] transferred to wrong number.
Called [phone] spoke with Clementine decker instructed to fax clinical to [phone].
Awaiting determination .
PLAN To [facility] inpatient if accepted
[2025-10-13] MEDS: LOVENOX 40 MG SC (17:24)
[2025-10-13] MEDS: LIPITOR 20 MG PO (17:24)
[2025-10-13] MEDS: REMOVE LIDOCAINE PATCH 1 PATCH REMOVE (21:14)
[2025-10-13] MEDS: SINEQUAN 10 MG PO (21:14)
[2025-10-13 23:00] VITALS: BP 138/69
[2025-10-14] MEDS: NICORETTE 4 MG PO ×4 (03:39→21:17)
[2025-10-14] MEDS: TYLENOL 650 MG PO (03:39)
[2025-10-14] MEDS: SYMBICORT 160/4.5 MCG INHALER 2 PUFF INH ×2 (07:21→19:33)
[2025-10-14 08:00] VITALS: BP 127/62
[2025-10-14] MEDS: LIDOCAINE 4% PATCH 1 PATCH TOPICAL (08:36)
[2025-10-14] MEDS: MIRALAX 17 GRAMS PO (08:36)
[2025-10-14] MEDS: LOW STRENGTH ASPIRIN 81 MG PO (08:36)
[2025-10-14] MEDS: CYMBALTA DELAYED RELEASE 40 MG PO (08:37)
[2025-10-14] MEDS: SENOKOT 8.6 MG PO ×2 (08:38→21:16)
[2025-10-14] MEDS: AUGMENTIN 875 MG/125 MG 1 TABLET PO ×2 (08:38→21:15)
[2025-10-14] MEDS: NICODERM TRANSDERMAL 14 MG TRANSDERM (08:38)
[2025-10-14] MEDS: NICODERM TRANSDERMAL 21 MG TRANSDERM (08:41)
[2025-10-14] MEDS: ROXICODONE 5 MG PO ×3 (09:46→21:20)
--- NOTE | 2025-10-14 12:39 | W.PN.UPDATE ---
Addendum entered and electronically signed by Jelena Pelaez MD 10/14/25 12:48:
spoke with cm. will order ot / pt consults re snf
Original Note:
Update Note
Progress Note Update
patient seen chart reviewed. spoke with nursing. mr parry was pleasant today. he did admit he had some pain and talked about his struggles with back pain and 'neuropathy' pain meds had been ordered. he has PT in the home twice weekly. we talked
about how it could be beneficial to him to do the exercises more than twice weekly. perhaps once or twice weekly a simple routine his PT could teach him to do on his own. he said he did not know if he could be that disciplined. it is my impression
at this time that patient does NOT need in patient for psychiatry. mood seems reasonable at this point. he is NOT suicidal. he said he wojuld like to be with family for xmas . to this point he did not feel he could be w family bc of his grief re
. now feels he is ready to take that step. so as far as i am concerned he could be dc to snf if that is appropriate given his lof and then to home. did not make changes in his meds.
--- NOTE | 2025-10-14 14:56 | PTCARENOTE ---
Assumed care of patient at 1330. Assessment remains the same, patient with pain in lower back PRN medication given appropriately, see MAR. Plan of care ongoing.
[2025-10-14 15:00] VITALS: BP 129/69
[2025-10-14 15:18] VITALS: BP 132/65; PULSE 59; O2SAT 96
--- NOTE | 2025-10-14 16:51 | W.PN.HOSP.TC ---
Today's Communication/Plan
-
Psychiatry lifted suicidal precautions
PT assessment with likely SNF rehab discharge
Complete course of antibiotics for catheter associated UTI as outlined
Assessment / Plan
Assessment / Plan
Impression
VDRF.
Suicidal attempt with ingestion of multiple home medications.
Transient hypotension secondary to sedation
Fever
Suspected catheter associated UTI
Acute on chronic hyponatremia
Sacral pressure injury stage I present on admission
Other conditions
COPD.
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
Chronic anemia.
Plan
Ventilator dependent respiratory failure secondary to intentional overdose with multiple substances.
Stable respiratory status and patient extubated on 10/10.
Imaging with no evidence of focal infiltrate.
Blood gas with no evidence of CO2 retention
Continue aspiration precautions.
Diet has been advanced with speech assessment
Transient hypotension without evidence of sepsis or septic shock and possibly related to sedation.
Improved with IV fluids.
Continue monitoring.
Acute on chronic hyponatremia.
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
Sodium stable at 133
Continue water restriction
Follow BMP.
Monitor closely on resumed SSRI (Cymbalta)
Intentional overdose with multiple medications.
History of anxiety and depression
Suspect benzodiazepine dependence while on clonazepam standing dose at 0.5 mg 3 times daily.
Preadmission regimen including duloxetine, clonazepam, gabapentin
Psychiatry input appreciated
Denies any suicidal ideation currently. Lifted suicidal precautions
COPD with no evidence of exacerbation.
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
CAD with history of PCI.
Resume aspirin, statin,
Catheter associated UTI
Chronic indwelling Uribe catheter exchanged on admission.
Urine culture with sensitive Klebsiella
Blood cultures negative to date
Empiric ceftriaxone initiated on 10/10 and transition to Augmentin to complete 7-day course of therapy through 10/17
Continue Flomax
Anticipated Discharge: Within 24 hours
Subjective/Interval History
-
Date of Service: October 14, 2025
Objective Data
-
Vital Signs:
Vital Signs
Temp Pulse Resp BP Pulse Ox
98.6 F 58 24 129/69 96
10/14/25 15:00 10/14/25 15:00 10/14/25 15:00 10/14/25 15:00 10/14/25 15:00
I&O
10/13/25 10/14/25 10/15/25
06:59 06:59 06:59
Intake Total 2520 / 2520 1440 / 1440
Output Total 3950 / 3950 3220 / 3220
Balance -1430 / -1430 -1780 / -1780
Physical Exam
-
General: Well Developed and No Apparent Distress
HEENT: Normocephalic, Atraumatic and Moist Mucous Membranes
Respiratory: Clear to Auscultation
Cardiac: Regular Rhythm and S1/S2; Negative Murmur, Rub or Gallop
GI: Soft, Nontender, Nondistended and Normal Bowel Sounds; Negative Organomegaly
Rectal: Deferred by Provider
Musculoskeletal: No Clubbing, No Cyanosis and No Edema
Skin: Negative Rash
Neuro: Nonfocal/Grossly Intact
--- NOTE | 2025-10-14 17:15 | CM ---
PLAN of care changed. Psychiatry said patient does not need inpatient psychiatry .
Pt needs SNF.
PT OT ordered .
Pt agreeable to SNF at [facility]Pt
Will need to offer SNF picks and enter in care port
PLAN To SNF after accepted
[2025-10-14] MEDS: LOVENOX 40 MG SC (17:38)
[2025-10-14] MEDS: LIPITOR 20 MG PO (17:38)
[2025-10-14] MEDS: SINEQUAN 10 MG PO (21:16)
[2025-10-14] MEDS: REMOVE LIDOCAINE PATCH 1 PATCH REMOVE (21:16)
[2025-10-14 23:40] VITALS: BP 101/57
[2025-10-15] MEDS: ROXICODONE 5 MG PO ×3 (04:10→13:13)
[2025-10-15] MEDS: NICORETTE 4 MG PO (05:42)
[2025-10-15 07:00] VITALS: BP 144/78
[2025-10-15] MEDS: SYMBICORT 160/4.5 MCG INHALER 2 PUFF INH (07:45)
[2025-10-15] MEDS: TYLENOL 650 MG PO ×2 (09:00→13:14)
[2025-10-15] MEDS: SENOKOT 8.6 MG PO (09:00)
[2025-10-15] MEDS: CYMBALTA DELAYED RELEASE 40 MG PO (09:00)
[2025-10-15] MEDS: LIDOCAINE 4% PATCH 1 PATCH TOPICAL (09:00)
[2025-10-15] MEDS: AUGMENTIN 875 MG/125 MG 1 TABLET PO (09:00)
[2025-10-15] MEDS: LOW STRENGTH ASPIRIN 81 MG PO (09:01)
[2025-10-15] MEDS: MIRALAX 17 GRAMS PO (09:01)
[2025-10-15] MEDS: NICODERM TRANSDERMAL 21 MG TRANSDERM (09:12)
[2025-10-15] MEDS: NICODERM TRANSDERMAL 14 MG TRANSDERM (09:12)
[2025-10-15 12:12] VITALS: BP 127/63
[2025-10-15 12:18] VITALS: BP 129/65
--- NOTE | 2025-10-15 12:27 | W.PN.HOSP.TC ---
Addendum entered and electronically signed by Miguel Angel Miller MD 10/15/25 13:00:
Also discussed with patient's son over the phone in detail. Discussed with patient's son also named Jun�physical therapy and Occupational Therapy recommending rehab. Updated patient's son about hospitalization and rehab recommendation.
Patient stating to go home against everyone's recommendation. Son stated patient is adamant in his decision and family will not be able to convince him otherwise. Son would want to respect his father decision. Stated to son patient remains at
high risk of falls leading to fracture which was also stated to the patient. patients that he understand his risk of falls and still wants to go home. States he has cane and walker. Does not want to go to rehab he explicitly said that. Patient
is able to make his own decision. Will discharge home.
More than 30 minutes spent in discharge including
Final examination of the patient
Summarizing hospital stay
Instructions for continuing care to all relevant caregivers
Preparation of discharge records, prescriptions, and referral forms
Total time spent (in minutes): 55
Original Note:
Today's Communication/Plan
-
Agree with antibiotic
Continue with Uribe catheter
Continue with Klonopin
Await placement to SNF
Assessment / Plan
Assessment / Plan
Impression
VDRF.
Suicidal attempt with ingestion of multiple home medications.
Transient hypotension secondary to sedation
Fever
Suspected catheter associated UTI
Acute on chronic hyponatremia
Sacral pressure injury stage I present on admission
Other conditions
COPD.
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
Chronic anemia.
Plan
Stable respiratory status and patient extubated on 10/10.
Imaging with no evidence of focal infiltrate.
Blood gas with no evidence of CO2 retention
Continue aspiration precautions.
Diet has been advanced with speech assessment
stable on room air
Transient hypotension without evidence of sepsis or septic shock and possibly related to sedation.
off IVF. BP stable.
Continue monitoring.
Acute on chronic hyponatremia.
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
Sodium stable at 133
Continue water restriction
Follow BMP.
Monitor closely on resumed SSRI (Cymbalta)
Intentional overdose with multiple medications.
History of anxiety and depression
Suspect benzodiazepine dependence while on clonazepam standing dose at 0.5 mg 3 times daily.
Preadmission regimen including duloxetine, clonazepam, gabapentin
Psychiatry input appreciated
Denies any suicidal ideation currently. Lifted suicidal precautions. Psych correspondence from 10/14/2024 noted. Patient is not suicidal.
COPD with no evidence of exacerbation.
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
CAD with history of PCI.
Resume aspirin, statin,
Catheter associated UTI
Chronic indwelling Uribe catheter exchanged on admission.
Urine culture with sensitive Klebsiella
Blood cultures negative to date
Empiric ceftriaxone initiated on 10/10 and transition to Augmentin to complete 7-day course of therapy through 10/17
Continue Flomax
PT recs SNF. CM aware. Await placement. Patient was explained going to rehab was recommended. Patient prefers to go home however, recommended rehab stay. Patient might leave AMA.
Anticipated Discharge: > 48 hours
Subjective/Interval History
-
Date of Service: October 15, 2025
denies any si
wants to go home
Objective Data
-
Vital Signs:
Vital Signs
Temp Pulse Resp BP Pulse Ox
99.8 F 85 16 144/78 99
10/15/25 07:00 10/15/25 07:48 10/15/25 07:48 10/15/25 07:00 10/15/25 07:48
I&O
10/14/25 10/15/25 10/16/25
06:59 06:59 06:59
Intake Total 1440 / 1440 960 / 960
Output Total 3220 / 3220 1650 / 1650 1500 / 1500
Balance -1780 / -1780 -690 / -690 -1500 / -1500
Physical Exam
-
General: Well Developed and No Apparent Distress
HEENT: Normocephalic, Atraumatic and Moist Mucous Membranes
Respiratory: Clear to Auscultation
Cardiac: Regular Rhythm and S1/S2; Negative Murmur, Rub or Gallop
GI: Soft, Nontender, Nondistended and Normal Bowel Sounds; Negative Organomegaly
Rectal: Deferred by Provider
Genito-urinary: Uribe
Musculoskeletal: No Clubbing, No Cyanosis and No Edema
Skin: Negative Rash
Neuro: Awake and Nonfocal/Grossly Intact
Psych: Calm
--- NOTE | 2025-10-15 13:00 | W.DCSUMMARY ---
Discharge Summary
Discharge Data
Date of Admission: 10/08/25
Date of Discharge: 10/15/25
-
Pending Results: No
Hospital Course
75-year-old male with a past medical history of suspected COPD, history of smoking, BPH with urinary retention, anxiety/depression, history of alcohol use disorder, peripheral neuropathy, history of suicidal behavior, CAD with history of NC with
coronary stents x 3, colonic arterial rupture s/p surgical correction, history of GI bleed, history of pancreatitis, bipolar disorder, depression who presents with suicide attempt. Patient overdosed himself with Flexeril, clonazepam, gabapentin and
called the suicide hotline for help. The suicide hotline called 911 and the patient was brought to the ED. There are empty bottles of the above medications. Recent passing away of . Upon arrival to the ED he was awake, toxicology was called and
activated charcoal was given. However he desaturated around 15:00 and patient was intubated for airway protection. Patient was monitored in ICU. Tolerated SAT/SBT well, stopped all sedation, extubated to nasal cannula. Was weaned off oxygen. Passed
shallow eval and tolerating diet without any difficulty. Found to have UTI and IV rocephin and transitioned to Augmentin on discharge. Sodium was improved. Psych was following the patient along. Will monitor psych medications restarted. By course
of discussion with patient throughout hospitalization. Previous psych patient was deemed not suicidal anymore and no risk of suicidal anymore. Patient was eval by physical and Occupational Therapy. Rehab recommended SNF which patient refused.
Also discussed with patient's son over the phone in detail. Discussed with patient's son also named Jun�physical therapy and Occupational Therapy recommending rehab. Updated patient's son about hospitalization and rehab recommendation.
Patient stating to go home against everyone's recommendation. Son stated patient is adamant in his decision and family will not be able to convince him otherwise. Son would want to respect his father decision. Stated to son patient remains at
high risk of falls leading to fracture which was also stated to the patient. patients that he understand his risk of falls and still wants to go home. States he has cane and walker. Does not want to go to rehab he explicitly said that. Patient
is able to make his own decision. Will discharge home.
Discharge Plan
-
Patient Disposition: Home with Home Care
Discharge Diagnosis/Procedures: Ventilator dependent respiratory failure secondary to medication overdose
Chronic hyponatremia
COPD
CAD
Chronic bladder outlet obstruction with indwelling Uribe catheter
Catheter associated UTI
Moderate protein calorie malnutrition with BMI of 21
Condition: Good
Diet: Regular
Activity: With assistance and As tolerated
Driving Restrictions: Not until seen by your Dr
Other Services: VN
Activity Restrictions/Additional Instructions:
Barrier ointment (i.e. Desitin) to sacral/coccyx twice a day (apply OTC 2% miconazole powder prior to barrier ointment as needed for yeast rash).
Pressure redistributing chair cushion (i.e. Air chair cushion).
Elevate heels off bed with pillow/s.
Referrals:
UNKNOWN - PT NOT,INTERVIEWE [Family Provider]
Prescriptions:
New
amoxicillin-pot clavulanate 875-125 mg Tablet
1 tab PO Q12 Qty: 6 0RF
polyethylene glycol 3350 17 gram Powder In Packet
17 g PO DAILY Qty: 30 0RF
doxepin 10 mg Capsule
10 mg PO HS Qty: 30 0RF
nicotine 21 mg/24 hr Patch 24 Hour
21 mg transdermal DAILY Qty: 30 0RF
duloxetine 20 mg Capsule,Delayed Release(Dr/Ec)
40 mg PO DAILY Qty: 60 0RF
Continued
gabapentin 300 mg Capsule
300 mg PO TID
smfhzedvqpmb-agvxpogs-uxjeaj Tablet
1 tab PO DAILY
fluticasone furoate-vilanterol [Breo Ellipta] 100-25 mcg/dose Blister With Device
1 inh INHALATION DAILY
ferrous sulfate 325 mg (65 mg iron) tablet
325 mg PO DAILY Qty: 30 0RF
atorvastatin 20 mg tablet
20 mg PO HS
aspirin 81 mg tablet,delayed release (DR/EC)
81 mg PO DAILY
albuterol sulfate 90 mcg/actuation HFA aerosol inhaler
2 puff INHALATION Q6HPRN PRN (Reason: SOB)
clonazepam 0.5 mg tablet
0.5 mg PO TID@08,11,16
tamsulosin 0.4 mg capsule
0.4 mg PO DAILY
Discontinued
sennosides [senna] 8.6 mg tablet
8.6 mg PO BID Qty: 30 0RF
cyclobenzaprine 5 mg tablet
5 mg PO BIDPRN PRN (Reason: Muscle spasms)
duloxetine 60 mg capsule,delayed release(DR/EC)
60 mg PO DAILY
Discharge Orders:
Discharge Patient (As Directed); Ordered 10/15/25
Ordered By: Miguel Angel Miller
Discharge Date and Time
Print Language: ALGERIAN
--- NOTE | 2025-10-15 14:53 | CM ---
patient seen at bedside
IMM explained & signed. In chart
refused SNF - wants home with [facility]
discharge
PLAN: Home, with [facility] Fax #: [phone]
son to transport
--- NOTE | 2025-10-15 14:55 | PTCARENOTE ---
The patient is AAOx3 pleasant, blunt but pleasant. has very dry sarcastic humor. The patient was stating that he is signing out ama no matter what. I did have a very long discussion with him about the nature of what brought him in with his
purposeful intentful act of over medicating himself. he stated to me that he is a changed man. he cannot wait to see his family at [place] and realizes that he was in a dark hole after his wifes and he no longer has that view point. was
made aware. I did read psych note. MD put in a dc order for patient . Son will be picking him up at 430. Pt is very excited to get home and has reassured me that he is NO longer suicidals. He made a verbal contract to me that he is in a better
state of mental health.
[2025-10-15 15:41] VITALS: BP 134/61
== END 2025-10-15 15:55 | disposition home health service (06) | DRG 917 ==
LOC: 3 WEST ACU 16:14
PROVIDERS: Internal Medicine; Nurse Practitioner Family; Nurse Practitioner Primary Care; Student in an Organized Health Care Education/Training Program; ADMITTING PHYSICIAN Student in an Organized Health Care Education/Training Program; ATTENDING PHYSICIAN Hospitalist; CONSULT PHYSICIAN Internal Medicine Critical Care Medicine; CONSULT PHYSICIAN Psychiatry & Neurology Psychiatry; EMERGENCY PHYSICIAN Student in an Organized Health Care Education/Training Program
PROC: 0BH17EZ Insertion of Endotracheal Airway into Trachea, Via Natural or Artificial Opening (ICD-10-PCS; 2025-10-08)
PROC: 5A1945Z Respiratory Ventilation, 24-96 Consecutive Hours (ICD-10-PCS; 2025-10-08)
DX: T42.6X2A Poisoning by other antiepileptic and sedative-hypnotic drugs, intentional self-harm, initial encounter (principal); J96.01 Acute respiratory failure with hypoxia; J96.91 Respiratory failure, unspecified with hypoxia; T83.518A Infection and inflammatory reaction due to other urinary catheter, initial encounter; N39.0 Urinary tract infection, site not specified; E87.1 Hypo-osmolality and hyponatremia; Z99.11 Dependence on respirator [ventilator] status; E44.0 Moderate protein-calorie malnutrition; T42.4X2A Poisoning by benzodiazepines, intentional self-harm, initial encounter; Z91.52 Personal history of nonsuicidal self-harm; J44.9 Chronic obstructive pulmonary disease, unspecified; F17.200 Nicotine dependence, unspecified, uncomplicated; F41.9 Anxiety disorder, unspecified; F31.9 Bipolar disorder, unspecified; Y84.6 Urinary catheterization as the cause of abnormal reaction of the patient, or of later complication, without mention of misadventure at the time of the procedure; I95.2 Hypotension due to drugs; I95.9 Hypotension, unspecified; L89.151 Pressure ulcer of sacral region, stage 1; F43.10 Post-traumatic stress disorder, unspecified; Z79.899 Other long term (current) drug therapy; Z68.21 Body mass index [BMI] 21.0-21.9, adult
CPT/HCPCS: 31500; 36600; 43752; 71045; 80048; 80053; 80143; 80179; 80306; 81003; 81015; 82077; 82805; 83036; 83735; 83935; 84100; 84300; 84478; 84484; 85014; 85018; 85025; 85027; 85379; 85610; 85730; 87040; 87077; 87086; 87186; 93005; 94002; 94003; 94640; 96365; 96375; 97162; 97166; 97530; 99291